=== PATIENT | female | born 1960 | race Two or more races ===

== ENCOUNTER 2020-06-02 06:30 | Outpatient (REF) | payer OTHER, SELFPAY ==
[2020-06-02 07:07] LABS: MANUAL DIFF FLAG NO
[2020-06-02 07:10] LABS: Basophils Percent Auto 0.6 % (0-2); Eosinophils Absolute Auto 0.1 X10*3/uL (0.0-0.4); Eosinophils Percent Auto 1.9 % (0-4); Hematocrit 40.2 % (37-47); Hemoglobin 13.1 g/dl (12.0-16.0); Imm Gran Abs Auto 0.02 X10*3/uL (0.00-0.03); Imm Gran Pct Auto 0.3 % (0.0-0.4); Lymphocytes Absolute Auto 2.4 X10*3/uL (1.2-4.9); Lymphocytes Percent Auto 37.9 % (20-40); Mean Corpuscular HGB Conc 32.6 g/dl (31.0-35.0); Mean Corpuscular Hemoglobin 30.2 pg (27.0-33.0); Mean Corpuscular Volume 92.6 fL (80-98); Mean Platelet Volume 10.7 fL (9.4-12.3); Monocytes Absolute Auto 0.4 X10*3/uL (0.1-1.2); Monocytes Percent Auto 7.1 % (2-11); Neutrophils Absolute Auto 3.2 X10*3/uL (2.0-8.3); Neutrophils Percent Auto 52.2 % (45-73); Platelet Count 335 X10*3/uL (160-400); Red Blood Count 4.34 X10*6/uL (4.20-5.50); Red Cell Distribution Width 12.4 % (11.0-16.0); White Blood Count 6.2 X10*3/uL (4.8-10.8)
[2020-06-02 07:48] LABS: Alanine Aminotransferase 17 U/L (0-31); Albumin Level 4.4 g/dL (3.5-5.0); Alkaline Phosphatase 71 U/L (39-117); Anion Gap 13 (12-20); Aspartate Amino Transferase 18 U/L (5-31); Bilirubin Total 0.8 mg/dL (0.0-1.0); Blood Urea Nitrogen 13 mg/dL (9-16); Calcium 8.9 mg/dL (8.4-10.2); Carbon Dioxide 25 mmol/L (22-29); Chloride 106 mmol/L (96-108); Estimated Glomerular Filt Rate > 60; Glucose Fasting 109 mg/dL (60-99); Potassium 4.6 mmol/l (3.3-5.1); Sodium 139 mmol/L (135-145); Total Protein 7.3 g/dL (6.5-8.0)
[2020-06-02 08:08] LABS: Free T4 (Free Thyroxine) 0.99 ng/dL (0.71-1.85); Thyroid Stimulating Hormone 2.83 uIU/mL (0.32-4.0)
== END 2020-06-02 06:31 | disposition home or self-care (01) ==
LOC: HO.LAB 06:30
PROVIDERS: Visit Provider Internal Medicine
DX: Z00.00 Encounter for general adult medical examination without abnormal findings (principal); Z13.29 Encounter for screening for other suspected endocrine disorder
CPT/HCPCS: 36415; 80053; 84439; 84443; 85025

== ENCOUNTER 2020-06-21 12:52 | Outpatient (REF) | payer OTHER, SELFPAY ==
--- NOTE | ~2020-06-21 | XR_ITS ---
EXAMINATION: XR HIP, LEFT CLINICAL INFORMATION: Left hip pain. COMPARISON: None TECHNIQUE: Two views of the left hip. FINDINGS: Mild joint space narrowing with small marginal osteophytes. No osseous erosion. No fracture or dislocation. Small marginal osteophytes at the symphysis pubis. No abnormal soft tissue calcification. XR/XR hip LT min 2V IMPRESSION: Mild left hip osteoarthritis. Mild degenerative arthritis at the symphysis pubis.
== END 2020-06-21 12:53 | disposition home or self-care (01) ==
LOC: HO.XRAY 12:52
PROVIDERS: PCP Internal Medicine; Visit Provider Internal Medicine
DX: M25.552 Pain in left hip (principal)
CPT/HCPCS: 73502

== ENCOUNTER 2020-08-24 11:42 | Outpatient (REF) | payer OTHER, SELFPAY ==
[2020-08-24 12:45] LABS: COVID-19 Test Negative (Negative)
== END 2020-08-24 11:43 | disposition home or self-care (01) ==
LOC: HO.LAB 11:42
PROVIDERS: Visit Provider Internal Medicine
DX: Z20.822 Contact with and (suspected) exposure to COVID-19 (principal)
CPT/HCPCS: 36415; 87635; C9803; U0003; U0005

== ENCOUNTER 2020-08-30 15:07 | Outpatient (REF) | payer OTHER, SELFPAY ==
[2020-08-30 15:38] LABS: COVID-19 Test Negative (Negative)
== END 2020-08-30 15:08 | disposition home or self-care (01) ==
LOC: HO.EMPCOV 15:07
PROVIDERS: Visit Provider Internal Medicine
DX: Z20.822 Contact with and (suspected) exposure to COVID-19 (principal)
CPT/HCPCS: 36415; 87635; C9803

== ENCOUNTER 2020-10-31 14:06 | Outpatient (REF) | payer OTHER, SELFPAY ==
[2020-10-31 14:30] VITALS: BP 149/78; PULSE 78; RESP 16; TEMP 36.7; O2SAT 98; BMI 28.3
[2020-10-31 14:58] LABS: COVID-19 Test Negative (Negative)
--- NOTE | 2020-10-31 15:00 | ED.MEDCLEAR ---
HPI - Medical Clearance General Chief complaint: Medical Clearance Stated complaint: covid test Time Seen by Provider: 10/31/20 14:47 Related Information Allergies Allergy/AdvReac Type Severity Reaction Status Date / Time ibuprofen [IBUPROFEN] Allergy Unknown HIVES Verified 10/31/20 14:33 [facility]LY [facility] Past Medical History Medical History (Updated 10/31/20 @ 15:01 by Tila Kaba DO) Hypertension Social History Social History Advance Directives: Yes Advance Directives Information Provided: Yes Advance Directives on File: No Physical Exam Vital Signs: Vital Signs: Last Vital Signs Temp 98.0 F 10/31/20 14:30 Pulse 78 10/31/20 14:30 Resp 16 10/31/20 14:30 BP 149/78 H 10/31/20 14:30 Pulse Ox 98 10/31/20 14:30 Body Mass Index 28.3 MDM - Medical Clearance Lab Data Labs: Lab Results 10/31/20 Range/Units 14:36 COVID-19 (DIANA) Negative (Negative) COVID-19 Clin Com See Note Discharge Plan Discharge Clinical Impression: COVID-19 ruled out by laboratory testing Patient Disposition: Home, Self-Care Instructions: COVID-19 (Coronavirus Disease 2019) (ED) Additional Instructions: return to ED for any worsening symptoms or concerns COVID TEST NEGATIVE
== END 2020-10-31 15:06 | disposition home or self-care (01) ==
LOC: HO.LAB 15:05
PROVIDERS: Visit Provider Internal Medicine
DX: Z20.822 Contact with and (suspected) exposure to COVID-19 (principal)
CPT/HCPCS: 36415; 87635; 99282

== ENCOUNTER 2020-11-08 06:50 | Outpatient (REF) | payer OTHER, SELFPAY ==
[2020-11-08 08:12] LABS: COVID-19 Test Negative (Negative)
== END 2020-11-08 06:51 | disposition home or self-care (01) ==
LOC: HO.LAB 06:50
PROVIDERS: Visit Provider Internal Medicine
DX: Z20.822 Contact with and (suspected) exposure to COVID-19 (principal)
CPT/HCPCS: 36415; 87635; C9803

== ENCOUNTER 2021-01-31 11:42 | Outpatient (REF) | payer OTHER, SELFPAY | END 2021-01-31 11:43 | disposition home or self-care (01) | LOC: HO.LAB 11:42 | PROVIDERS: Visit Provider Internal Medicine | DX: Z20.822 Contact with and (suspected) exposure to COVID-19 (principal) | CPT/HCPCS: C9803; U0003; U0005 ==

== ENCOUNTER 2021-02-07 14:33 | Outpatient (REF) | payer OTHER, SELFPAY | END 2021-02-07 14:34 | disposition home or self-care (01) | LOC: HO.LAB 14:33 | PROVIDERS: PCP Internal Medicine; Visit Provider Internal Medicine | DX: Z20.822 Contact with and (suspected) exposure to COVID-19 (principal) | CPT/HCPCS: C9803; U0003; U0005 ==

== ENCOUNTER 2021-02-17 09:06 | Outpatient (REF) | payer OTHER, SELFPAY ==
[2021-02-17 10:39] LABS: COVID-19 Test Negative (Negative)
== END 2021-02-17 09:07 | disposition home or self-care (01) ==
LOC: HO.EMPCOV 09:06
PROVIDERS: Visit Provider Internal Medicine
DX: Z20.822 Contact with and (suspected) exposure to COVID-19 (principal)
CPT/HCPCS: 36415; 87635; C9803

== ENCOUNTER 2021-04-26 | Outpatient (REF) | payer OTHER, SELFPAY | END 2021-04-26 00:01 | disposition home or self-care (01) | LOC: HO.LNP | PROVIDERS: PCP Internal Medicine; Visit Provider Internal Medicine | DX: Z12.4 Encounter for screening for malignant neoplasm of cervix (principal) | CPT/HCPCS: 88142 ==

== ENCOUNTER 2021-04-27 06:52 | Outpatient (REF) | payer OTHER, SELFPAY ==
[2021-04-27 07:06] LABS: MANUAL DIFF FLAG NO
[2021-04-27 07:14] LABS: Basophils Percent Auto 0.5 % (0-2); Eosinophils Absolute Auto 0.1 X10*3/uL (0.0-0.4); Eosinophils Percent Auto 1.6 % (0-4); Hematocrit 40.6 % (37.0-47.0); Hemoglobin 13.2 g/dl (12.0-16.0); Imm Gran Abs Auto 0.01 X10*3/uL (0.00-0.03); Imm Gran Pct Auto 0.2 % (0.0-0.4); Lymphocytes Absolute Auto 2.4 X10*3/uL (1.2-4.9); Lymphocytes Percent Auto 37.9 % (20-40); Mean Corpuscular HGB Conc 32.5 g/dl (31.0-35.0); Mean Corpuscular Hemoglobin 30.3 pg (27.0-33.0); Mean Corpuscular Volume 93.3 fL (80.0-98.0); Mean Platelet Volume 10.4 fL (9.4-12.3); Monocytes Absolute Auto 0.4 X10*3/uL (0.1-1.2); Monocytes Percent Auto 5.8 % (2-11); Neutrophils Absolute Auto 3.4 x10*3/uL (2.0-8.3); Platelet Count 338 X10*3/uL (160-400); Red Blood Count 4.35 X10*6/uL (4.20-5.50); Red Cell Distribution Width 12.7 % (11.0-16.0); White Blood Count 6.2 X10*3/uL (4.8-10.8)
[2021-04-27 07:29] LABS: Alanine Aminotransferase 16 U/L (0-31); Albumin Level 4.3 g/dL (3.5-5.0); Alkaline Phosphatase 72 U/L (39-117); Anion Gap 10 (12-20); Aspartate Amino Transferase 18 U/L (5-31); Bilirubin Total 0.8 mg/dL (0.0-1.0); Blood Urea Nitrogen 10 mg/dL (9-16); Calcium 9.2 mg/dL (8.4-10.2); Carbon Dioxide 26 mmol/L (22-29); Chloride 108 mmol/L (96-108); Estimated Glomerular Filt Rate > 60; Glucose Fasting 100 mg/dL (60-99); Potassium 4.3 mmol/L (3.3-5.1); Sodium 140 mmol/L (135-145); Total Protein 7.2 g/dL (6.5-8.0)
[2021-04-27 07:54] LABS: Thyroid Stimulating Hormone 3.36 uIU/mL (0.32-4.0)
== END 2021-04-27 06:53 | disposition home or self-care (01) ==
LOC: HO.LAB 06:52
PROVIDERS: PCP Internal Medicine; Visit Provider Internal Medicine
DX: Z00.00 Encounter for general adult medical examination without abnormal findings (principal); I10 Essential (primary) hypertension; R53.83 Other fatigue
CPT/HCPCS: 36415; 80053; 84443; 85025

== ENCOUNTER 2021-05-17 11:32 | Outpatient (REF) | payer OTHER, SELFPAY | END 2021-05-17 11:33 | disposition home or self-care (01) | LOC: HO.LAB 11:32 | PROVIDERS: Visit Provider Internal Medicine | DX: Z13.89 Encounter for screening for other disorder (principal) ==

== ENCOUNTER 2021-07-06 08:09 | Outpatient (REF) | payer OTHER, SELFPAY ==
--- NOTE | ~2021-07-06 | MM_ITS ---
EXAMINATION: MM SCREENING DIGITAL BREAST TOMOSYNTHESIS, BILATERAL CLINICAL INFORMATION: Screening. Asymptomatic. The lifetime risk of breast cancer based on the Tyrer-Cuzick Model is 5%. COMPARISON: Mammography: 09/17/2018, 09/14/2017, 04/12/2016 TECHNIQUE: Digital breast tomosynthesis is performed in both the craniocaudal and mediolateral oblique views along with computer-aided detection (CAD). Synthesized 2D images are generated from the tomosynthesis. FINDINGS: The breasts are heterogeneously dense, which may obscure small masses (ACR BI-RADS breast composition Category c). There are no significant masses, abnormal calcifications, or other abnormalities. Diffuse bilateral scattered punctate calcifications are again demonstrated, similar in number and distribution to prior exam. There is no developing density or architectural abnormality. The axilla are unremarkable. Mild bilateral nipple retraction is a chronic finding. MM/MM tomosynthesis screening BI IMPRESSION: No significant changes from prior studies. ASSESSMENT: BI-RADS 2: Benign RECOMMENDATION: Routine annual mammography screening. This patient's information was entered into a reminder system with a target due date for their next mammogram.
== END 2021-07-06 08:10 | disposition home or self-care (01) ==
LOC: HO.MAMMO 08:09
PROVIDERS: PCP Internal Medicine; Visit Provider Internal Medicine
DX: Z12.31 Encounter for screening mammogram for malignant neoplasm of breast (principal)
CPT/HCPCS: 77063; 77067

== ENCOUNTER 2021-07-22 07:58 | Outpatient (REF) | payer OTHER, SELFPAY ==
--- NOTE | ~2021-07-22 | US_ITS ---
EXAMINATION: US RETROPERITONEAL LIMITED (AORTA) CLINICAL INFORMATION: Family history of AAA. COMPARISON: None TECHNIQUE: Valenzuela-scale, color Doppler and spectral Doppler evaluation of the abdominal aorta. FINDINGS: There is scattered atherosclerotic disease without evidence of abdominal aortic aneurysm. The measurements of the aorta in maximum AP and transverse dimensions respectively are as follows: Proximal: 2.1 x 2.5 cm. Mid: 1.7 x 1.6 cm. Distal: 1.5 x 1.3 cm. PSV: 66 cm/s. The measurements of the common iliac arteries in maximum AP and TRV dimensions are as follows: Right Common Iliac Artery: 1.1 x 1.0 cm. Left Common Iliac Artery: 1.1 x 1.1 cm. US/US aorta IMPRESSION: 1. There is scattered atherosclerotic disease without evidence of abdominal aortic aneurysm..
== END 2021-07-22 07:59 | disposition home or self-care (01) ==
LOC: HO.US 07:58
PROVIDERS: PCP Internal Medicine; Visit Provider Internal Medicine
DX: I70.0 Atherosclerosis of aorta (principal); Z82.49 Family history of ischemic heart disease and other diseases of the circulatory system
CPT/HCPCS: 76775

== ENCOUNTER 2021-10-16 07:01 | Emergency (ER) | payer OTHER, SELFPAY ==
--- NOTE | ~2021-10-16 | XR_ITS ---
EXAMINATION: CR RIBS, RIGHT WITH CHEST X-RAY CLINICAL INFORMATION: Right anterior rib pain after fall. Fall on right side. COMPARISON: Chest x-ray dated 05/25/2018. TECHNIQUE: 3 views of the right ribs were obtained. FINDINGS: The cardiomediastinal silhouette is within normal limits in size. Lungs bilaterally are symmetrically expanded and clear. No focal consolidation, effusion or pneumothorax is seen. There is a mild S-shaped thoracolumbar scoliosis. There is a minimally displaced fracture of the lateral right ninth and 10th ribs and the anterior right eighth rib at the costochondral junction. XR/XR ribs RT min 3V w CXR1V IMPRESSION: Minimally displaced fractures of the right eighth, ninth and 10th ribs. No pneumothorax or pleural effusion.
[2021-10-16 07:15] VITALS: BP 172/88; PULSE 80; RESP 16; TEMP 36.1; BMI 29.2
--- NOTE | 2021-10-16 08:19 | ED_ITS ---
HPI - Fall General Chief Complaint: Fall Stated Complaint: Fall/R flank pain Time Seen by Provider: 10/16/21 07:49 Source: patient Mode of arrival: ambulatory History of Present Illness HPI Narrative: 61-year-old female without significant past medical history states that she came home the previous night, had to go to the bathroom really bad rushed into the bathroom tripped and slid falling onto her right chest wall in her bathroom whic h caused her significant pain. She states that on breathing there is increased pain on the right side of her chest but notes that there is no bruising. She has no history of smoking, asthma, COPD. Related Data Previous Rx's Medication Instructions Recorded ketorolac 10 mg tablet 10 mg PO Q6H PRN 5 Days #20 tab 10/16/21 Allergies Allergy/AdvReac Type Severity Reaction Status Date / Time ibuprofen [IBUPROFEN] Allergy Unknown HIVES Verified 10/31/20 14:33 Review of Systems Review of Systems: Pertinent positives and negatives as stated in HPI 10 point review of systems is otherwise negative. PMFSH Past Medical History Source: nursing notes reviewed Medical History Hypertension Social History Social History Patient Tobacco Use Status: Never used Tobacco Use of substances other than those prescribed or required for medical reasons: No Advance Directives: No Advance Directives Information Provided: No Physical Exam Vital Signs: Vital Signs: Last Vital Signs Temp 97.0 F 10/16/21 07:15 Pulse 74 10/16/21 08:23 Resp 16 10/16/21 08:23 BP 177/91 H 10/16/21 08:23 Pulse Ox 99 10/16/21 08:23 BMI result Body Mass Index 29.2 VITAL SIGNS: Reviewed. GENERAL: Well developed, well nourished, in no acute distress. HEAD: Normocephalic/atraumatic EYES: PERRLA, EOMI EARS: Ext canals without abnormality OROPHARYNX: no oral lesions noted, posterior pharynx clear LUNGS: Normal breath sounds. No adventitious sounds or accessory muscle use. SpO2<99>; CHEST WALL: There is reproducible chest wall tenderness at the approximate 8th 9th red without noted deformity or crepitus. CARDIOVASCULAR: Regular rate and rhythm without noted murmurs ABDOMEN: Soft, non-tender, non-distended with bowel sounds. MUSCULOSKELETAL: No tenderness, deformities, or effusions noted on gross inspection. EXTREMITIES: No cyanosis, clubbing or edema. SKIN: Inspection of the skin reveals no rashes NEUROLOGIC: Alert and oriented x 4. Course Course Course Narrative: 61-year-old female with history and clinical presentation most consistent with rib fractures and as there are bilateral breath sounds do not suspect pneumothorax. On review of all investigations patient has ribs 8 through 9 fractures without displacement. She was provided with combination analgesics including Toradol as well as lidocaine patch, is declining admission, she has received incentive spirometry training and is oxygenating well on room air. She has been formed of all results. Discharge Plan Discharge Clinical Impression: Multiple fractures of ribs of right side Patient Disposition: Home, Self-Care Instructions: How to Use an Incentive Spirometer (ED), Rib Fracture (ED) Additional Instructions: 1. Resume all home medications as prescribed. 2. Tylenol 1000 mg, orally, every 6 hours as needed for pain control. Do not exceed 4000 mg within 24 hours. 3. Lidocaine patch, apply to the area of maximal tenderness as directed on the outside packaging. 4. Please continue to use the incentive spirometer while you are awake, 8-10 times, every 4 hours. 5. Please follow-up with your primary care provider in the next 1-2 days for re- evaluation. Return to the ER for worsening symptoms. Prescriptions: New ketorolac 10 mg tablet 10 mg PO Q6H PRN (Reason: pain) 5 Days Qty: 20 0RF Rx Instructions: Patient received Toradol in the emergency room. Referrals: Chris Warner MD [Primary Care Provider] - Stand Alone Forms: Work/School Release
[2021-10-16 08:23] VITALS: BP 177/91; PULSE 74; RESP 16; O2SAT 99
[2021-10-16] MEDS: Acetaminophen 325 MG TABLET 975 MG PO (08:30)
[2021-10-16] MEDS: Lidocaine 4 % Patch ADH..PATCH 1 PATCH TRANSDERMA (08:32)
--- NOTE | 2021-10-16 09:11 | PC.NURSE ---
Pt states that she has a remote history of rash reaction with high dose ibuprofen many years ago. She states that she has however taken ibuprofen and naproxen since then many times with no reaction.
--- NOTE | 2021-10-16 09:14 | PC.NURSE ---
Pt states that she continues to have pain despite previous medications. aware and plans to order additional pain medication.
[2021-10-16] MEDS: Ketorolac Tromethamine 15 MG/ML VIAL IM (10:16)
== END 2021-10-16 10:29 | disposition home or self-care (01) ==
PROVIDERS: Emergency Provider Student in an Organized Health Care Education/Training Program; PCP Internal Medicine
DX: S22.41XA Multiple fractures of ribs, right side, initial encounter for closed fracture (principal); W01.198A Fall on same level from slipping, tripping and stumbling with subsequent striking against other object, initial encounter; Y93.89 Activity, other specified; Y92.002 Bathroom of unspecified non-institutional (private) residence as the place of occurrence of the external cause; Y99.9 Unspecified external cause status
CPT/HCPCS: 71101; 96372; 99284; J1885

== ENCOUNTER 2021-12-22 08:40 | Outpatient (REF) | payer OTHER, SELFPAY ==
--- NOTE | ~2021-12-22 | XR_ITS ---
EXAMINATION: XR RIBS, RIGHT WITH PA CHEST CLINICAL INFORMATION: Nonhealing rib fractures. COMPARISON: Radiographs dated 10/16/2021. TECHNIQUE: 4 views of the right ribs were obtained, together with a PA view of the chest. FINDINGS: Lungs are clear. No consolidation, pneumothorax, or pleural effusion. The cardiomediastinal silhouette and pulmonary vasculature are normal. A mildly displaced fracture seen of the distal right ninth rib, adjacent callus formation. No further fractures are identified. XR/XR ribs RT min 3V w CXR1V IMPRESSION: A mildly displaced fracture is redemonstrated of the distal right ninth rib, with adjacent periosteal callus formation. No further fracture is seen. There is no pleural effusion or pneumothorax.
== END 2021-12-22 08:41 | disposition home or self-care (01) ==
LOC: HO.XRAY 08:40
PROVIDERS: PCP Internal Medicine; Visit Provider Internal Medicine
DX: S22.32XD Fracture of one rib, left side, subsequent encounter for fracture with routine healing (principal)
CPT/HCPCS: 71101

== ENCOUNTER 2022-05-24 13:44 | Outpatient (REF) | payer OTHER, SELFPAY ==
--- NOTE | ~2022-05-24 | XR_ITS ---
EXAMINATION: XR MASTOIDS CLINICAL INFORMATION: Left mastoid pain COMPARISON: None TECHNIQUE: 4 views. FINDINGS: Bilateral mastoid sinuses are well-aerated and clear. No bony abnormality seen. The soft tissues are normal. XR/XR mastoids min 3V IMPRESSION: Unremarkable bilateral mastoid sinus exam.
[2022-05-24 13:57] LABS: MANUAL DIFF FLAG NO
[2022-05-24 14:25] LABS: Basophils Percent Auto 0.5 % (0-2); Eosinophils Absolute Auto 0.1 X10*3/uL (0.0-0.4); Hematocrit 39.4 % (37.0-47.0); Hemoglobin 12.7 g/dl (12.0-16.0); Imm Gran Abs Auto 0.02 X10*3/uL (0.00-0.03); Imm Gran Pct Auto 0.2 % (0.0-0.4); Lymphocytes Absolute Auto 2.8 X10*3/uL (1.2-4.9); Lymphocytes Percent Auto 34.8 % (20-40); Mean Corpuscular HGB Conc 32.2 g/dl (31.0-35.0); Mean Corpuscular Volume 93.1 fL (80.0-98.0); Mean Platelet Volume 10.8 fL (9.4-12.3); Monocytes Absolute Auto 0.5 X10*3/uL (0.1-1.2); Monocytes Percent Auto 6.3 % (2-11); Neutrophils Absolute Auto 4.7 x10*3/uL (2.0-8.3); Neutrophils Percent Auto 57.2 % (45-73); Platelet Count 341 X10*3/uL (160-400); Red Blood Count 4.23 X10*6/uL (4.20-5.50); Red Cell Distribution Width 12.9 % (11.0-16.0); White Blood Count 8.2 X10*3/uL (4.8-10.8)
[2022-05-24 14:55] LABS: C Reactive Protein 0.13 mg/dL (< or = 0.50)
== END 2022-05-24 13:45 | disposition home or self-care (01) ==
LOC: HO.XRAY 13:44
PROVIDERS: PCP Internal Medicine; Visit Provider Internal Medicine
DX: H92.02 Otalgia, left ear (principal); I10 Essential (primary) hypertension
CPT/HCPCS: 36415; 70130; 85025; 86140

== ENCOUNTER 2022-08-14 08:58 | Outpatient (REF) | payer OTHER, SELFPAY ==
--- NOTE | ~2022-08-14 | XR_ITS ---
EXAMINATION: XR RIBS, RIGHT CLINICAL INFORMATION: Right rib pain. COMPARISON: 12/22/2021 TECHNIQUE: PA chest and 3 views of the right ribs. FINDINGS: There is no evidence of acute parenchymal disease, pneumothorax, or pleural effusion. Heart normal size. No evidence of pulmonary edema. There is a nondisplaced fracture anterior aspect of the right 9th rib which is old. No acute displaced right rib fracture is appreciated on provided imaging. XR/XR ribs RT min 3V w CXR1V IMPRESSION: No acute parenchymal disease within the chest. No new displaced right rib fracture. Old right 9th rib fracture.
== END 2022-08-14 08:59 | disposition home or self-care (01) ==
LOC: HO.XRAY 08:58
PROVIDERS: PCP Internal Medicine; Visit Provider Internal Medicine
DX: R07.81 Pleurodynia (principal)
CPT/HCPCS: 71101

== ENCOUNTER 2022-08-16 10:42 | Outpatient (REF) | payer OTHER, SELFPAY ==
[2022-08-16 10:57] LABS: MANUAL DIFF FLAG NO
[2022-08-16 11:33] LABS: Appearance Urine Clear; Color Urine Yellow; Glucose Urine UA Negative (Negative); Leukocyte Esterase Urine Negative (Negative); Nitrite Urine Negative (Negative); Specific Gravity - Urine 1.025 (1.005-1.025); Urine Blood Negative (Negative); Urine Ketones Negative (Negative); Urine Protein Trace mg/dL (Neg-Trace)
[2022-08-16 11:41] LABS: Basophils Percent Auto 0.4 % (0-2); Eosinophils Absolute Auto 0.1 X10*3/uL (0.0-0.4); Eosinophils Percent Auto 1.2 % (0-4); Hematocrit 41.6 % (37.0-47.0); Hemoglobin 13.3 g/dl (12.0-16.0); Imm Gran Abs Auto 0.02 X10*3/uL (0.00-0.03); Imm Gran Pct Auto 0.3 % (0.0-0.4); Lymphocytes Absolute Auto 2.2 X10*3/uL (1.2-4.9); Lymphocytes Percent Auto 30.5 % (20-40); Mean Corpuscular Hemoglobin 29.6 pg (27.0-33.0); Mean Corpuscular Volume 92.7 fL (80.0-98.0); Mean Platelet Volume 10.8 fL (9.4-12.3); Monocytes Absolute Auto 0.4 X10*3/uL (0.1-1.2); Monocytes Percent Auto 5.6 % (2-11); Neutrophils Absolute Auto 4.5 x10*3/uL (2.0-8.3); Platelet Count 349 X10*3/uL (160-400); Red Blood Count 4.49 X10*6/uL (4.20-5.50); Red Cell Distribution Width 13.1 % (11.0-16.0); White Blood Count 7.3 X10*3/uL (4.8-10.8)
[2022-08-16 12:17] LABS: Anion Gap 12 (12-20); Blood Urea Nitrogen 11 mg/dL (9-16); C Reactive Protein 0.15 mg/dL (< or = 0.50); Calcium 9.4 mg/dL (8.4-10.2); Carbon Dioxide 28 mmol/L (22-29); Chloride 108 mmol/L (96-108); Estimated Glomerular Filt Rate > 60; Glucose Random 95 mg/dL (60-115); Potassium 4.5 mmol/L (3.3-5.1); Sodium 143 mmol/L (135-145)
== END 2022-08-16 10:43 | disposition home or self-care (01) ==
LOC: HO.LAB 10:42
PROVIDERS: PCP Internal Medicine; Visit Provider Internal Medicine
DX: R10.9 Unspecified abdominal pain (principal); M54.9 Dorsalgia, unspecified
CPT/HCPCS: 36415; 80048; 81003; 85025; 86140; 87086

== ENCOUNTER 2022-10-28 20:01 | Emergency (ER) | payer OTHER, SELFPAY ==
--- NOTE | ~2022-10-28 | CT_ITS ---
EXAMINATION: CT SOFT TISSUE NECK WITH CONTRAST CLINICAL INFORMATION: Left swollen tonsil, question abscess COMPARISON: None available. TECHNIQUE: Following the intravenous administration of 60 mL of Omnipaque 350 intravenous contrast, helical imaging was performed in the axial plane with generation of coronal and sagittal reformatted images. This CT examination was performed using dose optimization techniques as appropriate, variously including the following: *Automated exposure control *Adjustment of mA and/or kV according to patient size (this includes techniques or standardized protocols for targeted exams where dose is matched to indication/reason for exam; i.e. extremities or head) *Use of iterative reconstruction technique DLP: 379 mGy-cm FINDINGS: There is prominent enhancement of the nasopharyngeal mucosa suggesting pharyngitis. There is asymmetric enlargement and heterogeneity of the left palatine tonsil which has a somewhat striated appearance suspicious for tonsillitis; no discrete abscess is seen. Few mildly prominent upper left cervical lymph nodes are suspected to be reactive. The parapharyngeal fat is preserved. The communications project lead, parotid, and submandibular spaces otherwise appear normal and symmetric bilaterally. The carotid vasculature is patent. The thyroid gland is unremarkable. The lung apices are clear. Visualized portions of the brain parenchyma are unremarkable. The mastoid air cells are well aerated. Partially opacified right sphenoid sinus. The visualized orbits are unremarkable. The mandibular condyles are well-seated in the condylar fossa. There is degenerative change at the atlantodens articulation. There is disc space narrowing at C5-C6 with associated endplate osteophytes. No acute fracture is seen. CT/CT soft tissue neck w IV con IMPRESSION: Asymmetric enlargement and heterogeneity of the left palatine tonsil suspicious for tonsillitis. No discrete abscess identified. Prominent nasopharyngeal mucosa suggesting pharyngitis.
[2022-10-28 20:02] VITALS: BP 159/93; PULSE 99; RESP 18; TEMP 36.8; O2SAT 99; BMI 29.3
--- NOTE | 2022-10-28 20:04 | ED_ITS ---
HPI - General Adult General Chief complaint: Upper Respiratory Symptoms Stated complaint: swollen throat Time Seen by Provider: 10/28/22 21:43 Source: patient Mode of arrival: ambulatory Limitations: no limitations History of Present Illness HPI narrative: 62-year-old female who presents emergency department for evaluation of headache and sore throat. Patient states that over the past 4 days she has developed a migraine headache, she does have a history of migraines. States that the pain is located in the frontal aspect of her head, the pain is a constant, pressure- like sensation which is 6/10 at its worst. She does have photophobia with no other associated symptoms. She states that over the past 2 days she has developed a sore throat left greater than right, she states that it is painful to swallow. She has not had any difficulty swallowing her secretions or difficulty breathing. She her, rhinorrhea, cough, chest pain, shortness of breath, nausea, vomiting, diarrhea, weakness. As noted occasional shaking chills. Related Data Previous Rx's Medication Instructions Recorded ketorolac 10 mg tablet 10 mg PO Q6H PRN pain 5 days #20 10/16/21 tabs metoclopramide HCl 10 mg tablet 10 mg PO Q6H PRN nausea and 10/28/22 (Reglan) vomiting #14 tabs penicillin V potassium 500 mg 500 mg PO QID 10 days #40 tabs 10/28/22 tablet Allergies Allergy/AdvReac Type Severity Reaction Status Date / Time ibuprofen [IBUPROFEN] Allergy Unknown HIVES Verified 10/31/20 14:33 Review of Systems Review of Systems: Yes all other systems are reviewed and are negative [facility] Past Medical History Medical History Hypertension Social History Social History Patient Tobacco Use Status: Never used Tobacco Smoked in Last 30 Days: No Advance Directives: No Advance Directives Information Provided: No Physical Exam ED Vital Signs: Vital Signs - 24 hr 10/28/22 20:02 Temperature 98.3 F Pulse Rate 99 Respiratory Rate 18 Blood Pressure 159/93 H Pulse Oximetry 99 Oxygen Delivery Method Room Air BMI result Body Mass Index 29.3 Const Other: Awake, alert, female patient, pleasant, cooperative, no distress, has no difficulty handling her secretions HENMT Head: Yes normal to inspection, Yes normocephalic and Yes atraumatic Ears: external ears normal General nose exam: Normal external nose present Face and sinus: Yes normal facial exam Mouth: Normal oral and palatal mucosa present, moist mucous membranes, no audible dysphonia, no drooling, no muffled voice, no trismus and other (Left tonsillar exudates with no significant tonsillar swelling) Throat: Yes posterior oropharynx normal Eyes General: appearance normal, both eyes and all related structures Pupils: Equal, round and reactive pupils present Neck Neck: Yes normal visual inspection, Yes no lymphadenopathy, Yes trachea midline and Yes supple Chest Chest palpation & inspection: normal inspection of the chest and normal palpation of entire chest wall Resp Effort & Inspection: normal respiratory effort and able to speak in complete sentences Auscultation: clear to auscultation bilaterally Cardio Rate: regular rate Rhythm: regular rhythm Heart sounds: S1 normal heart sound present, S2 normal heart sound present and no murmurs GI Inspection: Yes normal to inspection Palpation (GI): Soft to palpation, nontender and no guarding Auscultation: normal bowel sounds General: Yes no CVA tenderness Back/Spine/Pelvis Back: no CVA tenderness Skin General skin exam: no rashes or lesions noted Neuro Cranial nerves: Yes CN's II-XII intact bilaterally and Yes Equal, round and reactive pupils present Cognition (Neuro): normal cognition Motor exam (neuro): 5/5 motor strength present throughout Extrem General: Yes normal to inspection Psych Appearance: grossly normal Speech and movement: Normal speech and movement present Affect: normal affect Attitude: cooperative Thought process: Normal thought process present Thought content: Normal thought content present Course Course Course Narrative: This is an RME: Additional HPI, ROS, PE not included below will be deferred to primary provider. 62-year-old female presents with sore throat for the past few days worsening, did reports changes in voice and difficulty swallowing. Reports associated fatigue, malaise. Physical exam with erythematous posterior pharynx, left tonsil appears edematous, question possible small abscess with some exudate. Plan labs, imaging, CT soft tissue neck to rule out peritonsillar abscess. Strep test ordered. Medications Administered Discontinued Medications Generic Name Dose Route Start Last Admin Trade Name Freq PRN Reason Stop Dose Admin Dexamethasone Sodium Phosphate 10 mg 10/28/22 20:04 10/28/22 20:21 Dexamethasone Sod Phosphate 10 Mg/Ml Vial IVPUSH 10/28/22 20:05 10 mg ONCE ONE Administration Diphenhydramine HCl 50 mg 10/28/22 21:56 10/28/22 22:05 Diphenhydramine Hcl 50 Mg/Ml Vial IVPUSH 10/28/22 21:57 50 mg ONCE STA Administration Iohexol 100 ml 10/28/22 20:58 10/28/22 20:58 Iohexol 350 Mg/Ml 100 Ml Infus..Btl IV 10/28/22 20:59 60 ml ONCE ONE Administration Ketorolac Tromethamine 15 mg 10/28/22 21:56 10/28/22 22:09 Ketorolac Tromethamine 15 Mg/Ml Vial IVPUSH 10/28/22 21:57 15 mg ONCE STA Administration Metoclopramide HCl 10 mg 10/28/22 21:56 10/28/22 22:09 Metoclopramide Hcl 10 Mg/2 Ml Vial IVPUSH 10/28/22 21:57 10 mg ONCE STA Administration Penicillin V Potassium 500 mg 10/28/22 21:56 10/28/22 22:04 Penicillin V Potassium 250 Mg Tablet PO 10/28/22 21:57 500 mg ONCE ONE Administration Medical Decision Making Medical Decision Making MDM Narrative: 62-year-old female with history of migraine headaches, hypertension who presents emergency department for evaluation of headache and sore throat. Vital signs revealed an elevated blood pressure 159/93. Patient's mouth exam did reveal asymmetric exudates on the left with no significant tonsillar swelling, patient has no trismus and no difficulty with handling her secretions. Patient's neurologic exam was nonfocal. Patient was seen by provider at triage and following was ordered: CBC, CMP, rapid strep, CT soft tissue neck with IV contrast to rule out abscess. Patient's migraine headache was treated with Toradol 15 mg IV, Reglan 10 mg IV and Benadryl 50 mg IV. Patient was also given penicillin 500 mg orally for possible tonsillitis/strep throat. 2201: My independent interpretation patient's laboratory evaluation as follows: CBC was normal. CMP unremarkable except for elevated glucose 121. Rapid strep was negative. 2255: The patient's migraine headache is resolved with the above treatment CT scan of the neck did not reveal an abscess but is consistent with left sided tonsillitis Patient will be treated with penicillin 500 mg, 1 pill 4 times a day for 10 days. She was advised broken for pain She was given printed and verbal instructions and discharged home Differential Diagnosis Differential diagnosis includes was not limited to strep pharyngitis, tonsillitis, tonsillar abscess, parapharyngeal cellulitis Admission/Observation Consideration of admission/observation: Escalation of care including admissi on/observation considered Lab Data [facility] Lab Attestation statement: I reviewed the patient's lab results. 10/28/22 20:13 10/28/22 20:13 Labs: Lab Results 10/28/22 10/28/22 10/28/22 Range/Units 20:13 20:13 20:25 WBC 9.3 (4.8-10.8) X10*3/uL RBC 4.51 (4.20-5.50) X10*6/uL Hgb 13.4 (12.0-16.0) g/dl Hct 40.4 (37.0-47.0) % MCV 89.6 (80.0-98.0) fL MCH 29.7 (27.0-33.0) pg MCHC 33.2 (31.0-35.0) g/dl RDW 12.9 (11.0-16.0) % Plt Count 326 (160-400) X10*3/uL MPV 10.1 (9.4-12.3) fL Immature Gran % (Auto) 0.3 (0.0-0.4) % Neut % (Auto) 67.9 (45-73) % Lymph % (Auto) 23.7 (20-40) % [place] % (Auto) 7.8 (2-11) % Eos % (Auto) 0.1 (0-4) % Baso % (Auto) 0.2 (0-2) % Lymph # (Auto) 2.2 (1.2-4.9) X10*3/uL [place] # (Auto) 0.7 (0.1-1.2) X10*3/uL Eos # (Auto) 0.0 (0.0-0.4) X10*3/uL Baso # (Auto) 0.0 (0.0-0.2) X10*3/uL Abs Immat Gran (auto) 0.03 (0.00-0.03) X10*3/uL Absolute Neuts (auto) 6.3 (2.0-8.3) x10*3/uL Absolute Nucleated RBC 0.000 (0.0-0.012) X10*3/uL Nucleated RBC % (auto) 0.0 (0.0-0.2) /100WBC Sodium 138 (135-145) mmol/L Potassium 3.8 (3.3-5.1) mmol/L Chloride 104 (96-108) mmol/L Carbon Dioxide 23 (22-29) mmol/L Anion Gap 15 (12-20) BUN 14 (9-16) mg/dL Creatinine 0.81 (0.5-1.4) mg/dL Estim Creat Clear Calc 68.9 Estimated GFR > 60 Random Glucose 121 H (60-115) mg/dL Calcium 9.5 (8.4-10.2) mg/dL Total Bilirubin 0.5 (0.0-1.0) mg/dL AST 27 (5-31) U/L ALT 18 (0-31) U/L Alkaline Phosphatase 81 (39-117) U/L Total Protein 8.3 H (6.5-8.0) g/dL Albumin 4.2 (3.5-5.0) g/dL S. pyogenes GrpA MARICEL Negative (Negative) Radiology Impression Discussion of test interpretation with radiology: I have reviewed the radiologist's reading. Radiologist Impression: CT soft tissue neck w IV con IMPRESSION: Asymmetric enlargement and heterogeneity of the left palatine tonsil suspicious for tonsillitis. No discrete abscess identified. Prominent nasopharyngeal mucosa suggesting pharyngitis. Dictated By:Jb Johnson MD Discharge Plan Discharge Clinical Impression: Headache, migraine Qualifiers: Migraine type: without aura Status migrainosus presence: without status migrainosus Intractability: not intractable Qualified Code(s): G43.009 - Migrain e without aura, not intractable, without status migrainosus Acute tonsillitis Qualifiers: Pharyngitis/tonsillitis etiology: unspecified etiology Qualified Code(s): J03.90 - Acute tonsillitis, unspecified Patient Disposition: Home, Self-Care Instructions: Migraine Headache (ED), Tonsillectomy (DC) Additional Instructions: Your blood work was unremarkable. Your rapid strep test was negative. The CT scan IV contrast revealed left-sided tonsillitis with no abscess/collection of pus which is reassuring. Take penicillin 500 mg pills, 1 pill 4 times a day for 10 days. Finish the entire antibiotic prescription. Your symptoms are consistent with a migraine. I want you to take the following 3 medications together every 6 hours as needed for headache, nausea or vomiting. Reglan (metoclopramide) in 10 mg, 1 pill Benadryl 25 mg, 2 pills Your naproxen After you take these medications, lie down in a dark quiet room and try to fall asleep. These medications will make you sleepy, do not drive or work after taking these medications. Follow-up with your doctor in 2 days. Please return to the emergency department if your symptoms get worse or if you develop any symptoms that are concerning to you. Prescriptions: New penicillin V potassium 500 mg tablet 500 mg PO QID 10 Days Qty: 40 0RF metoclopramide HCl [Reglan] 10 mg tablet 10 mg PO Q6H PRN (Reason: nausea and vomiting) Qty: 14 0RF No Action ketorolac 10 mg tablet 10 mg PO Q6H PRN (Reason: pain) 5 Days Qty: 20 0RF Rx Instructions: Patient received Toradol in the emergency room.
[2022-10-28 20:17] LABS: MANUAL DIFF FLAG NO
[2022-10-28 20:19] LABS: Basophils Percent Auto 0.2 % (0-2); Eosinophils Percent Auto 0.1 % (0-4); Hematocrit 40.4 % (37.0-47.0); Hemoglobin 13.4 g/dl (12.0-16.0); Imm Gran Abs Auto 0.03 X10*3/uL (0.00-0.03); Imm Gran Pct Auto 0.3 % (0.0-0.4); Lymphocytes Absolute Auto 2.2 X10*3/uL (1.2-4.9); Lymphocytes Percent Auto 23.7 % (20-40); Mean Corpuscular HGB Conc 33.2 g/dl (31.0-35.0); Mean Corpuscular Hemoglobin 29.7 pg (27.0-33.0); Mean Corpuscular Volume 89.6 fL (80.0-98.0); Mean Platelet Volume 10.1 fL (9.4-12.3); Monocytes Absolute Auto 0.7 X10*3/uL (0.1-1.2); Monocytes Percent Auto 7.8 % (2-11); Neutrophils Absolute Auto 6.3 x10*3/uL (2.0-8.3); Neutrophils Percent Auto 67.9 % (45-73); Platelet Count 326 X10*3/uL (160-400); Red Blood Count 4.51 X10*6/uL (4.20-5.50); Red Cell Distribution Width 12.9 % (11.0-16.0); White Blood Count 9.3 X10*3/uL (4.8-10.8)
[2022-10-28] MEDS: dexAMETHasone sod phosphate 10 MG/ML VIAL IVPUSH (20:21)
--- NOTE | 2022-10-28 20:30 | PC.NURSE ---
20G IV placed left AC, medicated per MAR, strep swab obtained, pt to CT.
[2022-10-28 20:36] LABS: Alanine Aminotransferase 18 U/L (0-31); Albumin Level 4.2 g/dL (3.5-5.0); Alkaline Phosphatase 81 U/L (39-117); Anion Gap 15 (12-20); Aspartate Amino Transferase 27 U/L (5-31); Bilirubin Total 0.5 mg/dL (0.0-1.0); Blood Urea Nitrogen 14 mg/dL (9-16); Calcium 9.5 mg/dL (8.4-10.2); Carbon Dioxide 23 mmol/L (22-29); Chloride 104 mmol/L (96-108); Creatinine Clr Calc Pharmacy 68.9; Estimated Glomerular Filt Rate > 60; Glucose Random 121 mg/dL (60-115); Potassium 3.8 mmol/L (3.3-5.1); Sodium 138 mmol/L (135-145); Total Protein 8.3 g/dL (6.5-8.0)
[2022-10-28 20:40] LABS: IDNOW Serial# 6674DD1D; Strep A Nucleic Acid Negative (Negative)
[2022-10-28] MEDS: iohexoL 350 MG/ML 100 ML INFUS..BTL IV (20:58)
[2022-10-28] MEDS: Penicillin V Potassium 250 MG TABLET 500 MG PO (22:04)
[2022-10-28] MEDS: diphenhydrAMINE HCL 50 MG/ML VIAL IVPUSH (22:05)
[2022-10-28] MEDS: Metoclopramide HCl 10 MG/2 ML VIAL IVPUSH (22:09)
[2022-10-28] MEDS: Ketorolac Tromethamine 15 MG/ML VIAL IVPUSH (22:09)
[2022-10-28 23:04] VITALS: BP 150/85; PULSE 96; RESP 16; TEMP 37.2; O2SAT 97
== END 2022-10-28 23:10 | disposition home or self-care (01) ==
PROVIDERS: Physician Assistant; Emergency Provider Emergency Medicine Emergency Medical Services; PCP Internal Medicine
DX: G43.009 Migraine without aura, not intractable, without status migrainosus (principal); J03.90 Acute tonsillitis, unspecified
CPT/HCPCS: 36415; 70491; 80053; 85025; 87651; 96374; 96375; 99284; J1100; J1200; J1885; J2765; Q9967

== ENCOUNTER 2023-02-08 08:49 | Emergency (ER) | payer OTHER, SELFPAY ==
--- NOTE | ~2023-02-08 | XR_ITS ---
EXAMINATION: XR CHEST CLINICAL INFORMATION: Chest pain COMPARISON: Chest and RIBS 08/14/2022 TECHNIQUE: Frontal view of the chest was obtained. FINDINGS: No significant abnormality is noted involving the heart, lungs, mediastinum, bony thorax or soft tissues. Again seen is a biconvex thoracolumbar scoliosis. XR/XR chest 1V IMPRESSION: No acute intrathoracic disease.
--- NOTE | 2023-02-08 08:51 | ECG_ITS ---
Test Reason : CHEST PAIN Blood Pressure : / mmHG Vent. Rate : 089 BPM Atrial Rate : 089 BPM P-R Int : 132 ms QRS Dur : 068 ms QT Int : 368 ms P-R-T Axes : 067 009 043 degrees QTc Int : 447 ms Normal sinus rhythm Normal ECG When compared with ECG of 19-APR-2016 15:41, T wave amplitude has decreased in Anterior leads Referred By: Generic ED Physician Electronically Signed By:MARTIN DUBON
[2023-02-08 08:54] VITALS: BP 185/85; PULSE 87; RESP 16; TEMP 36.4; O2SAT 100; BMI 29.5
[2023-02-08 09:49] LABS: MANUAL DIFF FLAG NO
--- NOTE | 2023-02-08 09:50 | ED_ITS ---
HPI - Chest Pain General Chief Complaint: Chest Pain Stated Complaint: chest pain/ HBP Time Seen by Provider: 02/08/23 09:22 Source: patient Mode of arrival: ambulatory Limitations: no limitations History of Present Illness HPI narrative: 63 yo female with PMH of HTN here with c/o chest pressure starting yesterday while sitting at work. She also noted some tingling in R arm. She has no nausea/vomiting or dyspnea. No pain with exertion. NO recent travel or procedures. She notes her BP was very high at home she is supposed to take amlodipine 5mg daily but admits she only took it yesterday and really hasn't taken it in months. She notes her BP was 180s. She has no known CAD. her last aorta US was in 2021 no aneurysm detected. MD complaint: chest pain Onset (ago): day(s) Timing of current episode: constant Prior episodes: No Onset: during rest Pain location: substernal Pain radiation: none Severity: mild Quality: other (pressure) Relieving factors: nothing Exacerbating factors: nothing Context: non compliance with medication Treatment prior to arrival: none Related Data Previous Rx's Medication Instructions Recorded ketorolac 10 mg tablet 10 mg PO Q6H PRN pain 5 days #20 10/16/21 tabs metoclopramide HCl 10 mg tablet 10 mg PO Q6H PRN nausea and 10/28/22 (Reglan) vomiting #14 tabs penicillin V potassium 500 mg 500 mg PO QID 10 days #40 tabs 10/28/22 tablet Allergies Allergy/AdvReac Type Severity Reaction Status Date / Time ibuprofen [IBUPROFEN] Allergy Unknown HIVES Verified 10/31/20 14:33 Review of Systems 2 Review of Systems: Constitutional : No Weight loss, No Fever, No Chills ENT/Mouth : No sore throat, No Rhinorrhea Eyes: No Eye Pain, No Swelling Cardiovascular : pos Chest Pain, no SOB, no Dyspnea on Exertion, No Orthopnea, No Edema, No Palpitations Respiratory : No Cough, No Sputum Gastrointestinal : no Nausea, No Vomiting, No Diarrhea, No abdominal Pain, No Hematochezia, No Melena Genitourinary : No Dysuria, No Urinary Frequency Musculoskeletal : No joint pain, No Myalgias, No Joint Swelling Skin : No Skin Lesions, No rash Neuro : No Weakness, No Numbness, No Dizziness, No Headache Psych : No Anxiety/Panic, No Depression All other systems reviewed and are negative [facility] Past Medical History Attestation statement: The following information was validated with the patient. Medical History Hypertension Social History Social History Alcohol intake: current Alcohol intake frequency: holidays/special occasions only Patient Tobacco Use Status: Never used Tobacco Smoked in Last 30 Days: No Use of substances other than those prescribed or required for medical reasons: No Advance Directives: No Advance Directives Information Provided: No Physical Exam 2 Vital Signs: Vital Signs: Last Vital Signs Temp 98.2 F 02/08/23 10:06 Pulse 79 02/08/23 10:06 Resp 15 02/08/23 10:06 BP 164/83 H 02/08/23 10:06 Pulse Ox 100 02/08/23 10:06 O2 Del Method Room Air 02/08/23 10:06 BMI result Body Mass Index 29.5 Appearance: Alert. Oriented X3. No acute distress. Eyes: Pupils equal, round and reactive to light. ENT: Pharynx normal. Neck: Normal inspection. Neck supple. CVS: Normal heart rate and rhythm. Pulses normal. Respiratory: No respiratory distress. Breath sounds normal. Abdomen: Soft and nontender. Skin: Skin warm and dry. Normal skin color. Normal skin turgor. Extremities: No lower extremity edema. No calf ttp Neuro: Oriented X 3. No motor deficit. No sensory deficit. Medical Decision Making Medical Decision Making [facility] Narrative: 63 yo female with hx of HTN here with c/o chest pressure and elevated BPs at home in setting of noncompliance at this time BP is coming down she has a wells score of 0 for PE doubt VTE, she has atypical pain and nonischemic EKG, she has distal pulses intact doubt dissection and no abdominal pain to suggest aneurysm. At this time EKG, CXR and troponin x 2 ordered. Differential Diagnosis Differential Diagnoses: The differential diagnosis associated with the presentation includes HTN, atypical chest pain Wells score 0 doubt PE no abdominal pain to suggest enlarging aneurysm distal pulses intact doubt dissection Admission/Observation Consideration of admission/observation: Escalation of care including admission/observation considered negative EKG and trop x 2, BP coming down stable for DC Lab Data [facility] Lab Attestation statement: I reviewed the patient's lab results. 02/08/23 09:45 02/08/23 09:45 Labs: Lab Results 02/08/23 02/08/23 Range/Units 09:45 10:53 WBC 9.0 (4.8-10.8) X10*3/uL RBC 4.80 (4.20-5.50) X10*6/uL Hgb 14.3 (12.0-16.0) g/dl Hct 44.3 (37.0-47.0) % MCV 92.3 (80.0-98.0) fL MCH 29.8 (27.0-33.0) pg MCHC 32.3 (31.0-35.0) g/dl RDW 12.8 (11.0-16.0) % Plt Count 416 H D (160-400) X10*3/uL MPV 10.1 (9.4-12.3) fL Immature Gran % (Auto) 0.7 H (0.0-0.4) % Neut % (Auto) 64.6 (45-73) % Lymph % (Auto) 26.9 (20-40) % [place] % (Auto) 5.8 (2-11) % Eos % (Auto) 1.4 (0-4) % Baso % (Auto) 0.6 (0-2) % Lymph # (Auto) 2.4 (1.2-4.9) X10*3/uL [place] # (Auto) 0.5 (0.1-1.2) X10*3/uL Eos # (Auto) 0.1 (0.0-0.4) X10*3/uL Baso # (Auto) 0.1 (0.0-0.2) X10*3/uL Abs Immat Gran (auto) 0.06 H (0.00-0.03) X10*3/uL Absolute Neuts (auto) 5.8 (2.0-8.3) x10*3/uL Absolute Nucleated RBC 0.000 (0.0-0.012) X10*3/uL Nucleated RBC % (auto) 0.0 (0.0-0.2) /100WBC Sodium 139 (135-145) mmol/L Potassium 4.3 (3.3-5.1) mmol/L Chloride 104 (96-108) mmol/L Carbon Dioxide 26 (22-29) mmol/L Anion Gap 13 (12-20) BUN 12 (9-16) mg/dL Creatinine 0.71 (0.5-1.4) mg/dL Estim Creat Clear Calc 68.8 Estimated GFR > 60 Random Glucose 117 H (60-115) mg/dL Calcium 9.7 (8.4-10.2) mg/dL Magnesium 2.2 (1.6-2.6) mg/dL Total Bilirubin 0.7 (0.0-1.0) mg/dL Direct Bilirubin 0.2 (0.0-0.5) mg/dL AST 20 (5-31) U/L ALT 17 (0-31) U/L Alkaline Phosphatase 80 (39-117) U/L Troponin I High Sens < 2.7 < 2.7 (<3.5-17.0) ng/L Total Protein 8.2 H (6.5-8.0) g/dL Albumin 4.5 (3.5-5.0) g/dL COVID-19 (DIANA) Negative (Negative) COVID-19 Clin Com See Note Independent Interpretation I performed an independent interpretation of an: EKG and Plain X-Ray (normal ) Interpretation: Rate: 89 Rhythm: NSR [place]: left Normal P waves. Normal [place]. Normal QRS complex. ST T wave : normal no [place] qTC: normal prior studies: no acute ischemia The study has been interpreted contemporaneously by me. . Radiology Impression Discussion of test interpretation with radiology: I have reviewed the radiologist's reading. External Record Review External record reviewed: Inpatient record Chronic Conditions Patient?s care impacted by: Hypertension Discharge Plan Discharge Clinical Impression: Chest pain Qualifiers: Chest pain type: unspecified Qualified Code(s): R07.9 - Chest pain, unspecified Patient Disposition: Home, Self-Care Instructions: Chest Pain (ED), Chronic Hypertension (ED) Additional Instructions: normal EKG and heart tests x 2, you need to take your medications every day. follow up with cardiology for outpatient stress test. call for appointment return for worsening symptoms, pain nausea, difficulty breathing or any other concerns. call your doctor for appointment in next week Prescriptions: No Action ketorolac 10 mg tablet 10 mg PO Q6H PRN (Reason: pain) 5 Days Qty: 20 0RF Rx Instructions: Patient received Toradol in the emergency room. penicillin V potassium 500 mg tablet 500 mg PO QID 10 Days Qty: 40 0RF metoclopramide HCl [Reglan] 10 mg tablet 10 mg PO Q6H PRN (Reason: nausea and vomiting) Qty: 14 0RF Referrals: Rufino Donnelly MD [Physician] - (call for outpatient stress test) Stand Alone Forms: Work/School Release
[2023-02-08 09:57] LABS: Basophils Absolute Auto 0.1 X10*3/uL (0.0-0.2); Basophils Percent Auto 0.6 % (0-2); Eosinophils Absolute Auto 0.1 X10*3/uL (0.0-0.4); Eosinophils Percent Auto 1.4 % (0-4); Hematocrit 44.3 % (37.0-47.0); Hemoglobin 14.3 g/dl (12.0-16.0); Imm Gran Abs Auto 0.06 X10*3/uL (0.00-0.03); Imm Gran Pct Auto 0.7 % (0.0-0.4); Lymphocytes Absolute Auto 2.4 X10*3/uL (1.2-4.9); Lymphocytes Percent Auto 26.9 % (20-40); Mean Corpuscular HGB Conc 32.3 g/dl (31.0-35.0); Mean Corpuscular Hemoglobin 29.8 pg (27.0-33.0); Mean Corpuscular Volume 92.3 fL (80.0-98.0); Mean Platelet Volume 10.1 fL (9.4-12.3); Monocytes Absolute Auto 0.5 X10*3/uL (0.1-1.2); Monocytes Percent Auto 5.8 % (2-11); Neutrophils Absolute Auto 5.8 x10*3/uL (2.0-8.3); Neutrophils Percent Auto 64.6 % (45-73); Platelet Count 416 X10*3/uL (160-400); Red Cell Distribution Width 12.8 % (11.0-16.0)
[2023-02-08 10:06] VITALS: BP 164/83; PULSE 79; RESP 15; TEMP 36.8; O2SAT 100
[2023-02-08 10:09] LABS: Alanine Aminotransferase 17 U/L (0-31); Albumin Level 4.5 g/dL (3.5-5.0); Alkaline Phosphatase 80 U/L (39-117); Anion Gap 13 (12-20); Aspartate Amino Transferase 20 U/L (5-31); Bilirubin Direct 0.2 mg/dL (0.0-0.5); Bilirubin Total 0.7 mg/dL (0.0-1.0); Blood Urea Nitrogen 12 mg/dL (9-16); Calcium 9.7 mg/dL (8.4-10.2); Carbon Dioxide 26 mmol/L (22-29); Chloride 104 mmol/L (96-108); Creatinine Clr Calc Pharmacy 68.8; Estimated Glomerular Filt Rate > 60; Glucose Random 117 mg/dL (60-115); Magnesium 2.2 mg/dL (1.6-2.6); Potassium 4.3 mmol/L (3.3-5.1); Sodium 139 mmol/L (135-145); Total Protein 8.2 g/dL (6.5-8.0)
[2023-02-08 10:10] LABS: COVID-19 Test Negative (Negative); IDNOW Serial# 9DB6401D
[2023-02-08 10:20] LABS: Troponin-I High Sensitivity < 2.7 ng/L (<3.5-17.0)
[2023-02-08 11:30] LABS: Troponin-I High Sensitivity < 2.7 ng/L (<3.5-17.0)
== END 2023-02-08 12:08 | disposition home or self-care (01) ==
PROVIDERS: Emergency Provider Emergency Medicine; PCP Internal Medicine
DX: R07.9 Chest pain, unspecified (principal); Z20.822 Contact with and (suspected) exposure to COVID-19; I10 Essential (primary) hypertension; Z79.899 Other long term (current) drug therapy
CPT/HCPCS: 36415; 71045; 80048; 80076; 83735; 84484; 85025; 87635; 93005; 99283; 99285

== ENCOUNTER 2023-02-13 11:56 | Outpatient (REF) | payer OTHER, SELFPAY ==
[2023-02-15 16:58] LABS: TS Negative Control Passed; TS Panel A 0; TS Panel B 0; TS Positive Control Passed; TSpotTB Negative (Negative)
== END 2023-02-13 11:57 | disposition home or self-care (01) ==
LOC: HO.10HDL 11:56
PROVIDERS: Visit Provider Internal Medicine
DX: Z02.1 Encounter for pre-employment examination (principal)
CPT/HCPCS: 36415; 86481

== ENCOUNTER 2023-02-21 13:51 | Outpatient (AMB) | payer OTHER, SELFPAY ==
[2023-02-21 14:05] VITALS: BP 134/84; PULSE 66; BMI 29.4
--- NOTE | 2023-02-21 14:05 | A.OFFVIS_ITS ---
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 She reports it started when she was at work sitting and started with tingling in her right arm and moved to the chest. No nausea, vomiting, or SOB. Associated symptoms of blurry vision and dizziness. She was not taking her medication for her HTN prior to this and was noted to be hypertensive in the ED. She has since restarted her medications and had no reocurring chest pain. Blood pressure today is just above goal. [facility] Medical History (Updated 02/21/23 @ 14:25 by Meredith Pleitez NP) Hypertension Surgical History History of bilateral fallopian tube excision Family History Father Diabetes Mother HTN (hypertension) Social History Alcohol intake: current Alcohol intake frequency: holidays/special occasions only Patient Tobacco Use Status: Never used Tobacco Review of Systems Const Denies chills, Denies fatigue, Denies fever(s), Denies frequent falls, Denies weakness, Denies weight gain and Denies weight loss ENT Denies dizziness Card Denies chest pain, Denies leg edema, Denies lightheadedness, Denies palpitations, Denies dyspnea, Denies dyspnea on exertion, Denies orthopnea and Denies other (loss of consciousness) Resp Denies cough, Denies dyspnea and Denies dyspnea on exertion GI Denies hematochezia and Denies change in stool character Musc Denies abnormal gait, Denies muscle weakness, Denies numbness, Denies radiating pain into limb and Denies tingling Neuro Denies abnormal gait, Denies dizziness, Denies frequent falls, Denies numbness, Denies tingling and Denies weakness Endo Denies fatigue and Denies palpitations Physical Exam Vital Signs: Last Vital Signs Pulse 66 02/21/23 14:05 BP 134/84 02/21/23 14:05 BMI result Body Mass Index 29.4 Const General: healthy appearing and no acute distress Orientation/consciousness: patient oriented x3 HEENT Head: Yes normal to inspection Eyes General: appearance normal, both eyes and all related structures Neck Neck: Yes normal visual inspection Chest Chest palpation & inspection: normal inspection of the chest Resp Effort & Inspection: normal respiratory effort Auscultation: clear to auscultation bilaterally Cardio Jugular venous distension: no JVD Palpation: normal PMI Rate: regular rate Rhythm: regular rhythm Heart sounds: S1 normal heart sound present, S2 normal heart sound present, no click, no gallops, no murmurs and no rubs GI Inspection: Yes normal to inspection Palpation (GI): Soft to palpation Skin General skin exam: no rashes or lesions noted Neuro General: patient oriented x3 Extrem General: Yes normal to inspection Psych Appearance: grossly normal Assessment & Plan Assessment & Plan (1) Chest pain: Code(s): R07.9 - Chest pain, unspecified (2) Hypertension: Code(s): I10 - Essential (primary) hypertension Plan Blood pressure almost in goal today. Goal of 130 mmHg or less. Avoid salt and encourage heart healthy diet. Exercise stress test to see if chest pain is reproducible. Continue blood pressure monitoring at home and amlodipine 5mg QD. Importance of compliance discussed. Will have her see the doctor in 6 months or sooner if needed. Orders: Orders CA stress test 02/21/23 I10 - Essential (primary) hypertension, R07.9 - Chest pain, unspecified Coding Level of Care Code Est Pt Level 3 (61548) Diagnoses Chest pain R07.9 Hypertension I10
== END 2023-02-21 14:31 | disposition home or self-care (01) ==
PROVIDERS: PCP Internal Medicine; Visit Provider Nurse Practitioner
DX: R07.9 Chest pain, unspecified (principal); I10 Essential (primary) hypertension
CPT/HCPCS: 99213

== ENCOUNTER → 2023-02-21 13:51 | Outpatient (BNVA) | payer OTHER, SELFPAY | PROVIDERS: PCP Internal Medicine; Visit Provider Nurse Practitioner ==

== ENCOUNTER → 2023-03-05 08:26 | Outpatient (REF) | payer OTHER, SELFPAY ==
--- NOTE | 2023-03-05 08:28 | CA_ITS ---
Acquisition Time: 2023-03-05 08:34:29 Total Exercise Time: 00:04:14 Test Indications: CP Medications: AMLODIPINE FAMOTIDINE Protocol: CINDY Max HR: 130 BPM 81% of Pred: 159 BPM Max BP: 150/066 mmHG Max Work Load: 6.0 METS Exercise stress test exercise 4 min 14 sec of Cindy protocol achieving 81% MPHR, with mild SOB, 3/10 left chest prtessure, with normotensive response to exercise, without EKG chnages. Chest poressure improved quickly with rest. Test reviewed with Dr. Donnelly. Referred By: Meredith Pleitez Overread By: Meredith Pleitez
== END ==
LOC: HO.CARD 08:26
PROVIDERS: PCP Internal Medicine; Visit Provider Nurse Practitioner
DX: R07.9 Chest pain, unspecified (principal); I10 Essential (primary) hypertension
CPT/HCPCS: 93017

== ENCOUNTER → 2023-03-05 08:28 | Outpatient (BNV) | payer OTHER, SELFPAY | PROVIDERS: PCP Internal Medicine; Visit Provider Nurse Practitioner | DX: R07.9 Chest pain, unspecified (principal); R06.02 Shortness of breath | CPT/HCPCS: 93016; 93018 ==

== ENCOUNTER → 2023-03-26 07:57 | Outpatient (REF) | payer OTHER, SELFPAY ==
--- NOTE | ~2023-03-26 | NM_ITS ---
Exercise Myocardial perfusion study Indication: Chest tightness with risk factors to evaluate for myocardial ischemia Technique: The patient was brought in for an exercise perfusion study on 03/26/2023. Patient performed exercise as per Reinaldo protocol and was injected 25 mCi of sestamibi was given intravenously one target HR was achieved. Images were obtained using the SPECT gamma camera interlaced with the gating device. Images were obtained in supine position. Resting perfusion study was performed on 03/27/2023. Patient was administered 25 mCi of sestamibi intravenously at rest. Images were then obtained in supine position. Images obtained with and without CT attenuation. Total DLP 98 mGy-cm. Images were processed with the software and compared side to side in short axis, horizontal long axis and vertical long axis views. Findings: The stress perfusion study showed non attenuated images show minimal thinning in the distal lateral wall of the LV myocardium otherwise normal uptake in all segments. Attenuated corrected images show mildly reduced uptake in the apex of the LV myocardium.. The gated study shows normal LV systolic function with calculated LVEF of 70%. LV cavity is normal in size. The gated study shows normal systolic wall thickening and contraction of all segments. There is no transient ischemic dilation. Resting study shows no change in perfusion compared to stress perfusion study. Gating at rest reveals normal systolic wall motion with ejection fraction at 63%. The findings are consistent with normal myocardial perfusion. NM/NM cardiolite stress test Impression: 1. Normal myocardial perfusion 2. Gated LVEF is 70% 3. Transient ischemic dilatation not present Stress EKG is negative for ischemia
--- NOTE | 2023-03-26 07:59 | CA_ITS ---
Acquisition Time: 2023-03-26 08:08:07 Total Exercise Time: 00:08:26 Test Indications: CP, HTN Medications: SEE H Protocol: CINDY Max HR: 144 BPM 90% of Pred: 159 BPM Max BP: 178/068 mmHG Max Work Load: 10.1 METS Exercise stress test exercise 8 min 26 sec of Cindy protocol achieving 88% MPHR, with mild SOB, no chest discomfort, isolated PVC, wuth normotensive response to exercise, without EKG changes. Nuclear images pending. Test reviewed with Dr. Rodriguez. Referred By: Meredith Pleitez Overread By: Meredith Pleitez
== END ==
LOC: HO.CARD 07:57
PROVIDERS: PCP Internal Medicine; Visit Provider Nurse Practitioner
DX: R07.9 Chest pain, unspecified (principal); I10 Essential (primary) hypertension; R94.39 Abnormal result of other cardiovascular function study
CPT/HCPCS: 78452; 93017; A9500

== ENCOUNTER → 2023-03-26 07:59 | Outpatient (BNV) | payer OTHER, SELFPAY | PROVIDERS: PCP Internal Medicine; Visit Provider Nurse Practitioner | DX: R06.02 Shortness of breath (principal); R07.9 Chest pain, unspecified | CPT/HCPCS: 78452; 93016; 93018 ==

== ENCOUNTER 2023-08-30 14:04 | Outpatient (AMB) | payer OTHER, SELFPAY ==
--- NOTE | 2023-08-30 14:14 | A.OFFVIS_ITS ---
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 She underwent a stress test in March for chest pain syndrome which was negative for myocardial ischemia at high workload. Since then she has been doing well with no recurrent chest pain syndrome. Blood pressure remains controlled as less than 130 on current medications. She underwent abdominal ultrasound last year due to family history of abdominal aortic aneurysm in a brother which showed no aneurysm but showed atherosclerotic changes. Last LDL was 124 mg/dL. [facility] Medical History Hypertension Surgical History History of bilateral fallopian tube excision Family History Father Diabetes Mother HTN (hypertension) Social History Alcohol intake: current Alcohol intake frequency: holidays/special occasions only Patient Tobacco Use Status: Never used Tobacco Review of Systems ENT Reports dizziness Card Denies chest pain, Denies chest pain at rest, Denies chest pain with activity, Denies rapid heart rate, Denies pedal edema, Denies edema, Denies leg edema, Denies lightheadedness, Denies palpitations, Denies dyspnea, Denies dyspnea on exertion and Denies orthopnea Resp Denies cough, Denies dyspnea and Denies dyspnea on exertion GI Denies hematochezia and Denies change in stool character Musc Denies abnormal gait, Reports limited range of motion, Reports muscle cramps, Denies muscle weakness, Denies numbness, Denies radiating pain into limb, Denies stiffness and Denies tingling Neuro Denies abnormal gait, Reports dizziness, Denies numbness and Denies tingling Endo Denies palpitations Physical Exam Vital Signs: Last Vital Signs Pulse 72 08/30/23 14:15 BP 124/80 08/30/23 14:15 BMI result Body Mass Index 29.6 Const General: healthy appearing and no acute distress Orientation/consciousness: patient oriented x3 HEENT Head: Yes normal to inspection Eyes General: appearance normal, both eyes and all related structures Neck Neck: Yes normal visual inspection Chest Chest palpation & inspection: normal inspection of the chest Resp Effort & Inspection: normal respiratory effort Auscultation: clear to auscultation bilaterally Cardio Jugular venous distension: no JVD Palpation: normal PMI Rate: regular rate Rhythm: regular rhythm Heart sounds: S1 normal heart sound present, S2 normal heart sound present, no click, no gallops, no murmurs and no rubs GI Inspection: Yes normal to inspection Palpation (GI): Soft to palpation Skin General skin exam: no rashes or lesions noted Neuro General: patient oriented x3 Extrem General: Yes normal to inspection Psych Appearance: grossly normal Assessment & Plan Assessment & Plan (1) Hypertension: Code(s): I10 - Essential (primary) hypertension Category: Medical Plan: Hypertension which is currently well controlled. Continue current amlodipine therapy. She intermittently monitor blood pressure at her work place and has remained stable. Advise low-salt diet. Advised stress mitigation strategies. Continued aggressive blood pressure control was discussed. Will obtain echocardiogram to assess LVH as well as LV systolic and diastolic function. (2) Abdominal aortic atherosclerosis: Code(s): I70.0 - Atherosclerosis of aorta Category: Medical Plan: Abdominal aortic atherosclerosis suggestive of underlying atherosclerotic disease. There is no evidence of aneurysm. However this needs to be treated. LDL is not optimized. Would suggest atorvastatin 20 mg daily with follow-up lipid panel in 3 months time to target goal LDL less than 70 mg/dL. Importance of this was discussed with her. She showed understanding is agreeable to pursue the same. Will follow up in the clinic if need be. Thank you for allowing me to partake in the care Orders: Orders CA echo transthoracic complete Today I10 - Essential (primary) hypertension Lipid Panel 3 Months I70.0 - Atherosclerosis of aorta Medications: New atorvastatin (Lipitor) 20 mg PO DAILY 30 tabs 5RF I70.0 - Atherosclerosis of aorta
[2023-08-30 14:15] VITALS: BP 124/80; PULSE 72; BMI 29.6
== END 2023-08-30 14:31 | disposition home or self-care (01) ==
PROVIDERS: PCP Internal Medicine; Visit Provider Internal Medicine Cardiovascular Disease
DX: I10 Essential (primary) hypertension (principal); I70.0 Atherosclerosis of aorta
CPT/HCPCS: 99214

== ENCOUNTER → 2023-08-30 14:04 | Outpatient (BNVA) | payer OTHER, SELFPAY | PROVIDERS: PCP Internal Medicine; Visit Provider Internal Medicine Cardiovascular Disease ==

== ENCOUNTER 2023-09-04 06:49 | Emergency (ER) | payer OTHER, SELFPAY ==
[2023-09-04 06:55] VITALS: BP 147/87; PULSE 93; RESP 18; TEMP 36.4; O2SAT 100; BMI 29.5
--- NOTE | 2023-09-04 07:11 | ECG_ITS ---
Test Reason : jaw pain / hx of cp Blood Pressure : / mmHG Vent. Rate : 081 BPM Atrial Rate : 081 BPM P-R Int : 130 ms QRS Dur : 064 ms QT Int : 386 ms P-R-T Axes : 073 015 029 degrees QTc Int : 448 ms Normal sinus rhythm Normal ECG When compared with ECG of 08-FEB-2023 08:52, No significant change was found Referred By: Briana Heller Electronically Signed By:RAMSEY BENJAMIN MD
--- NOTE | 2023-09-04 07:22 | ED_ITS ---
HPI - General Adult General Chief complaint: Dental/Oral Stated complaint: jaw pain, went to dentist - not dental related? Time Seen by Provider: 09/04/23 07:22 Source: patient Mode of arrival: ambulatory Limitations: no limitations History of Present Illness HPI narrative: Patient is a 63 year old assigned female at with a history of HTN presenting to the emergency department today with right sided jaw pain. Patient states that over the last 2 days she has had right sided jaw pain. Patient states that she saw her dentist and they stated there was nothing in her mouth causing problems and prescribed her Azithromycin. Patient denies any dizziness, lightheadedness, abdominal pain, nausea, vomiting, fever, chills, blurry vision, double vision, loss of vision, chest pain, difficulty breathing, shortness of breath, back pain, night sweats, pain with urination, increased urinary frequency, increased urinary urgency, blood in her urine or stool, syncope or a near syncopal episode, recent trauma or falls, bowel incontinence, bladder incontinence, bowel retention, bladder retention, or any other complaints at this time. Onset (ago): day(s) (2) Location: face, mouth and right Radiation: non-radiation Severity: mild Severity scale (1-10): 3 Quality: aching and dull Pain Consistency: constant Relieving factors: none Exacerbating factors: none Associated symptoms: denies other symptoms Treatments prior to arrival: other (Azithromycin) Related Data Home Medications ?Medication ?Instructions ?Recorded ?Confirmed amlodipine 5 mg tablet 5 mg PO DAILY 02/21/23 08/30/23 famotidine 20 mg tablet (Pepcid) 20 mg PO BEDTIME 02/21/23 08/30/23 Previous Rx's ?Medication ?Instructions ?Recorded atorvastatin 20 mg tablet (Lipitor) 20 mg PO DAILY #30 tabs 08/30/23 oxycodone 5 mg tablet 5 mg PO Q6H PRN pain #3 tabs 09/04/23 Allergies Allergy/AdvReac Type Severity Reaction Status Date / Time No Known Allergies Allergy Verified 09/04/23 06:57 Review of Systems 2 Constitutional: Constitutional: Reports no additional constitutional complaints, Denies chills, Denies fever(s) and Denies night sweats Eyes: Eyes: Reports no additional eye complaints, Denies blurry vision, Denies change in vision, Denies diplopia, Denies eye discharge, Denies loss of vision and Denies eye pain ENT: Denies dizziness Comments: right sided mouth pain Cardiovascular: Cardiovascular: Reports no additional cardiovascular complaints, Denies chest pain, Denies lightheadedness, Denies Loss of Consciousness and Denies dyspnea Respiratory: Respiratory: Reports no additional respiratory complaints and Denies dyspnea Gastrointestinal: Gastrointestinal: Reports no additional gastrointestinal complaints, Denies abdominal pain, Denies melena, Denies hematochezia, Denies change in bowel habits and Denies change in stool character Genitourinary: Genitourinary: Denies hematuria, Denies urinary frequency, Denies dysuria, Denies urinary incontinence, Denies urinary hesitancy and Denies urinary urgency Musculoskeletal: Musculoskeletal: Reports no additional musculoskeletal complaints, Denies numbness and Denies tingling Neurologic: Denies dizziness, Denies loss of vision, Denies numbness and Denies tingling Psychiatric: Psychiatric: Reports no additional psychiatric complaints Endocrine: Endocrine: Reports no additional endocrine complaints Hematologic/Lymphatic: Hematologic/Lymphatic: Reports no additional hematologic/lymphatic complaints Allergic/Immunologic: Allergic/Immunologic: Reports no additional allergic/immunologic complaints [facility] Past Medical History Attestation statement: The following information was validated with the patient. Source: old records reviewed and nursing notes reviewed Medical History Hypertension Surgical History History of bilateral fallopian tube excision Family History Family History Father Diabetes Mother HTN (hypertension) Social History Social History Alcohol intake: current Alcohol intake frequency: holidays/special occasions only Patient Tobacco Use Status: Never used Tobacco Advance Directives: No Advance Directives Information Provided: Yes Do you have a plan to hurt others: No Plan Physical Exam ED Vital Signs: Vital Signs - 24 hr 09/04/23 06:55 09/04/23 09:15 09/04/23 10:12 Temperature 97.6 F 98.2 F 98.2 F Pulse Rate 93 67 67 Respiratory Rate 18 18 18 Blood Pressure 147/87 H 145/75 H 145/75 H Pulse Oximetry 100 97 97 Oxygen Delivery Method Room Air Room Air Room Air BMI result Body Mass Index 29.5 Const General: cooperative, no acute distress, alert and awake Nutritional Appearance: well nourished Orientation/consciousness: patient oriented x3 Limitations: no limitations HENMT Head: Yes normal to inspection and Yes atraumatic Ears: hearing grossly normal bilaterally and external ears normal General nose exam: Normal external nose present, no nasal discharge noted and no epistaxis Face and sinus: Yes normal facial exam, No abrasion and No laceration Mouth: Normal oral and palatal mucosa present, no drooling and no muffled voice Eyes General: appearance normal, both eyes and all related structures Periorbital: periorbital findings normal Eyelids: Yes eyelids normal Conjunctivae: conjunctivae normal Pupils: Equal, round and reactive pupils present EOM: EOMs intact bilaterally Neck Neck: Yes normal visual inspection, Yes full ROM and Yes no lymphadenopathy Chest Chest palpation & inspection: normal inspection of the chest Resp Effort & Inspection: normal respiratory effort and able to speak in complete sentences GI Inspection: Yes normal to inspection Neuro General: patient oriented x3 and moves all extremities Cranial nerves: Yes Equal, round and reactive pupils present Cognition (Neuro): normal cognition Motor exam (neuro): 5/5 motor strength present throughout Sensory Exam: Normal double simultaneous stimulation for sensation Coordination: [id number] test normal Extrem General: Yes normal to inspection, Yes full ROM and Yes capillary refill normal Psych Appearance: grossly normal Mental Status: mental status grossly normal Affect: normal affect Attitude: cooperative Thought process: Normal thought process present Thought content: Normal thought content present Insight: Good insight present (Psych) Medications Administered Discontinued Medications Generic Name Dose Route Start Last Admin Trade Name Annmarie PRN Reason Stop Dose Admin Ketorolac Tromethamine 15 mg 09/04/23 07:28 09/04/23 07:53 Ketorolac Tromethamine 15 Mg/Ml Vial IM 09/04/23 07:29 15 mg ONCE ONE Administration Medical Decision Making Medical Decision Making [facility] Narrative: Patient is a 63 year old assigned female at with a history of HTN presenting to the emergency department today with right sided jaw pain. Patient's physical exam was unremarkable. Patient's blood work was unremarkable. Patient's EKG was unremarkable. Patient's clinical presentation is most consistent with right TMJ pain / instablility. I explained my physical exam findings as well as all test results to the patient. I answered all questions asked by the patient. I stressed the importance of the patient taking her medication as prescribed. I stressed the importance of the patient following up with her primary care provider. I stressed the importance of the patient returning to the emergency department immediately if her symptoms were to worsen or if she were to develop any dizziness, shortness of breath, difficulty breathing, chest pain, blurry vision, loss of vision, nausea, vomiting, abdominal pain, fever, chills, back pain, or any other complaints. Patient verbalized agreement and understanding with this treatment plan and discharge. Differential Diagnosis Differential Diagnoses: The differential diagnosis associated with the presentation includes TMJ instability TMJ pain Right jaw pain STEMI NSTEMI Admission/Observation Consideration of admission/observation: Escalation of care including admission/observation considered Patient would have been admitted to the hospital had her work up had any findings where hospital admission was appropriate and her clinical presentation warranted hospital admission. Lab Data [facility] Lab Attestation statement: I reviewed the patient's lab results. My interpretation of these results are in the [facility] Rationale portion of this note. 09/04/23 07:24 09/04/23 07:24 Labs: Lab Results 09/04/23 09/04/23 Range/Units 07:24 07:36 WBC 7.3 (4.8-10.8) X10*3/uL RBC 4.79 (4.20-5.50) X10*6/uL Hgb 14.2 (12.0-16.0) g/dl Hct 43.0 (37.0-47.0) % MCV 89.8 (80.0-98.0) fL MCH 29.6 (27.0-33.0) pg MCHC 33.0 (31.0-35.0) g/dl RDW 13.2 (11.0-16.0) % Plt Count 358 (160-400) X10*3/uL MPV 10.2 (9.4-12.3) fL Immature Gran % (Auto) 0.3 (0.0-0.4) % Neut % (Auto) 61.3 (45-73) % Lymph % (Auto) 31.7 (20-40) % Piatt % (Auto) 6.0 (2-11) % Eos % (Auto) 0.4 (0-4) % Baso % (Auto) 0.3 (0-2) % Lymph # (Auto) 2.3 (1.2-4.9) X10*3/uL Piatt # (Auto) 0.4 (0.1-1.2) X10*3/uL Eos # (Auto) 0.0 (0.0-0.4) X10*3/uL Baso # (Auto) 0.0 (0.0-0.2) X10*3/uL Abs Immat Gran (auto) 0.02 (0.00-0.03) X10*3/uL Absolute Neuts (auto) 4.5 (2.0-8.3) x10*3/uL Absolute Nucleated RBC 0.000 (0.0-0.012) X10*3/uL Nucleated RBC % (auto) 0.0 (0.0-0.2) /100WBC Sodium 138 (135-145) mmol/L Potassium 4.1 (3.3-5.1) mmol/L Chloride 108 (96-108) mmol/L Carbon Dioxide 21 L (22-29) mmol/L Anion Gap 13 (12-20) BUN 11 (9-16) mg/dL Creatinine 0.68 (0.5-1.4) mg/dL Estim Creat Clear Calc 71.8 Estimated GFR > 60 Random Glucose 117 H (60-115) mg/dL Calcium 9.6 (8.4-10.2) mg/dL Total Bilirubin 0.9 (0.0-1.0) mg/dL AST 23 (5-31) U/L ALT 19 (0-31) U/L Alkaline Phosphatase 81 (39-117) U/L Troponin I High Sens < 2.7 (<3.5-17.0) ng/L Total Protein 8.1 H (6.5-8.0) g/dL Albumin 4.4 (3.5-5.0) g/dL Influenza Type A (PCR) NEGATIVE (Negative) Influenza Type B (PCR) NEGATIVE (Negative) RSV RNA Qual (PCR) NEGATIVE (Negative) SARS-CoV-2 RNA (RT-PCR) NEGATIVE (Negative) Independent Interpretation I performed an independent interpretation of an: EKG Interpretation: Vent. Rate: 081 BPM Atrial Rate: 081 BPM P-R Int: 130 ms QRS Dur: 064 ms QT Int: 386 ms P-R-T Axes: 073 015 029 degrees QTc Int: 448 ms Normal sinus rhythm Normal ECG When compared with ECG of 08-FEB-2023 08:52, No significant change was found Electronically Signed By:RUFINO DONNELLY MD Dictated By: Rufino Donnelly MD Signed By: Electronically signed by Rufino Donnelly MD 09/04/23 1015 Prescription Management I considered prescription management with: Pain Medication (patient prescribed pain medication for right jaw pain) Chronic Conditions Patient?s care impacted by: Hypertension Discharge Plan Discharge Clinical Impression: Jaw pain Patient Disposition: Home, Self-Care Instructions: Atypical Facial Pain (ED) Additional Instructions: Follow up with your primary care provider. Return to the emergency department immediately if your symptoms worsen or if you develop any dizziness, shortness of breath, difficulty breathing, chest pain, blurry vision, loss of vision, nausea, vomiting, abdominal pain, fever, chills, back pain, or any other complaints. Prescriptions: New oxycodone 5 mg tablet 5 mg PO Q6H PRN (Reason: pain) Qty: 3 0RF Rx Instructions: Partial Fill upon patient request. No Action amlodipine 5 mg tablet 5 mg PO DAILY famotidine [Pepcid] 20 mg tablet 20 mg PO BEDTIME atorvastatin [Lipitor] 20 mg tablet 20 mg PO DAILY Qty: 30 5RF Referrals: Po,Jose De Jesus Croft MD [Primary Care Provider] - Stand Alone Forms: Work/School Release Interventions: ED Discharge Assessment Last Done: 09/04/23 10:12 Discharge Date/Time: 09/04/23 10:14 Print Language: [place]
[2023-09-04 07:28] LABS: MANUAL DIFF FLAG NO
[2023-09-04 07:37] LABS: Basophils Percent Auto 0.3 % (0-2); Eosinophils Percent Auto 0.4 % (0-4); Hemoglobin 14.2 g/dl (12.0-16.0); Imm Gran Abs Auto 0.02 X10*3/uL (0.00-0.03); Imm Gran Pct Auto 0.3 % (0.0-0.4); Lymphocytes Absolute Auto 2.3 X10*3/uL (1.2-4.9); Lymphocytes Percent Auto 31.7 % (20-40); Mean Corpuscular Hemoglobin 29.6 pg (27.0-33.0); Mean Corpuscular Volume 89.8 fL (80.0-98.0); Mean Platelet Volume 10.2 fL (9.4-12.3); Monocytes Absolute Auto 0.4 X10*3/uL (0.1-1.2); Neutrophils Absolute Auto 4.5 x10*3/uL (2.0-8.3); Neutrophils Percent Auto 61.3 % (45-73); Platelet Count 358 X10*3/uL (160-400); Red Blood Count 4.79 X10*6/uL (4.20-5.50); Red Cell Distribution Width 13.2 % (11.0-16.0); White Blood Count 7.3 X10*3/uL (4.8-10.8)
[2023-09-04 07:52] LABS: Alanine Aminotransferase 19 U/L (0-31); Albumin Level 4.4 g/dL (3.5-5.0); Alkaline Phosphatase 81 U/L (39-117); Anion Gap 13 (12-20); Aspartate Amino Transferase 23 U/L (5-31); Bilirubin Total 0.9 mg/dL (0.0-1.0); Blood Urea Nitrogen 11 mg/dL (9-16); Calcium 9.6 mg/dL (8.4-10.2); Carbon Dioxide 21 mmol/L (22-29); Chloride 108 mmol/L (96-108); Creatinine Clr Calc Pharmacy 71.8; Estimated Glomerular Filt Rate > 60; Glucose Random 117 mg/dL (60-115); Potassium 4.1 mmol/L (3.3-5.1); Sodium 138 mmol/L (135-145); Total Protein 8.1 g/dL (6.5-8.0)
[2023-09-04] MEDS: Ketorolac Tromethamine 15 MG/ML VIAL IM (07:53)
[2023-09-04 08:25] LABS: Influenza A PCR NEGATIVE (Negative); Influenza B PCR NEGATIVE (Negative); Resp Syncy Virus RNA Qual PCR NEGATIVE (Negative); SARS COV2 PCR INHOUSE NEGATIVE (Negative)
[2023-09-04 09:15] VITALS: BP 145/75; PULSE 67; RESP 18; TEMP 36.8; O2SAT 97
[2023-09-04 09:34] LABS: Troponin-I High Sensitivity < 2.7 ng/L (<3.5-17.0)
[2023-09-04 10:12] VITALS: BP 145/75; PULSE 67; RESP 18; TEMP 36.8; O2SAT 97
== END 2023-09-04 10:14 | disposition home or self-care (01) ==
PROVIDERS: Physician Assistant Medical; Emergency Provider Emergency Medicine; PCP Internal Medicine
DX: R68.84 Jaw pain (principal); I10 Essential (primary) hypertension; Z03.818 Encounter for observation for suspected exposure to other biological agents ruled out
CPT/HCPCS: 0241U; 36415; 80053; 84484; 85025; 93005; 96372; 99284; J1885

== ENCOUNTER → 2023-09-04 07:11 | Outpatient (BNV) | payer OTHER, SELFPAY | PROVIDERS: Emergency Provider Emergency Medicine; PCP Internal Medicine; Visit Provider Internal Medicine Cardiovascular Disease | DX: R68.84 Jaw pain (principal); I10 Essential (primary) hypertension | CPT/HCPCS: 93010 ==

== ENCOUNTER 2023-09-13 08:06 | Outpatient (REF) | payer OTHER, SELFPAY ==
--- NOTE | ~2023-09-13 | MR_ITS ---
EXAMINATION: MR BRAIN WITHOUT AND WITH CONTRAST CLINICAL INFORMATION: Trigeminal neuralgia COMPARISON: MRI brain on 04/19/2015 TECHNIQUE: Multiplanar, multisequence MRI of the brain was obtained before and after the intravenous administration of 6.5 mL Gadavist. FINDINGS: Ventricles, sulci and cisterns are normal 4 patient's age. Cervical T2 hyperintense nonenhancing focal lesions are seen in bilateral frontal subcortical and deep white matters. No focal brainstem or cerebellar lesions with abnormal signal can be seen. Diffusion weighted images show no abnormal regional decrease in diffusion. Post contrast images show no enhancing cerebral, brainstem or cerebellar lesions. No abnormal meningeal enhancement is seen. High-resolution images show normal symmetrical bilateral trigeminal nerves passing from the baldomero to the Meckel's cave, showing normal signal. No focal trigeminal nerve lesion with abnormal signal or enhancement or extrinsic compression could be seen. The pituitary gland is atrophic. Optic chiasm is not displaced. Cerebellar tonsils position is normal. Bilateral ethmoid sinuses show mild mucosal thickening. MR/MR head/brain wo/w con IMPRESSION: 1. Bilateral frontal white matter lesions are seen, most commonly represent ischemic lesions due to microangiopathy. 2. No acute cerebral infarction is seen. 3. No evidence of space occupying mass lesion could be found. 4. No evidence of intracranial hemorrhage. 5. No evidence of trigeminal neuritis, enhancing tumor or extrinsic compression.
[2023-09-13] MEDS: gadobutroL 7.5 ML VIAL IVPUSH (09:18)
== END 2023-09-13 08:07 | disposition home or self-care (01) ==
LOC: HO.MRI 08:06
PROVIDERS: PCP Internal Medicine; Visit Provider Registered Nurse
DX: G50.0 Trigeminal neuralgia (principal)
CPT/HCPCS: 70553; A9585

== ENCOUNTER → 2023-09-19 08:57 | Outpatient (REF) | payer OTHER, SELFPAY ==
--- NOTE | 2023-09-19 09:02 | CA_ITS ---
Transthoracic Echocardiogram Patient (Last, First, Middle): Carolyn Zepeda M Gender: Female Date of : 1960 Age: 63 Procedure Date: 09/19/2023 Procedure Type: Transthoracic Echocardiogram Location: OP Height: 149.86 cm Weight: 66.23 kg BSA: 1.61 m2 Heart Rate: bpm BP: 122 / 70 mmHg Burlap Spreader: VANITA Referring MD: Rufino Donnelly MD Burlap Worker: Rufino Donnelly MD Symptoms: I10 - Essential (primary) hypertension Study Quality: Adequate ECG Rhythm: Sinus Conclusions: - Normal study Findings Left Ventricle Normal left ventricular size, thickness, and systolic function. The visually estimated ejection fraction is between 65-70%. Diastolic function is normal for age. Peak GLS is -20.1%, within normal limits. Right Ventricle Normal right ventricular cavity size and systolic function. Atria Both atria are normal in size. There is lipomatous hypertrophy of the interatrial septum. There is no evidence of interatrial shunt. Aortic Valve Normal aortic valve structure and function. There is no aortic valve stenosis. There is no aortic valve regurgitation. Mitral Valve Normal mitral valve structure and function. There is trace mitral valve regurgitation. There is no mitral valve stenosis. Pulmonic Valve The pulmonic valve is likely normal. Tricuspid Valve Normal tricuspid valve structure. There is trace tricuspid valve regurgitation. The right ventricular systolic pressure is normal. The right ventricular systolic pressure is 29 mmHg. Normal right atrial pressure. There is no evidence of pulmonary hypertension. Great Vessels All visible segments of the aorta are normal in size. The pulmonary artery was not well visualized. Venous The inferior vena cava is normal in size and collapses greater than 50% with inspiration. Pericardium/Pleural There is no evidence of pericardial effusion. Prior Study Comparison No prior study available for comparison. Measurements 2D Linear Measurements IVSd: 0.99 0.6-0.9/0.6-1.0 cm LVIDd: 4.10 3.9-5.3/4.2-5.9 cm LVIDd Index: 2.55 2.4-3.2/2.2-3.1 cm/m2 LVIDs: 2.34 2.0-3.6 cm LVPWd: 0.85 0.7-1.1 cm LA Diam: 3.20 2.7-3.8/3.0-4.0 cm LAIDs Index: 1.99 1.5-2.3 cm/m2 LV Mass: 145.41 67-162/88-224 g LV Mass Index: 90.32 43-95/49-115 g/m2 LVOT Diam: 1.70 3.0+(-)1.3 cm 2D Systolic Function EF 4C: 65.30 >55% EF 2C: 69.90 >55% EF BiP: 67.20 >55% Mitral Valve MV Pk E: 1.03 MV PK A: 0.79 MV Decel Time: 197.00 E/A: 1.30 E'Lateral: 10.60 E'Medial: 8.59 E/E' Med: 12.00 E/E' Lat: 9.70 PHT: 58.00 MVA PHT: 3.79 Decel Hodgeman: 5.25 Aortic Valve AoV Pk Mike: 1.65 AoV Mn Mike: 1.04 AoV VTI: 0.31 AoV Pk Grad: 11.00 Aov Mn Grad: 5.00 JULIEN Cont.VTI: 1.91 LVOT LVOT Pk Mike: 1.27 LVOT Mn Mike: 0.81 LVOT VTI: 0.26 LVOT Pk Grad: 6.00 LVOT Mn Grad: 3.00 LVOT Diam: 1.70 LVOT Area: 2.27 Diastolic Function MV Pk E: 1.03 MV Pk A: 0.79 E/A: 1.30 E'Medial: 8.59 E/E' Med: 12.00 E' Laterial: 10.60 E/E' Lat: 9.70 Right Ventricle TAPSE (mm): 20.00 TVS' Mike: 16.90 Tricuspid Valve TR Pk Mike: 2.57 TR Pk Grad: 26.00 RA Press: 3.00 RVSP: 29.00 Great Vessels Aorta Sinus of Valsalva: 2.54 2.0-3.[address] Ridge: 2.14 1.7-3.4 cm Ao Asc: 3.00 2.1-3.4 cm Ao Arch: 2.60 Updated in Other Vendor System with Status of Final Rufino Donnelly MD electronically signed on 09/19/2023 3:37:47 PM with status of Final
== END ==
LOC: HO.CARD 08:57
PROVIDERS: PCP Internal Medicine; Visit Provider Internal Medicine Cardiovascular Disease
DX: I10 Essential (primary) hypertension (principal)
CPT/HCPCS: 93306; 93356

== ENCOUNTER → 2023-09-19 09:02 | Outpatient (BNV) | payer OTHER, SELFPAY | PROVIDERS: PCP Internal Medicine; Visit Provider Internal Medicine Cardiovascular Disease | DX: I10 Essential (primary) hypertension (principal) | CPT/HCPCS: 93306; 93356 ==

== ENCOUNTER 2024-02-04 07:03 | Outpatient (REF) | payer OTHER, SELFPAY ==
[2024-02-04 07:22] LABS: MANUAL DIFF FLAG NO
[2024-02-04 07:48] LABS: Basophils Percent Auto 0.3 % (0-2); Eosinophils Absolute Auto 0.1 X10*3/uL (0.0-0.4); Eosinophils Percent Auto 0.8 % (0-4); Hematocrit 42.5 % (37.0-47.0); Hemoglobin 13.8 g/dl (12.0-16.0); Imm Gran Abs Auto 0.02 X10*3/uL (0.00-0.03); Imm Gran Pct Auto 0.3 % (0.0-0.4); Lymphocytes Absolute Auto 2.5 X10*3/uL (1.2-4.9); Lymphocytes Percent Auto 35.1 % (20-40); Mean Corpuscular HGB Conc 32.5 g/dl (31.0-35.0); Mean Corpuscular Hemoglobin 30.2 pg (27.0-33.0); Mean Platelet Volume 10.4 fL (9.4-12.3); Monocytes Absolute Auto 0.4 X10*3/uL (0.1-1.2); Monocytes Percent Auto 6.1 % (2-11); Neutrophils Absolute Auto 4.1 x10*3/uL (2.0-8.3); Neutrophils Percent Auto 57.4 % (45-73); Platelet Count 338 X10*3/uL (160-400); Red Blood Count 4.57 X10*6/uL (4.20-5.50); Red Cell Distribution Width 12.6 % (11.0-16.0); White Blood Count 7.1 X10*3/uL (4.8-10.8)
[2024-02-04 08:15] LABS: Alanine Aminotransferase 15 U/L (0-31); Albumin Level 4.3 g/dL (3.5-5.0); Alkaline Phosphatase 79 U/L (39-117); Anion Gap 12 (12-20); Aspartate Amino Transferase 14 U/L (5-31); Bilirubin Total 0.7 mg/dL (0.0-1.0); Blood Urea Nitrogen 17 mg/dL (9-16); Calcium 9.4 mg/dL (8.4-10.2); Carbon Dioxide 27 mmol/L (22-29); Chloride 107 mmol/L (96-108); Cholesterol 209 mg/dL (<200); Estimated Glomerular Filt Rate > 60; Glucose Fasting 110 mg/dL (60-99); HDL Cholesterol 44 mg/dL (>40); LDL Cholesterol Calculated 133 mg/dL (<100); Potassium 4.6 mmol/L (3.3-5.1); Sodium 141 mmol/L (135-145); Total Protein 7.5 g/dL (6.5-8.0); Triglycerides 161 mg/dL (<150)
[2024-02-04 08:39] LABS: Thyroid Stimulating Hormone 4.25 uIU/mL (0.32-4.0); Vitamin D 25-OH Total 24.2 ng/mL (>30)
== END 2024-02-04 07:04 | disposition home or self-care (01) ==
LOC: HO.LAB 07:03
PROVIDERS: PCP Internal Medicine; Visit Provider Internal Medicine
DX: I10 Essential (primary) hypertension (principal); R00.2 Palpitations
CPT/HCPCS: 36415; 80053; 80061; 82306; 84443; 85025

== ENCOUNTER 2024-05-29 08:37 | Outpatient (AMB) | payer MEDICAID, SELFPAY ==
--- NOTE | 2024-05-29 08:41 | A.OFFVIS_ITS ---
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 She is doing well with no digital product manager concerns. Currently not sexually active. Denies any vaginal dryness or irritation. STI testing offered; she declined. Attempting to eat a healthy diet with calcium and vitamin D and stays active with exercise. Last pap smear; 2018. Last mammogram; 2021. Colonoscopy is UTD. Denies any family history of breast or ovarian. FH colon cancer. [facility] Medical History Hypertension Surgical History History of bilateral fallopian tube excision Family History (Updated 05/29/24 @ 08:46 by SONJA Cabral) Father Diabetes Prostate cancer Mother HTN (hypertension) Maternal Uncle Colon cancer Social History (Updated 05/29/24 @ 08:47 by SONJA Cabral) Alcohol intake: current Alcohol intake frequency: holidays/special occasions only Patient Tobacco Use Status: Never used Tobacco Sexually active: No Female Reproductive History Menstrual control method: permanent sterilization Permanent Sterilization: BTL Menopause type: natural Total pregnancies: 3 Full term: 2 Number of Living Children: 2 Ab spontaneous: 1 Date of last pap smear: 04/26/21 (neg) Date of Mammogram: 07/06/21 (Birad 2) Review of Systems Const All systems reviewed & are unremarkable except as noted in HPI and below Reports as per HPI Eyes Reports no additional complaints ENT Reports no additional complaints Card Reports no additional complaints Resp Reports no additional complaints GI Reports as per HPI and Reports no additional complaints Reports as per HPI Musc Reports no additional complaints Skin/Breast Reports as per HPI Neuro Reports no additional complaints Psych Reports no additional complaints Endo Reports no additional complaints Lucio/Lymph Reports no additional complaints Aller/Immun Reports no additional complaints Physical Exam Vital Signs: Last Vital Signs BP 124/80 05/29/24 08:44 BMI result Body Mass Index 29.1 Const General: cooperative, healthy appearing, no acute distress, well developed and alert Orientation/consciousness: patient oriented x3 HEENT Head: Yes normal to inspection Eyes General: appearance normal, both eyes and all related structures Neck Neck: Yes normal visual inspection Thyroid: Thyroid normal Chest Chest palpation & inspection: normal inspection of the chest and other (no puckering, dimpling, peau de orange, retraction, discharge, masses) Breast/axilla inspection: normal inspection of the breasts Breast/axilla palpation: normal palpation of the breasts Resp Effort & Inspection: normal respiratory effort GI Inspection: Yes normal to inspection Palpation (GI): Soft to palpation Rectal Exam - Female: deferred General: Yes bladder normal to palpation External Female Exam: normal external appearance and normal appearance of the urethra Speculum Exam - Vagina: normal appearance of the vagina, normal palpation, normal vaginal discharge and vagina atrophic Speculum Exam - Cervix: normal appearance of the cervix, normal palpation and Other cervical findings present (Atrophic changes bled with Pap) Bimanual exam- vagina & uterus: normal bimanual exam, normal palpation, uterine size normal, bladder normal to palpation, normal palpation and non-tender Bimanual Exam- Adnexa, other: no masses Skin General skin exam: no rashes or lesions noted Rashes: no rashes Neuro General: patient oriented x3 Cognition (Neuro): normal cognition Extrem General: Yes normal to inspection Psych Attitude: cooperative Thought process: Normal thought process present Assessment & Plan Assessment & Plan (1) Encounter for well woman exam with routine gynecological exam: Code(s): Z01.419 - Encounter for gynecological examination (general) (routine) without abnormal findings Category: Medical Plan Discussed: Current recommendations for pap smears per ASCCP guidelines. Pap smear obtained. Breast awareness, periodic self breast exams and yearly mammogram. Mammogram ordered. Maintain a healthy lifestyle, well balanced diet including Calcium 1,200 mg and Vitamin D 600 IU daily, and routine exercise. Contact the office with any postmenopausal bleeding. Patient verbalizes understanding and agrees to the plan of care. She was given opportunity to ask questions and all questions were answered to the best of my ability. RTO in 1 year for annual digital product manager exam. This note is constructed using voice recognition software. While every effort has been made to ensure accuracy, ultrasound manager errors may have been included. Orders: Orders MM tomosynthesis screening BI Today Z12.31 - Encounter for screening mammogram for malignant neoplasm of breast HPV High risk Today Z01.419 - Encounter for gynecological examination (general) (routine) without abnormal findings Pap Smear Today Z01.419 - Encounter for gynecological examination (general) (routine) without abnormal findings Coding Level of Care Code New Pt Prev Care 40-64y(88040) Diagnoses Encounter for well woman exam with routine gynecological exam Z01.419
[2024-05-29 08:44] VITALS: BP 124/80; BMI 29.1
== END 2024-05-29 09:11 | disposition home or self-care (01) ==
PROVIDERS: PCP Internal Medicine; Visit Provider Advanced Practice Midwife
DX: Z01.419 Encounter for gynecological examination (general) (routine) without abnormal findings (principal)
CPT/HCPCS: 99386

== ENCOUNTER 2024-05-29 08:37 | Outpatient (REF) | payer MEDICAID, SELFPAY ==
[2024-05-30 09:44] LABS: HPV 16,18/45 See PAP report
== END 2024-05-29 08:38 | disposition home or self-care (01) ==
LOC: HO.LNP 08:37
PROVIDERS: PCP Internal Medicine; Visit Provider Advanced Practice Midwife
DX: Z01.419 Encounter for gynecological examination (general) (routine) without abnormal findings (principal)
CPT/HCPCS: 87626; 88175; 99386; 99459

== ENCOUNTER 2024-06-02 15:25 | Emergency (ER) | payer MEDICAID, SELFPAY ==
--- NOTE | ~2024-06-02 | XR_ITS ---
EXAMINATION: XR CHEST CLINICAL INFORMATION: congestion cough for 10 days COMPARISON: None available. TECHNIQUE: 2 views of the chest were obtained. FINDINGS: The lungs are well-expanded and clear acute process. The heart size and pulmonary vascularity is normal. Mild dextroscoliosis of dorsal spine. No aggressive lytic or sclerotic process seen. XR/XR chest 2V IMPRESSION: Unremarkable chest examination. Electronically signed by: Waldemar Rodríguez MD 06/02/2024 04:25 PM EST
[2024-06-02 15:52] VITALS: BP 187/76; PULSE 78; RESP 18; TEMP 36.8; O2SAT 98; BMI 29.6
[2024-06-02 17:03] LABS: Influenza A PCR NEGATIVE (Negative); Influenza B PCR NEGATIVE (Negative); Resp Syncy Virus RNA Qual PCR POSITIVE (Negative); SARS COV2 PCR INHOUSE NEGATIVE (Negative)
--- NOTE | 2024-06-02 18:42 | ED.GENADULT ---
HPI - General Adult General Chief complaint: Upper Respiratory Symptoms Stated complaint: Cough Time Seen by Provider: 06/02/24 18:53 Source: patient and RN notes reviewed Mode of arrival: ambulatory Limitations: no limitations History of Present Illness ED Provider: Susie Fontanez PA-C HPI narrative: This is a 64-year-old female, with a history of hypertension, who presents emergency department with complaints of cough, productive with yellow sputum, and congestion for the last 10 days. She denies any fevers, chills, chest pain, shortness of breath, abdominal pain, nausea, vomiting or diarrhea. Denies any sick contacts. She has been taking Robitussin DM which has provided her with minimal relief. She has been compliant with her blood pressure medication. No other complaints or concerns at this time. MD complaint: Cough, congestion Onset (ago): day(s) Radiation: non-radiation Quality: aching Pain Consistency: constant Relieving factors: none Exacerbating factors: none Associated symptoms: cough Treatments prior to arrival: none Related Data Home Medications ?Medication ?Instructions ?Recorded ?Confirmed amlodipine 5 mg tablet 5 mg PO DAILY 02/21/23 08/30/23 famotidine 20 mg tablet (Pepcid) 20 mg PO BEDTIME 02/21/23 08/30/23 Previous Rx's ?Medication ?Instructions ?Recorded atorvastatin 20 mg tablet (Lipitor) 20 mg PO DAILY #30 tabs 08/30/23 oxycodone 5 mg tablet 5 mg PO Q6H PRN pain #3 tabs 09/04/23 azithromycin 250 mg tablet See Rx Instructions PO .COMPLEX #6 06/02/24 tabs benzonatate 100 mg capsule 100 mg PO TID #12 caps 06/02/24 Allergies Allergy/AdvReac Type Severity Reaction Status Date / Time environmental allergies Allergy Unknown Unknown Verified 06/02/24 15:55 Review of Systems Review of Systems: Yes all other systems are reviewed and are negative Constitutional: Constitutional: Reports as per [facility] Past Medical History Medical History Hypertension Surgical History History of bilateral fallopian tube excision Family History Family History (Updated 05/29/24 @ 08:46 by Niesha M Mendrala, RMA) Father Diabetes Prostate cancer Mother HTN (hypertension) Maternal Uncle Colon cancer Social History Social History (Updated 05/29/24 @ 08:47 by SONJA Cabral) Alcohol intake: current Alcohol intake frequency: holidays/special occasions only Patient Tobacco Use Status: Never used Tobacco Advance Directives: No Advance Directives Information Provided: No Do you have a plan to hurt others: No Plan Physical Exam ED Vital Signs: Vital Signs - 24 hr 06/02/24 15:52 06/02/24 18:44 06/02/24 18:58 Temperature 98.2 F 97.3 F Pulse Rate 78 81 81 Respiratory Rate 18 18 18 Blood Pressure 187/76 H 166/86 H 166/86 H Pulse Oximetry 98 95 95 Oxygen Delivery Method Room Air Room Air Room Air BMI result Body Mass Index 29.6 Const General: cooperative, comfortable and no acute distress Orientation/consciousness: patient oriented x3 Limitations: no limitations HENMT Head: Yes normal to inspection, Yes normocephalic and Yes atraumatic Ears: hearing grossly normal bilaterally General nose exam: Normal external nose present Face and sinus: Yes normal facial exam Mouth: Normal oral and palatal mucosa present, oropharynx normal and moist mucous membranes Throat: Yes posterior oropharynx normal Eyes General: appearance normal, both eyes and all related structures Eyelids: Yes eyelids normal Conjunctivae: conjunctivae normal Sclerae: sclerae normal Pupils: Equal, round and reactive pupils present EOM: EOMs intact bilaterally Neck Neck: Yes normal visual inspection, Yes full ROM and Yes no lymphadenopathy Lymphatic: no lymphadenopathy noted Chest Chest palpation & inspection: normal inspection of the chest Resp Effort & Inspection: normal respiratory effort and able to speak in complete sentences Auscultation: clear to auscultation bilaterally, no crackles, no rales, no rhonchi and no wheezes Cardio Rate: regular rate Rhythm: regular rhythm Heart sounds: S1 normal heart sound present and S2 normal heart sound present GI Inspection: Yes normal to inspection Skin General skin exam: no rashes or lesions noted Trauma: no lacerations or abrasions Wounds: no wounds Neuro General: patient oriented x3 and moves all extremities Cranial nerves: Yes Equal, round and reactive pupils present Extrem General: Yes normal to inspection Right upper extremity: normal to inspection Left upper extremity: normal to inspection Right lower extremity: normal to inspection Left lower extremity: normal to inspection Medical Decision Making Medical Decision Making MDM Narrative: This is a 64-year-old female who presents emergency department with complaints of coughing congestion. On arrival, blood pressure mildly elevated at 187/76. She has no dizziness, headaches, blurred vision, chest pain, shortness of breath. She has been sick for the last 10 days. She has been taking drot-xwr-[id number] Robitussin without any relief. No fevers. Lungs are clear to auscultation bilaterally. Normal exam. She tested positive for RSV. Advised patient to discontinue using [id number]-[id number] cold and flu medication as this is likely increasing her blood pressure. Patient discharged on azithromycin as she has been sick for nearly 2 weeks. Chest x-ray performed which revealed no pneumonia. Patient discharged with strict return precautions. Patient stable for discharge Differential Diagnosis Differential Diagnoses: The differential diagnosis associated with the presentation includes RSV, URI, pneumonia, bronchitis Lab Data [facility] Lab Attestation statement: I reviewed the patient's lab results. Positive RSV Labs: Lab Results 06/02/24 Range/Units 16:05 Influenza Type A (PCR) NEGATIVE (Negative) Influenza Type B (PCR) NEGATIVE (Negative) RSV RNA Qual (PCR) POSITIVE A (Negative) SARS-CoV-2 RNA (RT-PCR) NEGATIVE (Negative) Radiology Impression Discussion of test interpretation with radiology: I have reviewed the radiologist's reading. Radiologist Impression: [place] [id number] XRay Report Signed Patient: Carolyn Zepeda MR#: [id number] : 1960 Acct:[id number] Age/Sex: 64 / F ADM Date: 06/02/24 Loc: .ED Attending Dr: Ordering Physician: Generic ED Physician Date of Service: 06/02/24 Procedure(s): XR chest 2V Accession Number(s): [id number] cc: Chris Warner MD; Generic ED Physician~ EXAMINATION: XR CHEST CLINICAL INFORMATION: congestion cough for 10 days COMPARISON: None available. TECHNIQUE: 2 views of the chest were obtained. FINDINGS: The lungs are well-expanded and clear acute process. The heart size and pulmonary vascularity is normal. Mild dextroscoliosis of dorsal spine. No aggressive lytic or sclerotic process seen. XR/XR chest 2V IMPRESSION: Unremarkable chest examination. Electronically signed by: Waldemar Rodríguez MD 06/02/2024 04:25 PM [facility] [place] Dictated By: Waldemar Rodríguez MD Discharge Plan Discharge Clinical Impression: Respiratory syncytial virus (RSV) Patient Disposition: Home, Self-Care Instructions: Respiratory Syncytial Virus (ED) Additional Instructions: You were seen in the emergency department due to cough and congestion. Given you have been sick for longer than 10 days, we are starting you on antibiotics. Please take full course even if you are feeling better. Drink plenty of fluids and get plenty of rest. If any new or worsening symptoms occur including but not limited to chest pain or shortness of breath, please seek emergent care. Your blood pressure was elevated, please follow-up with your primary care physician. Prescriptions: New azithromycin 250 mg tablet See Rx Instructions .ROUTE .COMPLEX Qty: 6 0RF Rx Instructions: For 250 mg dose pack: take 500 mg today (day 1), then 250 mg for 4 days (days 2-5) benzonatate 100 mg capsule 100 mg PO TID Qty: 12 0RF No Action oxycodone 5 mg tablet 5 mg PO Q6H PRN (Reason: pain) Qty: 3 0RF Rx Instructions: Partial Fill upon patient request. amlodipine 5 mg tablet 5 mg PO DAILY famotidine [Pepcid] 20 mg tablet 20 mg PO BEDTIME atorvastatin [Lipitor] 20 mg tablet 20 mg PO DAILY Qty: 30 5RF Interventions: ED Discharge Assessment Last Done: 06/02/24 18:58 Discharge Date/Time: 06/02/24 18:58 Print Language: [place]an
[2024-06-02 18:44] VITALS: BP 166/86; PULSE 81; RESP 18; O2SAT 95
[2024-06-02 18:58] VITALS: BP 166/86; PULSE 81; RESP 18; TEMP 36.3; O2SAT 95
== END 2024-06-02 18:58 | disposition home or self-care (01) ==
PROVIDERS: Emergency Provider Emergency Medicine Emergency Medical Services; PCP Internal Medicine
DX: R05.9 Cough, unspecified (principal); B97.4 Respiratory syncytial virus as the cause of diseases classified elsewhere; R09.89 Other specified symptoms and signs involving the circulatory and respiratory systems; I10 Essential (primary) hypertension; Z03.818 Encounter for observation for suspected exposure to other biological agents ruled out
CPT/HCPCS: 0241U; 71046; 99282; 99283

== ENCOUNTER → 2024-06-02 15:56 | Outpatient (BNV) | payer MEDICAID, SELFPAY | PROVIDERS: PCP Internal Medicine; Visit Provider Radiology Diagnostic Radiology | DX: R05.9 Cough, unspecified (principal) | CPT/HCPCS: 71046 ==

== ENCOUNTER 2024-07-16 07:21 | Outpatient (REF) | payer MEDICAID, SELFPAY ==
--- NOTE | ~2024-07-16 | MM_ITS ---
EXAMINATION: MM SCREENING DIGITAL BREAST TOMOSYNTHESIS, BILATERAL CLINICAL INFORMATION: Screening. Asymptomatic. COMPARISON: Mammography: Comparison is made with available priors TECHNIQUE: Digital breast mammography with tomosynthesis is performed in both the craniocaudal and mediolateral oblique views along with computer-aided detection (CAD). FINDINGS: There are scattered areas of fibroglandular density (ACR BI-RADS breast composition Category b). Left: Asymmetry superior breast middle depth on MLO view. No suspicious calcifications or other abnormal findings. Right: There are no significant masses, abnormal calcifications, or other abnormalities. MM/MM tomosynthesis screening BI IMPRESSION: Additional imaging is recommended ASSESSMENT: BI-RADS BI-RADS 0 - Incomplete: Needs additional Imaging. RECOMMENDATION: 1. Additional views of the left breast. 2. Targeted ultrasound if warranted after review of the additional views. 3. Radiology department staff will contact the patient for additional imaging. Additional Imaging required This examination should not preclude the clinical evaluation of a suspicious palpable abnormality. This patient's information was entered into a reminder system with a target due date for their next mammogram. Electronically signed by: Octavia Barber DO 07/17/2024 11:40 AM PABLO
== END 2024-07-16 07:22 | disposition home or self-care (01) ==
LOC: HO.MAMMO 07:21
PROVIDERS: PCP Internal Medicine; Visit Provider Advanced Practice Midwife
DX: Z12.31 Encounter for screening mammogram for malignant neoplasm of breast (principal)
CPT/HCPCS: 77063; 77067

== ENCOUNTER → 2024-07-16 07:30 | Outpatient (BNV) | payer MEDICAID, SELFPAY | PROVIDERS: PCP Internal Medicine; Visit Provider Internal Medicine | DX: Z12.31 Encounter for screening mammogram for malignant neoplasm of breast (principal) | CPT/HCPCS: 77063; 77067 ==

== ENCOUNTER 2024-08-11 | Outpatient (REF) | payer OTHER, SELFPAY ==
--- NOTE | ~2024-08-11 | US_ITS ---
EXAMINATION: MM DIAGNOSTIC DIGITAL BREAST TOMOSYNTHESIS, LEFT Limited left breast ultrasound. CLINICAL INFORMATION: Clinical screening for asymmetry in the left breast on MLO view. COMPARISON: Mammography: Priors on PACS. TECHNIQUE: Digital breast tomosynthesis is performed in both the craniocaudal and mediolateral oblique views along with computer-aided detection (CAD). Synthesized 2D images are generated from the tomosynthesis. FINDINGS: The breasts are heterogeneously dense, which may obscure small masses (ACR BI-RADS breast composition Category c). Asymmetry superior left breast middle depth on MLO view persists on additional imaging projections. No suspicious calcifications or other abnormal findings. Targeted color Doppler ultrasound scanning from 10-1 o'clock demonstrates an incidental hypoechoic oval circumscribed solid mass at 1:00 3 cm from nipple measuring 16 x 12 x 17 mm. There is internal vascular flow. Otherwise scanning from 10-1 o'clock demonstrates normal fibronodular breast tissue. US/US breast LT limited mamm only IMPRESSION: 1. Hypoechoic solid mass at 1:00 recent meters from the nipple on ultrasound. Recommend ultrasound-guided core needle biopsy at this time. The findings and recommendations were discussed with the patient the procedure will be scheduled. 2. Asymmetry superior left breast middle depth on MLO view without sonographic correlate. Recommend 6 month follow-up mammogram for further evaluation of stability. ASSESSMENT: BI-RADS BI-RADS 4 - Suspicious finding RECOMMENDATION: Biopsy recommended Results were provided to the patient at time of visit by the technologist. This patient's information was entered into a reminder system with a target due date for their next mammogram. Electronically signed by: Octavia Barber DO 08/11/2024 10:15 AM EDT
== END 2024-08-11 00:01 | disposition home or self-care (01) ==
LOC: HO.MAMMO
PROVIDERS: Absent Provider Advanced Practice Midwife; PCP Internal Medicine; Visit Provider Internal Medicine
DX: N64.89 Other specified disorders of breast (principal)
CPT/HCPCS: 76642; 77061; 77065

== ENCOUNTER → 2024-08-11 09:00 | Outpatient (BNV) | payer OTHER, SELFPAY | PROVIDERS: Absent Provider Advanced Practice Midwife; PCP Internal Medicine; Visit Provider Internal Medicine | DX: N63.21 Unspecified lump in the left breast, upper outer quadrant (principal) | CPT/HCPCS: 76642; 77061; 77065 ==

== ENCOUNTER 2024-08-13 07:44 | Outpatient (AMB) | payer OTHER, SELFPAY ==
--- NOTE | 2024-08-13 07:52 | MHC.OFFVIS ---
Intake Visit Reasons: US biopsy left breast 1 o'clock mass Intake Note: Patient referred for US bx lt br 1o'clock mass. Patient c/o: no concerns. Denies pain, nipple discharge. Sister recently diagnosed with breast CA. Undergoing chemo. BX scheduled 08-14-24 @ 10am Academic Affairs Assistant Required: No Accompanied by: Self / Same As Patient Allergies environmental allergies Allergy (Unknown, Verified 08/13/24 07:52) Unknown HPI Comments Details: Patient presents here status post screening mammography were suspicious left breast lesion was demonstrated. This was confirmed sonographically. She is tentatively scheduled for ultrasound-guided biopsy tomorrow. Patient was self has no breast issues or complaints. She does occasional breast exams. This was picked up on mammographic studies. She denies any breast pain, skin changes, or masses. Family history younger sister with a recently diagnosed breast cancer. Menstrual history noncontributory Chart was reviewed and patient evaluated [facility] Medical History Hypertension Surgical History History of bilateral fallopian tube excision Family History (Updated 05/29/24 @ 08:46 by SONJA Cabral) Father Diabetes Prostate cancer Mother HTN (hypertension) Maternal Uncle Colon cancer Social History (Updated 05/29/24 @ 08:47 by SONJA Cabral) Alcohol intake: current Alcohol intake frequency: holidays/special occasions only Patient Tobacco Use Status: Never used Tobacco Physical Exam Chest Other: Chest breath sounds bilaterally. Bilateral breast exam demonstrates no obvious mass, skin changes, discharge from nipple, or any periclavicular or axillary adenopathy. GI Other: Abdomen moderately corpulent, soft, benign Assessment & Plan Assessment & Plan (1) Left breast mass: Code(s): N63.20 - Unspecified lump in the left breast, unspecified quadrant Category: Surgical Plan As noted above, patient was scheduled for ultrasound-guided biopsy left breast lesion tomorrow. She will see me in few days later to review of the pathology results. All questions answered. Coding Level of Care Code New Pt Level 4 (17286) Diagnoses Left breast mass N63.20
== END 2024-08-13 08:12 | disposition home or self-care (01) ==
LOC: HO.HGS 07:45
PROVIDERS: PCP Internal Medicine; Visit Provider Surgery
DX: N63.20 Unspecified lump in the left breast, unspecified quadrant (principal)
CPT/HCPCS: 99204

== ENCOUNTER → 2024-08-13 07:44 | Outpatient (BNVA) | payer OTHER, SELFPAY | PROVIDERS: PCP Internal Medicine; Visit Provider Surgery | DX: N63.21 Unspecified lump in the left breast, upper outer quadrant (principal) | CPT/HCPCS: 99202 ==

== ENCOUNTER 2024-08-14 09:40 | Outpatient (REF) | payer OTHER, SELFPAY ==
--- NOTE | ~2024-08-14 | MM_ITS ---
PROCEDURE: ULTRASOUND-GUIDED LEFT BREAST BIOPSY CLINICAL INFORMATION: Solid mass at 1:00. COMPARISON: Priors on PACS. TECHNIQUE: The details of the procedure, as well as the risks, benefits, and alternatives to the procedure were explained to the patient in detail and all of her questions were answered, after which, written informed consent was obtained. PROCEDURE: Prior to the procedure, sonography revealed solid mass at 1:00 2 cm from the nipple. A time-out was performed, the lesion intended for biopsy was targeted and the skin of the left breast was then prepped and draped in the usual sterile fashion. Using sonographic guidance, sterile technique, and 1% lidocaine without epinephrine for local anesthesia, a total of 4 cores were obtained through the targeted area with a 14-gauge biopsy device. At the completion of tissue sampling, a single coil metallic clip was deposited at the biopsy site. An appropriate sample was obtained. The postprocedure 2-view direct digital mammogram reveals satisfactory positioning of the biopsy clip. The patient tolerated the procedure well and, after assuring adequate hemostasis, was discharged in good condition after reviewing postbiopsy breast care instructions. Final pathology results are pending. MM/MM tomosynthesis diagnostic LT IMPRESSION: 1. Uncomplicated sonographically-guided core biopsy of the left breast. The 2-view direct digital postprocedure mammogram reveals satisfactory positioning of the biopsy clip. 2. Final pathology results are pending. A separate report with final recommendations will be issued once these results are made available. Electronically signed by: Octavia Barber DO 08/14/2024 11:07 AM EDT
[2024-08-14] MEDS: Lidocaine HCl 1 % 20 ML VIAL 9 ML SUBCUT (10:56)
[2024-08-14] MEDS: Sodium Bicarbonate 8.4% 50 MEQ/50 ML VIAL SUBCUT (10:56)
== END 2024-08-14 09:41 | disposition home or self-care (01) ==
LOC: HO.MAMMO 09:40
PROVIDERS: PCP Internal Medicine; Referring Provider Advanced Practice Midwife; Visit Provider Surgery
DX: N63.21 Unspecified lump in the left breast, upper outer quadrant (principal); D24.2 Benign neoplasm of left breast
CPT/HCPCS: 19083; 77061; 77065; 88305; A4648; C1894; J2003

== ENCOUNTER → 2024-08-14 10:00 | Outpatient (BNV) | payer OTHER, SELFPAY | PROVIDERS: PCP Internal Medicine; Referring Provider Advanced Practice Midwife; Visit Provider Internal Medicine | DX: N63.21 Unspecified lump in the left breast, upper outer quadrant (principal) | CPT/HCPCS: 19083; 77065 ==

== ENCOUNTER 2024-08-25 10:45 | Outpatient (AMB) | payer OTHER, SELFPAY ==
--- NOTE | 2024-08-25 10:47 | A.OFFVIS_ITS ---
Vital Signs 08/25/24 10:52 Height 4 ft 11 in Weight 147 lb BMI 29.7 BP 147/78 H Blood Pressure Location Rt brachial Position Sitting Pulse 80 Intake Visit Reasons: 1wk lt ux bx Intake Note: Patient here for 1wk follow up Lt br ndl core bx on 08-14-2024. Reports bx site healing well. Patient c/o: no concerns. Spa Assistant Manager Required: No Accompanied by: Self / Same As Patient Allergies environmental allergies Allergy (Unknown, Verified 08/25/24 10:51) Unknown Medication List - Last Reconciled 08/25/24 by Kenneth Pratt MD amlodipine 5 mg PO DAILY atorvastatin (Lipitor) 20 mg PO DAILY benzonatate 100 mg PO TID famotidine (Pepcid) 20 mg PO BEDTIME HPI Comments Details: Patient was for follow-up status post left breast mass biopsy. Pathology demonstrates fibroadenoma. Patient has no post biopsy issues or complaints. REPLACED BY [facility] Medical History Hypertension Surgical History History of bilateral fallopian tube excision Family History (Updated 05/29/24 @ 08:46 by SONJA Cabral) Father Diabetes Prostate cancer Mother HTN (hypertension) Maternal Uncle Colon cancer Social History (Updated 05/29/24 @ 08:47 by SONJA Cabral) Alcohol intake: current Alcohol intake frequency: holidays/special occasions only Patient Tobacco Use Status: Never used Tobacco Physical Exam Vital Signs: Last Vital Signs Pulse 80 08/25/24 10:52 BP 147/78 H 08/25/24 10:52 BMI result Body Mass Index 29.7 Chest Other: Biopsy site mild ecchymosis but otherwise healing well. Assessment & Plan Assessment & Plan (1) Fibroadenoma of left breast: Code(s): D24.2 - Benign neoplasm of left breast Category: Surgical Plan: Current plan is to arrange for bilateral six-month mammogram and if all goes well convert the patient to annual mammography. She is encouraged to do self- exams in the meantime. She will see me in 6 months time status post mammograms or p.r.n.. All questions answered. Orders: Orders MM diagnostic mammo BI 6 Months D24.2 - Benign neoplasm of left breast Coding Level of Care Code Est Pt Level 4 (57222) Diagnoses Fibroadenoma of left breast D24.2
[2024-08-25 10:52] VITALS: BP 147/78; PULSE 80; BMI 29.7
== END 2024-08-25 10:59 | disposition home or self-care (01) ==
LOC: HO.HGS 10:45
PROVIDERS: PCP Internal Medicine; Visit Provider Surgery
DX: D24.2 Benign neoplasm of left breast (principal)
CPT/HCPCS: 99214

== ENCOUNTER → 2024-08-25 10:45 | Outpatient (BNVA) | payer OTHER, SELFPAY | PROVIDERS: PCP Internal Medicine; Visit Provider Surgery | DX: D24.2 Benign neoplasm of left breast (principal) | CPT/HCPCS: 99212 ==

== ENCOUNTER 2024-09-13 09:02 | Outpatient (REF) | payer OTHER, SELFPAY ==
[2024-09-13 13:11] LABS: Influenza A PCR NEGATIVE (Negative); Influenza B PCR NEGATIVE (Negative); Resp Syncy Virus RNA Qual PCR NEGATIVE (Negative); SARS COV2 PCR INHOUSE NEGATIVE (Negative)
== END 2024-09-13 09:03 | disposition home or self-care (01) ==
LOC: HO.LNP 09:02
PROVIDERS: PCP Internal Medicine; Visit Provider Physician Assistant Medical
DX: J06.9 Acute upper respiratory infection, unspecified (principal)
CPT/HCPCS: 0241U

== ENCOUNTER 2024-09-13 09:02 | Outpatient (AMB) | payer OTHER, SELFPAY ==
[2024-09-13 09:11] VITALS: BP 142/82; PULSE 82; TEMP 37.3; O2SAT 97; BMI 29.7
--- NOTE | 2024-09-13 09:11 | MHC.OFFWIV ---
Intake Vital Signs 09/13/24 09:11 Height 4 ft 11 in Weight 147 lb BMI 29.7 BP 142/82 H Blood Pressure Location Rt brachial Position Sitting Pulse 82 Pulse Source Pulse Oximeter Temp 99.1 F Temp Source Oral Pulse Oximetry (%) 97 Oxygen Delivery Method Room Air Intake Visit Reasons: EP Cough, runny nose Patient Tobacco Use Status: Never used Tobacco Allergies peanut oil Allergy (Severe, Verified 10/27/24 09:09) Angioedema ibuprofen Allergy (Mild, Verified 10/27/24 08:46) Hives environmental allergies Allergy (Unknown, Verified 10/27/24 08:46) Unknown Do you need a note to return to daycare/school/sports/work: No HPI EP Cough, runny nose HPI Details Patient is a 64-year-old female with hypertension, who comes to the walk-in clinic complaining of runny nose and cough, that started 6 days ago. She reports that she is going on vacation in a week, and is nervous about this worsening. She had a case of RSV last year that she reports she was written antibiotics for, and was hoping that another course of antibiotics would help her now. She denies shortness of breath chest pain, fever or chills, weakness or dizziness, myalgias or malaise, nausea vomiting or diarrhea, fast heart rate or palpitations, sore throat, ear pain, discharge from the ears, trouble swallowing or eating, loss of sense of taste or smell, or other significant associated symptoms. [facility] Medical History (Updated 10/27/24 @ 09:11 by MIRELA Salinas) HLD (hyperlipidemia) Hypertension Surgical History (Updated 10/24/24 @ 11:37 by Kaye Muñoz) History of colonoscopy (~09/08/15) History of bilateral fallopian tube excision Family History Father Diabetes Prostate cancer Mother HTN (hypertension) Maternal Uncle Colon cancer Social History Alcohol intake: current Alcohol intake frequency: holidays/special occasions only Patient Tobacco Use Status: Never used Tobacco Review of Systems Const All systems reviewed & are unremarkable except as noted in HPI and below Physical Exam Vital Signs: Last Vital Signs Temp 99.1 F 09/13/24 09:11 Pulse 82 09/13/24 09:11 BP 142/82 H 09/13/24 09:11 Pulse Ox 97 09/13/24 09:11 Oxygen Delivery Method Room Air 09/13/24 09:11 BMI result Body Mass Index 29.7 Const General: cooperative, healthy appearing, comfortable, no acute distress, alert, awake, Physically active and well groomed; No anxious, diaphoretic, ill appearing, intoxicated appearing, poor hygiene or tired appearing Nutritional Appearance: average body habitus Orientation/consciousness: oriented to person Limitations: no limitations HEENT Head: Yes normal to inspection, Yes normocephalic and Yes atraumatic Ears: hearing grossly normal bilaterally, external ears normal, TM's normal bilaterally and EAC's normal General nose exam: Normal external nose present, Normal nares present, No nasal polyps present, Normal nasal mucous membranes and turbinates present, Normal septum present and No nasal discharge present Face and sinus: Yes normal facial exam, Yes sinuses nontender and Yes face symmetric Mouth: Normal oral and palatal mucosa present, lip normal and tongue normal Throat: Yes posterior oropharynx normal, Yes abnormal tonsil (mildly erythematous bilaterally), No peritonsillar mass, No postnasal drainage, No uvular edema and No cobblestoning Eyes General: appearance normal, both eyes and all related structures Neck Neck: Yes normal visual inspection, Yes full ROM, Yes no lymphadenopathy, Yes trachea midline, Yes supple and No anterior neck swelling Chest Chest palpation & inspection: normal palpation of entire chest wall Resp Effort & Inspection: normal respiratory effort, able to speak in complete sentences, no audible wheezes, Actively coughing (Occasional cough), no grunting, not labored, no nasal flaring, no retractions and symmetric chest movement Auscultation: clear to auscultation bilaterally, no crackles, no rales, no rhonchi, no wheezes, lung sounds not diminished and No rub present Cardio Palpation: normal PMI Rate: regular rate Rhythm: regular rhythm Heart sounds: S1 normal heart sound present and S2 normal heart sound present Skin Other: Good color, warm and dry Neuro General: oriented to person Psych Appearance: grossly normal Mental Status: mental status grossly normal Speech and movement: Normal speech and movement present Affect: normal affect Attitude: cooperative Thought process: Normal thought process present Insight: Good insight present (Psych) Judgement: Good judgement present (Psych) Assessment & Plan Assessment & Plan (1) Upper respiratory infection: Code(s): J06.9 - Acute upper respiratory infection, unspecified Qualifiers: URI type: unspecified viral URI Qualified Code(s): J06.9 - Acute upper respiratory infection, unspecified Plan: Patient is a 64-year-old female with hypertension comes to the walk-in clinic with almost a week of upper respiratory infection symptoms. She reports dry cough, postnasal drip, and rhinitis. Her grandson was sick and they had contact us prior to symptoms starting. No report of cause of grandchild symptoms. Patient had RSV last year and is worried that this is the cause again. She does not report having checked for COVID or flu yet. As her symptoms do seem viral, I tested her for flu COVID and RSV and results are pending. I think she would benefit from benzonatate capsules which I wrote for her today, and patient still requests an antibiotic as she is leaving for vacation next week. I did write her 1, in case her symptoms are worsening while she is away and she can not seek medical attention. However I told her that I do not think they would help her symptoms at this point, and explained to her how antibiotics do not resolve the common cold. However, if it turns out that she has influenza, I could write her for Tamiflu. She understood this, and was in agreement with following up if symptoms persist or worsen while on vacation. She is a former employee of [employer] and knows to go to the emergency department with worrisome symptoms. Orders: Orders SARS-CoV2/FLU/RSV 09/13/24 J06.9 - Acute upper respiratory infection, unspecified Medications: New benzonatate 200 mg PO BID-TID PRN 20 caps 0RF cough azithromycin take 500 mg today (day 1), then 250 mg for 4 days (days 2-5) PO 6 tabs 0RF Coding Level of Care Code Est Pt Level 4 (76227) Diagnoses Viral upper respiratory tract infection J06.9 URI type: unspecified viral URI
== END 2024-09-13 09:51 | disposition home or self-care (01) ==
LOC: HO.HMCWIC 09:02
PROVIDERS: PCP Internal Medicine
DX: J06.9 Acute upper respiratory infection, unspecified (principal)

== ENCOUNTER 2024-10-27 08:34 | Outpatient (AMB) | payer OTHER, SELFPAY ==
--- NOTE | 2024-10-27 08:43 | A.OFFPC_ITS ---
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 Accompanied by: Self / Same As Patient Allergies peanut oil Allergy (Severe, Verified 10/27/24 09:09) Angioedema ibuprofen Allergy (Mild, Verified 10/27/24 08:46) Hives environmental allergies Allergy (Unknown, Verified 10/27/24 08:46) Unknown Medication List - Last Reconciled 10/27/24 by MIRELA Salinas epinephrine (EpiPen 2-Lucas) 0.3 mg (0.3 mL) IM Q10M PRN HPI HPI Comments History of Present Illness Details 64-year-old female with history of hyper tension, hyperlipidemia, and atherosclerosis of the aorta presents to the office today for management of chronic conditions and to establish care. Hypertension-has been taking amlodipine 5 mg daily but stopped this medication as she felt like it was causing her /GI side effects Hyperlipidemia/aortic atherosclerosis-previously following with Dr. Donnelly in Cardiology. No evidence of aortic aneurysm but recommending optimization of ldL. She had been taking atorvastatin 20 mg daily which she discontinued on her own. Goal for LDL less than 70. Last LDL was 33. Concerns: None Health maintenance: Last mammogram [id number] follow-up advised for left breast given history of solid mass with biopsy showing fibroadenoma without any atypia or malignancy. Following with General surgery Last Pap smear 05/30 Last colonoscopy 08/2015 with 10 year follow-up advised. Dr. Perales ROS: General: No fevers, malaise, unintentional weight loss HEENT: No blurred vision, diplopia. No sore throat, nasal congestion, rhinorrhea, sinus pain, ear pain Cardiovascular: No chest pain, palpitations, or leg edema Respiratory: No shortness of breath, wheezing, cough MSK: No myalgia, back pain Neuro: No headaches, weakness, paresthesias Skin: No rashes or lesions EXAM: Constitutional - Awake and Alert, No apparent distress Eyes - PERRL Cardiovascular - S1S2, RRR, No edema Respiratory - Normal lung expansion, Normal respiratory effort, No respiratory distress, CTA bilaterally Extremities - no calf tenderness bilaterally, no swelling Skin - Warm/Dry Neurological - Alert & oriented x3 Psychological - Appropriate affect PFSH Medical History (Updated 10/27/24 @ 09:11 by MIRELA Salinas) HLD (hyperlipidemia) Hypertension Surgical History (Updated 10/24/24 @ 11:37 by Kaye Muñoz) History of colonoscopy (~09/08/15) History of bilateral fallopian tube excision Family History Father Diabetes Prostate cancer Mother HTN (hypertension) Maternal Uncle Colon cancer Social History Alcohol intake: current Alcohol intake frequency: holidays/special occasions only Patient Tobacco Use Status: Never used Tobacco Questionnaire PHQ-9 Over the last 2 weeks, how often have you been bothered by any of the following problems? 1. Little interest or pleasure in doing things: not at all 2. Feeling down, depressed, or hopeless: not at all 3. Trouble falling or staying asleep, or sleeping too much: not at all 4. Feeling tired or having little energy: not at all 5. Poor appetite or overeating: not at all 6. Feeling bad about yourself - or that you are a failure or have let yourself or your family down: not at all 7. Trouble concentrating on things, such as reading the newspaper or watching television: not at all 8. Moving or speaking so slowly that other people could have noticed. Or the opposite - being so fidgety or restless that you have been moving around a lot more than usual: not at all 9. Thoughts that you would be better off or of hurting yourself in some way: not at all Total score: 0 Source: Developed by Drs. Wisam Ledezma, Shayy Walden, Eddie Dasilva and colleagues, with an educational franklyn from [employer]. Thrive Questionnaire Date Thrive assessed: 10/27/24 I am a: Patient What is your living situation today?: I have a steady place to live Within the past 12 months, did the food you bought not last and you didn't have the money to get more?: Never true Within the past 12 months, did you worry whether your food would run out before you got money to buy more?: Never true Do you have trouble paying for medicines?: No Do you have trouble getting transportation to medical appointments?: No Do you have trouble paying your heating and electricity bill?: No Do you have trouble taking care of your child, family member or friend?: No Do you have trouble with day-to-day activities such as bathing, preparing meals, shopping, managing finances, etc.?: No Are you currently unemployed and looking for a job?: No Are you interested in more education?: No Please select the resources that you would like help with: None THRIVE Score: 0 MATILDE-7 AMB Questionnaire MATILDE-7 Date MATILDE - 7 assessed: 10/27/24 Feeling nervous, anxious, or on edge: 0 = Not at all Not being able to stop or control worryin = Not at all Worrying too much about different things: 0 = Not at all Trouble relaxin = Not at all Being so restless that it is hard to sit still: 0 = Not at all Becoming easily annoyed or irritable: 0 = Not at all Feeling afraid as if something awful might happen: 0 = Not at all Total MATILDE-7 score (0-4 normal; 5-9 mild; 10-14 moderate; 15-21 severe): 0 Source: Developed by Drs. Wisam Ledezma, Shayy Walden, Eddie Dasilva and colleagues, with an educational franklyn from [employer]. Physical exam (Primary Care) Vital Signs: Last Vital Signs Temp 97.9 F 10/27/24 08:47 Pulse 74 10/27/24 08:47 Resp 16 10/27/24 08:47 BP 134/82 10/27/24 09:13 Pulse Ox 99 10/27/24 08:47 Oxygen Delivery Method Room Air 10/27/24 08:47 BMI result Body Mass Index 29.5 Tobacco/Smoking Status: Tobacco use Status Patient Tobacco Use Status Never used Tobacco 10/27/24 08:50 Coding Level of Care Code Est Pt Level 4 (39192) Complex EM visit Add On G2211 Diagnoses Hypertension I10 HLD (hyperlipidemia) E78.5 Fibroadenoma of left breast D24.2 Abdominal aortic atherosclerosis I70.0 Assessment & Plan Assessment & Plan (1) Hypertension: Code(s): I10 - Essential (primary) hypertension Category: Medical Plan: Controlled at this time with blood pressure 134/82 on recheck. We will continue monitoring for now. She can continue off of the amlodipine for now. Low-sodium diet (2) HLD (hyperlipidemia): Code(s): E78.5 - Hyperlipidemia, unspecified Category: Medical Plan: Uncontrolled with last LDL 133 with goal less than 70 given history of atherosclerosis of the aorta. Last cardiology note reviewed. Will recheck lipid profile today and calculate ASCVD risk score. Recommend diet low in saturated fat and highly processed foods. (3) Fibroadenoma of left breast: Code(s): D24.2 - Benign neoplasm of left breast Category: Surgical Plan: Reviewed last mammogram recommending 6 month follow-up of the left breast given fibroadenoma. Continue following with General surgery (4) Abdominal aortic atherosclerosis: Code(s): I70.0 - Atherosclerosis of aorta Category: Medical Plan: Reviewed last note from Cardiology. Lipid panel ordered. Goal for LDL less than 70. We will calculate ASCVD risk score as above Plan Follow-up in 6 months. Labs to be completed following visit today. Forms to be completed following T spot completion EpiPen prescribed given history of angioedema with peanut oil exposure Orders: Orders Basic Metabolic Panel Today E78.5 - Hyperlipidemia, unspecified, I10 - Essential (primary) hypertension, Z13.1 - Encounter for screening for diabetes mellitus, Z78.0 - Asymptomatic menopausal state T Spot TB Today E78.5 - Hyperlipidemia, unspecified, I10 - Essential (primary) hypertension, Z13.1 - Encounter for screening for diabetes mellitus, Z78.0 - Asymptomatic menopausal state Lipid Panel Today E78.5 - Hyperlipidemia, unspecified, I10 - Essential (primary) hypertension, Z13.1 - Encounter for screening for diabetes mellitus, Z78.0 - Asymptomatic menopausal state Vitamin D 25-OH Total Today E78.5 - Hyperlipidemia, unspecified, I10 - Essential (primary) hypertension, Z13.1 - Encounter for screening for diabetes mellitus, Z78.0 - Asymptomatic menopausal state Hemoglobin A1c Today E78.5 - Hyperlipidemia, unspecified, I10 - Essential (primary) hypertension, Z13.1 - Encounter for screening for diabetes mellitus, Z78.0 - Asymptomatic menopausal state Complete Blood Count Auto Diff Today E78.5 - Hyperlipidemia, unspecified, I10 - Essential (primary) hypertension, Z13.1 - Encounter for screening for diabetes mellitus, Z78.0 - Asymptomatic menopausal state TSH reflex Free T4 Today R79.89 - Other specified abnormal findings of blood chemistry Medications: New epinephrine (EpiPen 2-Lucas) for 2 doses 0.3 mg (0.3 mL) IM Q10M PRN 2 ea 0RF anaphylaxis
[2024-10-27 08:47] VITALS: BP 152/90; PULSE 74; RESP 16; TEMP 36.6; O2SAT 99; BMI 29.5
[2024-10-27 09:13] VITALS: BP 134/82
== END 2024-10-27 09:19 | disposition home or self-care (01) ==
LOC: HO.HMCHD 08:34
PROVIDERS: PCP Internal Medicine; Visit Provider Physician Assistant
DX: I10 Essential (primary) hypertension (principal); E78.5 Hyperlipidemia, unspecified; D24.2 Benign neoplasm of left breast; I70.0 Atherosclerosis of aorta

== ENCOUNTER → 2024-10-27 08:34 | Outpatient (BNVA) | payer OTHER, SELFPAY | PROVIDERS: PCP Internal Medicine; Visit Provider Physician Assistant | DX: Z76.89 Persons encountering health services in other specified circumstances (principal); I10 Essential (primary) hypertension; E78.5 Hyperlipidemia, unspecified; D24.2 Benign neoplasm of left breast; I70.0 Atherosclerosis of aorta; Z13.31 Encounter for screening for depression; Z13.30 Encounter for screening examination for mental health and behavioral disorders, unspecified | CPT/HCPCS: 99212 ==

== ENCOUNTER 2024-10-27 09:24 | Outpatient (REF) | payer OTHER, SELFPAY ==
[2024-10-27 10:01] LABS: MANUAL DIFF FLAG NO
[2024-10-27 10:03] LABS: Basophils Percent Auto 0.3 % (0-2); Eosinophils Absolute Auto 0.1 X10*3/uL (0.0-0.4); Eosinophils Percent Auto 0.6 % (0-4); Hematocrit 42.5 % (37.0-47.0); Hemoglobin 13.8 g/dl (12.0-16.0); Imm Gran Abs Auto 0.04 X10*3/uL (0.00-0.03); Imm Gran Pct Auto 0.5 % (0.0-0.4); Lymphocytes Absolute Auto 2.7 X10*3/uL (1.2-4.9); Lymphocytes Percent Auto 34.1 % (20-40); Mean Corpuscular HGB Conc 32.5 g/dl (31.0-35.0); Mean Corpuscular Hemoglobin 30.5 pg (27.0-33.0); Mean Platelet Volume 10.3 fL (9.4-12.3); Monocytes Absolute Auto 0.5 X10*3/uL (0.1-1.2); Monocytes Percent Auto 6.4 % (2-11); Neutrophils Absolute Auto 4.6 x10*3/uL (2.0-8.3); Neutrophils Percent Auto 58.1 % (45-73); Platelet Count 358 X10*3/uL (160-400); Red Blood Count 4.52 X10*6/uL (4.20-5.50); White Blood Count 7.9 X10*3/uL (4.8-10.8)
[2024-10-27 10:10] LABS: Estimated Average Glucose 117 mg/dL; Hemoglobin A1C 141.4851 umol/L; Hemoglobin A1c % 5.7 % (<6.0); Total Hemoglobin (HGBA1C) 3606.8634 umol/L
[2024-10-27 10:23] LABS: Anion Gap 10 (12-20); Blood Urea Nitrogen 16 mg/dL (9-16); Calcium 9.4 mg/dL (8.4-10.2); Carbon Dioxide 28 mmol/L (22-29); Chloride 107 mmol/L (96-108); Cholesterol 194 mg/dL (<200); Estimated Glomerular Filt Rate > 60; Glucose Random 121 mg/dL (60-115); HDL Cholesterol 43 mg/dL (>40); LDL Cholesterol Calculated 128 mg/dL (<100); Potassium 4.4 mmol/L (3.3-5.1); Sodium 141 mmol/L (135-145); Triglycerides 118 mg/dL (<150)
[2024-10-27 10:43] LABS: TSH reflex Free T4 2.15 uIU/mL (0.32-4.0); Vitamin D 25-OH Total 31.4 ng/mL (>30)
[2024-10-30 01:54] LABS: TS Negative Control Passed; TS Panel A 0; TS Panel B 0; TS Positive Control Passed; TSpotTB Negative (Negative)
== END 2024-10-27 09:25 | disposition home or self-care (01) ==
LOC: HO.10HDL 09:24
PROVIDERS: Visit Provider Physician Assistant
DX: E78.5 Hyperlipidemia, unspecified (principal); Z78.0 Asymptomatic menopausal state; Z13.1 Encounter for screening for diabetes mellitus; R79.89 Other specified abnormal findings of blood chemistry; I10 Essential (primary) hypertension
CPT/HCPCS: 36415; 80048; 80061; 82306; 83036; 84443; 85025; 86481

== ENCOUNTER 2025-01-19 09:25 | Outpatient (AMB) | payer OTHER, SELFPAY ==
[2025-01-19 09:26] VITALS: BP 122/58; PULSE 76; TEMP 36.9; O2SAT 99; BMI 29.5
--- NOTE | 2025-01-19 09:26 | AM.OFFWIN_ITS ---
Intake Vital Signs 3 01/19/25 09:26 Height 4 ft 11 in Weight 146 lb BMI 29.5 BP 122/58 L Blood Pressure Location Rt brachial Position Sitting Pulse 76 Pulse Source Pulse Oximeter Temp 98.5 F Temp Source Oral Pulse Oximetry (%) 99 Oxygen Delivery Method Room Air Intake Visit Reasons: ep remove stitches Intake Note: pt presents with need for SR to left eyebrow Patient Tobacco Use Status: Never used Tobacco Allergies peanut Allergy (Intermediate, Verified 01/19/25 09:29) hives and edema ibuprofen Allergy (Mild, Verified 01/19/25 09:29) Hives environmental allergies Allergy (Unknown, Verified 01/19/25 09:29) Unknown Do you need a note to return to daycare/school/sports/work: No HPI HPI Comments 2 History of Present Illness0 Details 64 y/o Female patient who presents to [facility] walk in clinic for suture removal. Pt fell down and Hit her Face on concrete floor when she was on vacation [place] of [place] for family re-union. Pt was evaluated at a local hospital and hard 3 stitches placed on her left upper eyebrow on 01/08/25. [facility] Medical History (Updated 01/19/25 @ 09:52 by Simin Gong NP) Visit for suture removal HLD (hyperlipidemia) Hypertension Surgical History (Updated 10/24/24 @ 11:37 by Kaye Muñoz) History of colonoscopy (~09/08/15) History of bilateral fallopian tube excision Family History Father Diabetes Prostate cancer Mother HTN (hypertension) Maternal Uncle Colon cancer Social History Alcohol intake: current Alcohol intake frequency: holidays/special occasions only Patient Tobacco Use Status: Never used Tobacco Review of Systems Const All systems reviewed & are unremarkable except as noted in HPI and below Physical Exam Vital Signs: Last Vital Signs Temp 98.5 F 01/19/25 09:26 Pulse 76 01/19/25 09:26 BP 122/58 L 01/19/25 09:26 Pulse Ox 99 01/19/25 09:26 Oxygen Delivery Method Room Air 01/19/25 09:26 BMI result Body Mass Index 29.5 Const General: no acute distress Orientation/consciousness: patient oriented x3 HEENT Head: Yes normocephalic Eyes Eyes/upper lids images: 2 1. Removed 3 stitches, skin dry and non TTP. Wound healed and well approximated. Neuro General: patient oriented x3 Psych Speech and movement: Normal speech and movement present Assessment & Plan Assessment & Plan (1) Visit for suture removal: Code(s): Z48.02 - Encounter for removal of sutures Plan: Removed 3 stitches, skin dry and non TTP. Wound healed and well approximated. Patient tolerated Procedure well. Coding Level of Care Code Est Pt Level 4 (32852) Diagnoses Visit for suture removal Z48.02 Time Spent (min) 20
--- OUTSIDE RECORDS SUMMARY | 2025-01-19 10:37 | XMS_ITS | Patient Health Record ---
Author Organization [facility] Address [address] [place] [address] Care Team Providers Care Speaking Unit Assembler Name Role Phone Radha LEE, Hali Primary Care Provider Damon Givens Jr Unavailable [phone] Allergies Allergen (clinical drug ingredient) Drug/Non Drug Allergy documented on EMR Reaction Allergy Type Onset Date Status ibuprofen Ibuprofen Unknown Drug Allergy Active Reason For Referral No Information Medications Medication SIG (Take, Route, Fr equency, Duration) Notes Start Date End Date Status Omeprazole 20 MG 1 capsule Orally Onc e a day/prn Active OsmoPrep 1.102-0.398 GM 32 tablets Orall y over two days as directed for 2 day(s) 05/26/2015 Active LORazepam 0.5mg Acti ve Problems Problem Type SNOMED Code ICD Code Onset Dates Problem Status W/U Status Risk Notes Problem Screening for colon cancer (162074974) Screening for colon cancer (V76.51) Active confirmed Problem 854732304 Colon cancer screening (Z12.11) Active confirmed Problem [id number] Gastro-esophagea l reflux disease without esophagitis (K21.9) Active confirmed Plan Of Treatment Future Test Test Name Order Date COLONOSCOPY 01/16/2013 COLONOSCOPY 05/26/2015 Insurance Providers Payer Name Payer Address Payer Phone Subscriber Number Group Number Insured Name Patient Relationship to Insured Coverage Start Date Coverage End Date [facility] [address] [facility] [place] [phone] [id number] TROY CEDEÑO Self - patient is the insured Medical (General) History Medical History History ICD Code anxiety sensory neuropathy migraine headaches Surgical History Surgery Date(Month/Year) tubal ligation
== END 2025-01-19 09:52 | disposition home or self-care (01) ==
PROVIDERS: PCP Internal Medicine; Visit Provider Nurse Practitioner Family
DX: Z48.02 Encounter for removal of sutures (principal)

== ENCOUNTER → 2025-01-19 09:25 | Outpatient (BNVA) | payer OTHER, SELFPAY | PROVIDERS: PCP Internal Medicine; Visit Provider Physician Assistant Medical | DX: Z48.02 Encounter for removal of sutures (principal); Z87.2 Personal history of diseases of the skin and subcutaneous tissue | CPT/HCPCS: 99212 ==

== ENCOUNTER 2025-01-23 08:17 | Outpatient (REF) | payer OTHER, SELFPAY ==
--- NOTE | ~2025-01-23 | XR_ITS ---
EXAMINATION: XR ELBOW, LEFT CLINICAL INFORMATION: M25.521 - Pain in left elbow COMPARISON: None available. TECHNIQUE: AP, lateral, and oblique views of the left elbow. FINDINGS: Elbow fat pads are not displaced. On the AP view, there is lucency through the lateral aspect of the radial head concerning for fracture. No other abnormalities are seen. XR/XR elbow LT min 3V IMPRESSION: Age-indeterminate radial head fracture. There is no associated joint effusion raising question of a subacute or chronic etiology, though an acute fracture is possible. Electronically signed by: Ernesto Sandhu MD 01/23/2025 10:35 AM EDT
--- NOTE | ~2025-01-23 | XR_ITS ---
EXAMINATION: XR WRIST NAVICULAR LEFT HISTORY: M25.532 - Pain in left wrist COMPARISON: There are no prior studies available for comparison. FINDINGS: Four views of the left wrist, including a scaphoid view are submitted. Osseous mineralization is normal. There is no fracture or dislocation. There is mild widening of the scapholunate space which may indicate ligamentous injury. The joint spaces are otherwise preserved. The soft tissues are unremarkable. XR/XR wrist LT w scaphoid IMPRESSION: Mild widening of the scapholunate space, suggestive of ligamentous injury. Electronically signed by: Wisam Carver MD 01/23/2025 10:02 AM EDT
--- OUTSIDE RECORDS SUMMARY | 2025-01-23 08:35 | XMS_ITS | Patient Health Record ---
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 Name Role Phone Radha LEE, Hali Primary Care Provider Damon Givens Jr Unavailable [phone] Allergies Allergen (clinical drug ingredient) Drug/Non Drug [...] Risk Notes Problem Screening for colon cancer (330303004) Screening for colon cancer (V76.51) Active confirmed Problem 968301247 Colon cancer screening (Z12.11) Active confirmed Problem 692419100 Gastro-esophagea l reflux disease without esophagitis (K21.9) Active confirmed Plan Of Treatment Future Test Test Name Order Date COLONOSCOPY 01/16/2013 COLONOSCOPY 05/26/2015 Insurance Providers Payer Name Payer Address Payer Phone Subscriber Number Group Number Insured Name Patient Relationship to Insured Coverage Start Date Coverage End Date [facility] [address] [facility] [place] [phone] [id number] TROY CEDEÑO Self - patient is the insured Medical (General) History Medical History History ICD Code anxiety sensory neuropathy migraine headaches Surgical History Surgery Date(Month/Year) tubal ligation
== END 2025-01-23 08:18 | disposition home or self-care (01) ==
LOC: HO.HOSX 08:17
DX: S52.122A Displaced fracture of head of left radius, initial encounter for closed fracture (principal); X58.XXXA Exposure to other specified factors, initial encounter
CPT/HCPCS: 29085; 73080; 73110; 99202

== ENCOUNTER 2025-01-23 09:32 | Outpatient (AMB) | payer OTHER, SELFPAY ==
--- NOTE | 2025-01-23 10:03 | MHC.OFFVIS ---
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 She was evaluated at [facility] on 01/08/25 in [place]. Patient complains of pain on the dorsal aspect of the wrist as well at posterior aspect of the left elbow. She is taking [place] for pain with some relief. She finds the pain worsens when she brings her arm back, straightens it, or when she extends it out. Denies numbness or tingling. She has been wearing a brace and a sling she was given at the ED. She reports previous injury to the left wrist, non-surgical. 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 She was evaluated at [facility] on 01/08/25 in [place]. Patient complains of pain on the radial aspect of the wrist, particularly at the base of the thumb as well at posterior and lateral aspect of the left elbow. She is taking [place] for pain with some relief. She finds the pain worsens when she brings her arm back, straightens it, or when she extends it out. Denies numbness or tingling. She has been wearing a brace and a sling she was given at the ED. She reports previous injury to the left wrist, non-surgical. [facility] Medical History (Updated 01/23/25 @ 10:50 by MIRELA Mccullough) Visit for suture removal HLD (hyperlipidemia) Hypertension Surgical History History of colonoscopy (~09/08/15) History of bilateral fallopian tube excision Family History Father Diabetes Prostate cancer Mother HTN (hypertension) Maternal Uncle Colon cancer Social History (Updated 01/23/25 @ 10:07 by SONJA Wilkins) Alcohol intake: current Alcohol intake frequency: holidays/special occasions only Patient Tobacco Use Status: Never used Tobacco Current occupational status: retired 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 Neuro: Normal sensation of the tips of all digits of the left hand at this time Vascular: Cap refill brisk Pain: Some tenderness to palpation noted of the anatomical snuffbox of the left wrist Tenderness to palpation of the left radial head Discomfort in the base of the left thumb with range of motion Discomfort in the left elbow, primarily in the lateral aspect, with range of motion ROM: Patient is able to make a closed fist Patient is able to extend the left elbow to approximately 20 degrees and can flex to approximately 100 degrees Pronation full and intact Patient is able to supinate to approximately 60 degrees past neutral Skin: No lacerations or abrasions. General: Noted edema noted over the anatomical snuffbox of the left wrist No ecchymosis, erythema, or evidence of infection. Psych: Appears grossly normal Affect normal Attitude cooperative Office Procedures AMB Fracture Care Details: Left radial head fracture Fracture Billing Code: Fracture Billing Code Casting/Splints 47161-Myyf/Wrist Cast Application Procedure code (CPT) selection complete Results Reviewed Results Reviewed: X-rays obtained in the office today and independently reviewed by me, Calvin Richards PA-C, demonstrate minimally displaced fracture of the left radial head, as well as area of lucency in the left scaphoid concerning for potential nondisplaced scaphoid waist fracture. Assessment & Plan Assessment & Plan (1) Left radial head fracture: Code(s): S52.122A - Displaced fracture of head of left radius, initial encounter for closed fracture Category: Medical (2) Tenderness of anatomical snuffbox: Code(s): M79.643 - Pain in unspecified hand Category: Medical Plan 1. Left radial head fracture Date of injury 01/08/2025 Patient is educated about this condition Patient is educated about the typical treatment course At this time, patient is advised that she can wear the sling for comfort, however she should be removing this to work on gentle range of motion of the left elbow OT referral also placed for gentle range of motion of the left elbow Nonweightbearing in left upper extremity Follow-up in 2-3 weeks with repeat x-rays for reassessment, sooner with any acute concerns 2. Left anatomical snuffbox tenderness With questionable area of lucency on x-ray At this time, patient is placed into a thumb spica cast out of a caution for potential occult scaphoid fracture Patient is also referred for MRI of the left wrist to assess the scaphoid and determine if there is indeed a fracture there Once again, nonweightbearing in left upper extremity Patient is educated on proper cast care and precautions Patient understands this is amenable to this plan Follow-up after MRI Orders: Orders OT Evaluation and Treatment Today S52.122A - Displaced fracture of head of left radius, initial encounter for closed fracture MR wrist LT wo con Today M79.643 - Pain in unspecified hand XR wrist LT w scaphoid Today M25.532 - Pain in left wrist Coding Level of Care Code New Pt Level 4 (92583) Diagnoses Left radial head fracture S52.122A Tenderness of anatomical snuffbox M79.643 CPT Codes Fracture Care - Fracture Billing Code: Fracture Billing Code ([id number]) Casting - CPT: 17770-Fbox/Wrist Cast Application ([id number])
[2025-01-23 10:05] VITALS: BMI 29.5
== END 2025-01-23 11:34 | disposition home or self-care (01) ==
LOC: HO.HOS 09:32
PROVIDERS: PCP Internal Medicine
DX: S52.122A Displaced fracture of head of left radius, initial encounter for closed fracture (principal); M79.642 Pain in left hand
CPT/HCPCS: 29085; 99204

== ENCOUNTER → 2025-01-23 09:46 | Outpatient (BNV) | payer OTHER, SELFPAY | PROVIDERS: Visit Provider Radiology Diagnostic Radiology | DX: M25.522 Pain in left elbow (principal) | CPT/HCPCS: 73080 ==

== ENCOUNTER 2025-02-03 19:37 | Outpatient (REF) | payer OTHER, SELFPAY ==
--- NOTE | ~2025-02-03 | MR_ITS ---
CLINICAL HISTORY: M79.643 - Pain in unspecified hand --- Additional Notes or Special Instructions: ? scaphoid fracture MR left wrist without gadolinium Comparison: DX/SR - XR WRIST NAVICULAR LEFT - 01/23/25 09:46 EDT Findings: Localized bone marrow edema of the distal radial epiphysis and metaphysis. Bone marrow edema of the triquetrum, coronal image number 13 of 22. Bone marrow edema localized to the medial aspect of the hamate, coronal image number 13 of 22. No joint effusion. Scapholunate, and lunotriquetral ligaments are intact. Flexor and extensor tendons are intact. Also 3rd compartment demonstrates fluid surrounding the extensor pollicis longus and 2nd compartment extensor carpi radialis longus and extensor carpi radialis brevis, axial image number 6 of 24 series 4. Intact triangular fibrocartilage complex. There is no thickening or bowing of the flexor retinaculum. Unremarkable median and ulnar nerves. Widening of the scapholunate intercarpal space, coronal image number 12 of 22 series 8. IMPRESSION: 1. Localized bone marrow edema of the distal radial epiphysis and metaphysis, triquetrum and medial aspect of the hamate; bone contusions/micro fractures from impaction. 2. Widening of the scapholunate intercarpal space with intact ligament; ligament laxity versus loss of volume of the distal radial epiphysis from impaction. 3. Localized Tenosynovitis of the 2nd and 3rd compartments tendons. This document has been electronically signed by: Lj Flor MD on 02/03/2025 21:02:37
--- OUTSIDE RECORDS SUMMARY | 2025-02-03 19:41 | XMS_ITS | Patient Health Record ---
Author Organization [facility] Address [address] [place] [address] Care Team Providers Care Hot [place]ound [place] Production Supervisor Name Role Phone Radha LEE, Hali Primary Care Provider Damon Givens Jr Unavailable [phone] Allergies Allergen (clinical drug ingredient) Drug/Non Drug [...] Risk Notes Problem Screening for colon cancer (633451356) Screening for colon cancer (V76.51) Active confirmed Problem [id number] Colon cancer screening (Z12.11) Active confirmed Problem [id number] Gastro-esophagea l reflux disease without esophagitis (K21.9) Active confirmed Plan Of Treatment Future Test Test Name Order Date COLONOSCOPY 01/16/2013 COLONOSCOPY 05/26/2015 Insurance Providers Payer Name Payer Address Payer Phone Subscriber Number Group Number Insured Name Patient Relationship to Insured Coverage Start Date Coverage End Date [facility] [address] [facility] [place] [phone] [id number] TROY CEDEÑO Self - patient is the insured Medical (General) History Medical History History ICD Code anxiety sensory neuropathy migraine headaches Surgical History Surgery Date(Month/Year) tubal ligation
== END 2025-02-03 19:38 | disposition home or self-care (01) ==
LOC: HO.MRI 19:37
PROVIDERS: PCP Internal Medicine
DX: M79.642 Pain in left hand (principal)
CPT/HCPCS: 73221

== ENCOUNTER → 2025-02-03 19:52 | Outpatient (BNV) | payer OTHER, SELFPAY | PROVIDERS: PCP Internal Medicine; Visit Provider Radiology Diagnostic Radiology | DX: S60.812A Abrasion of left wrist, initial encounter (principal); M65.842 Other synovitis and tenosynovitis, left hand | CPT/HCPCS: 73221 ==

== ENCOUNTER 2025-02-04 09:29 | Outpatient (AMB) | payer OTHER, SELFPAY ==
--- NOTE | 2025-02-04 09:55 | MHC.OFFVIS ---
Intake Visit Reasons: Cast Change-Left radial head fracture Intake Note: Carolyn is a 64 year old righthand dominant woman who presents today for a cast change of her thumb spica cast. She reports the cast has loosened and it also was dirty. Allergies peanut Allergy (Intermediate, Verified 02/04/25 10:07) hives and edema ibuprofen Allergy (Mild, Verified 02/04/25 10:07) Hives environmental allergies Allergy (Unknown, Verified 02/04/25 10:07) Unknown HPI HPI Cast Change-Left radial head fracture: Details: Carolyn is a 64 year old righthand dominant woman who presents today for a cast change of her thumb spica cast. She reports the cast has loosened and it also was dirty. [facility] Medical History Visit for suture removal HLD (hyperlipidemia) Hypertension Surgical History History of colonoscopy (~09/08/15) History of bilateral fallopian tube excision Family History Father Diabetes Prostate cancer Mother HTN (hypertension) Maternal Uncle Colon cancer Social History Alcohol intake: current Alcohol intake frequency: holidays/special occasions only Patient Tobacco Use Status: Never used Tobacco Current occupational status: retired Current occupation: rt handed Review of Systems Const All systems reviewed & are unremarkable except as noted in HPI and below Physical Exam Extrem Other: Patient is alert, oriented, and in no acute distress. Neuro: Normal sensation of the tips of all digits of the left hand at this time Vascular: Cap refill brisk Skin: No lacerations or abrasions. General: Improved edema noted over the anatomical snuffbox of the left wrist No ecchymosis, erythema, or evidence of infection. Psych: Appears grossly normal Affect normal Attitude cooperative Office Procedures Casting/Splints 40513-Gzav/Wrist Cast Application Procedure code (CPT) selection complete Assessment & Plan Assessment & Plan (1) Left radial head fracture: Code(s): S52.122A - Displaced fracture of head of left radius, initial encounter for closed fracture Category: Medical (2) Tenderness of anatomical snuffbox: Code(s): M79.643 - Pain in unspecified hand Category: Medical Plan 2. Left anatomical snuffbox tenderness With questionable area of lucency on x-ray At this time, patient is placed into a thumb spica cast out of a caution for potential occult scaphoid fracture Once again, nonweightbearing in left upper extremity Patient is educated on proper cast care and precautions Patient understands this is amenable to this plan Follow-up after MRI for results review with Dr. Howe, sooner with any acute concerns Coding Level of Care Code Est Pt Level 3 (43508) Diagnoses Left radial head fracture S52.122A Tenderness of anatomical snuffbox M79.643 CPT Codes Casting - CPT: 40842-Eojr/Wrist Cast Application ([id number])
--- OUTSIDE RECORDS SUMMARY | 2025-02-04 11:20 | XMS_ITS | Patient Health Record ---
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 Name Role Phone Radha LEE, Hali Primary Care Provider Damon Givens Jr Unavailable Allergies Allergen (clinical drug ingredient) Drug/Non Drug [...] Risk Notes Problem Screening for colon cancer (136253672) Screening for colon cancer (V76.51) Active confirmed Problem 786193335 Colon cancer screening (Z12.11) Active confirmed Problem 605764767 Gastro-esophagea l reflux disease without esophagitis (K21.9) Active confirmed Plan Of Treatment Future Test Test Name Order Date COLONOSCOPY 01/16/2013 COLONOSCOPY 05/26/2015 Insurance Providers Payer Name Payer Address Payer Phone Subscriber Number Group Number Insured Name Patient Relationship to Insured Coverage Start Date Coverage End Date [facility] [address] [facility] [place] [phone] [id number] TROY CEDEÑO Self - patient is the insured Medical (General) History Medical History History ICD Code anxiety sensory neuropathy migraine headaches Surgical History Surgery Date(Month/Year) tubal ligation
== END 2025-02-04 10:45 | disposition home or self-care (01) ==
LOC: HO.HOS 09:30
PROVIDERS: PCP Internal Medicine
DX: S52.122A Displaced fracture of head of left radius, initial encounter for closed fracture (principal); M79.642 Pain in left hand
CPT/HCPCS: 29085; 99213

== ENCOUNTER → 2025-02-04 09:29 | Outpatient (BNVA) | payer OTHER, SELFPAY | PROVIDERS: PCP Internal Medicine | DX: S52.122A Displaced fracture of head of left radius, initial encounter for closed fracture (principal); X58.XXXA Exposure to other specified factors, initial encounter; Y93.9 Activity, unspecified; Y92.9 Unspecified place or not applicable; Y99.9 Unspecified external cause status; M79.642 Pain in left hand | CPT/HCPCS: 29085; 99212 ==

== ENCOUNTER 2025-02-10 08:32 | Outpatient (AMB) | payer OTHER, SELFPAY ==
--- NOTE | 2025-02-10 08:50 | MHC.OFFVIS ---
Vital Signs 02/10/25 08:51 Height 4 ft 11 in Weight 146 lb BMI 29.5 Intake Visit Reasons: OV-Left Wrist MRI Review Intake Note: Carolyn is a 65 year old right hand dominant female who presents today for an MRI review of her Left wrist. She is s/p Left Radial Head fracture from 01/08/25 . States has discontinued her sling at this time. Currently she remains in the Thumb spica cast and MRI was ordered due to concerns of snuffbox tenderness. She was instructed to remain non weight bearing with her LUE. Allergies peanut Allergy (Intermediate, Verified 02/10/25 08:53) hives and edema ibuprofen Allergy (Mild, Verified 02/10/25 08:53) Hives environmental allergies Allergy (Unknown, Verified 02/10/25 08:53) Unknown HPI HPI OV-Left Wrist MRI Review: Details: Carolyn is a 65 year old right hand dominant woman who presents for an MRI review of her left wrist. She has been seen by Calvin for pain in her left wrist and for a left radial head fracture with snuffbox tenderness, DOI: 01/08/25, after a fall down some stairs. She says her wrist is feeling better since she was placed in a cast, though she continues to have some pain. She is following with MIRELA Simpson tomorrow for her radial head fracture. She is retired but worked at [employer] for any years [employer] Medical History Visit for suture removal HLD (hyperlipidemia) Hypertension Surgical History History of colonoscopy (~09/08/15) History of bilateral fallopian tube excision Family History Father Diabetes Prostate cancer Mother HTN (hypertension) Maternal Uncle Colon cancer Social History Alcohol intake: current Alcohol intake frequency: holidays/special occasions only Patient Tobacco Use Status: Never used Tobacco Current occupational status: retired Current occupation: rt handed Review of Systems Const All systems reviewed & are unremarkable except as noted in HPI and below Physical Exam Vital Signs: BMI result Body Mass Index 29.5 Const General: cooperative, healthy appearing and no acute distress Orientation/consciousness: patient oriented x3 HEENT Head: Yes normocephalic and Yes atraumatic Eyes EOM: EOMs intact bilaterally Resp Effort & Inspection: normal respiratory effort and able to speak in complete sentences Cardio Jugular venous distension: no JVD Skin General skin exam: turgor normal Rashes: no rashes Neuro General: patient oriented x3 Extrem Other: Evaluation of Left Upper Extremity: The patient is alert, oriented, and in no acute distress She is seen in a thumb spica cast today Neuro: Median, Ulnar, Radial nerves motor and sensory intact and sensation is normal to the tips of all digits Vascular: Cap refill brisk General: No Ecchymosis. No Erythema or evidence of infection. Left Wrist MRI: Findings: Localized bone marrow edema of the distal radial epiphysis and metaphysis. Bone marrow edema of the triquetrum, coronal image number 13 of 22. Bone marrow edema localized to the medial aspect of the hamate, coronal image number 13 of 22. No joint effusion. Scapholunate, and lunotriquetral ligaments are intact. Flexor and extensor tendons are intact. Also 3rd compartment demonstrates fluid surrounding the extensor pollicis longus and 2nd compartment extensor carpi radialis longus and extensor carpi radialis brevis, axial image number 6 of 24 series 4. Intact triangular fibrocartilage complex. There is no thickening or bowing of the flexor retinaculum. Unremarkable median and ulnar nerves. Widening of the scapholunate intercarpal space, coronal image number 12 of 22 series 8. IMPRESSION: 1. Localized bone marrow edema of the distal radial epiphysis and metaphysis, triquetrum and medial aspect of the hamate; bone contusions/micro fractures from impaction. 2. Widening of the scapholunate intercarpal space with intact ligament; ligament laxity versus loss of volume of the distal radial epiphysis from impaction. 3. Localized Tenosynovitis of the 2nd and 3rd compartments tendons. This document has been electronically signed by: Lj Flor MD on 02/03/2025 21:02:37 Psych Appearance: grossly normal Affect: normal affect Attitude: cooperative Assessment & Plan Assessment & Plan (1) Contusion of left wrist: Code(s): S60.212A - Contusion of left wrist, initial encounter Category: Medical (2) Left radial head fracture: Code(s): S52.122A - Displaced fracture of head of left radius, initial encounter for closed fracture Category: Medical (3) Scapholunate ligament injury with no instability: Comment: L Code(s): S69.90XA - Unspecified injury of unspecified wrist, hand and finger(s), initial encounter Category: Medical Plan Assessment & Plan: 1. Left distal radius contusion Also of the Triquetrum & Pisiform After a fall, DOI: 01/08/25 Seen on T2 images in the MRI. No clear fracture 2. Left scapholunate ligament widening After a fall, DOI: 01/08/25 I educated her about these conditions I discussed operative and non-operative treatment options No operative treatment indicated at this time She will remain in her thumb spica cast for the next 2 weeks I recommend activity modification & bracing, and she is in agreement I discussed activity modification, she is to lift nothing heavier than a cellphone for the next 2 weeks. They should also avoid any heavy impact activities, falls, or sports activities for the next 4 weeks She will work on finger ROM exercises in her cast She will follow up in 2 weeks, no X-rays. Consider OT referral at next appointment, and continue activity modifications with no heavy lifting 3. Left radial head fracture After a fall, DOI: 01/08/25 She is following with MIRELA Simpson for this. Scribed for Christel Howe MD by Pool Ro, medical lab scientist, on 02/10/25 at 9:50 AM, EST. Coding Level of Care Code Est Pt Level 4 (33232) Diagnoses Contusion of left wrist S60.212A Left radial head fracture S52.122A Scapholunate ligament injury with no instability S69.90XA
[2025-02-10 08:51] VITALS: BMI 29.5
--- OUTSIDE RECORDS SUMMARY | 2025-02-10 08:52 | XMS_ITS | Patient Health Record ---
Author Organization [facility] Address [address] [place] [address] Care Team Providers Care Manager Proposal Name Role Phone Radha LEE, Hali Primary Care Provider Damon Givens Jr Unavailable [phone] Allergies Allergen (clinical drug ingredient) Drug/Non Drug [...] Risk Notes Problem Screening for colon cancer (824795220) Screening for colon cancer (V76.51) Active confirmed Problem 824551375 Colon cancer screening (Z12.11) Active confirmed Problem 965114032 Gastro-esophagea l reflux disease without esophagitis (K21.9) Active confirmed Plan Of Treatment Future Test Test Name Order Date COLONOSCOPY 01/16/2013 COLONOSCOPY 05/26/2015 Insurance Providers Payer Name Payer Address Payer Phone Subscriber Number Group Number Insured Name Patient Relationship to Insured Coverage Start Date Coverage End Date [facility] [address] [facility] [place] [phone] [id number] TROY CEDEÑO Self - patient is the insured Medical (General) History Medical History History ICD Code anxiety sensory neuropathy migraine headaches Surgical History Surgery Date(Month/Year) tubal ligation
== END 2025-02-10 10:31 | disposition home or self-care (01) ==
LOC: HO.HOS 08:33
PROVIDERS: Visit Provider Orthopaedic Surgery
DX: S60.212A Contusion of left wrist, initial encounter (principal); S52.122A Displaced fracture of head of left radius, initial encounter for closed fracture; S69.90XA Unspecified injury of unspecified wrist, hand and finger(s), initial encounter
CPT/HCPCS: 99214

== ENCOUNTER → 2025-02-10 08:32 | Outpatient (BNVA) | payer OTHER, SELFPAY | PROVIDERS: Visit Provider Orthopaedic Surgery | DX: Z71.2 Person consulting for explanation of examination or test findings (principal); S60.212D Contusion of left wrist, subsequent encounter; S52.122D Displaced fracture of head of left radius, subsequent encounter for closed fracture with routine healing; S69.90XD Unspecified injury of unspecified wrist, hand and finger(s), subsequent encounter | CPT/HCPCS: 99212 ==

== ENCOUNTER 2025-02-11 10:32 | Outpatient (REF) | payer OTHER, SELFPAY ==
--- NOTE | ~2025-02-11 | XR_ITS ---
EXAMINATION: XR ELBOW, LEFT CLINICAL INFORMATION: M25.522 - Pain in left elbow COMPARISON: January 23, 2025. TECHNIQUE: AP, lateral, and oblique views of the left elbow. FINDINGS: There is no periosteal bone reaction or callus formation at the radial head fracture. Possible small joint effusion. No gross malalignment. XR/XR elbow LT min 3V IMPRESSION: No healing radial head fracture. Electronically signed by: Solitario Veronica MD 02/11/2025 11:46 AM EDT
== END 2025-02-11 10:33 | disposition home or self-care (01) ==
LOC: HO.HOSX 10:32
DX: S52.122D Displaced fracture of head of left radius, subsequent encounter for closed fracture with routine healing (principal); W19.XXXD Unspecified fall, subsequent encounter
CPT/HCPCS: 73080; 99212

== ENCOUNTER 2025-02-11 10:32 | Outpatient (AMB) | payer OTHER, SELFPAY ==
--- NOTE | 2025-02-11 10:43 | MHC.OFFVIS ---
Vital Signs 02/11/25 10:49 Height 4 ft 11 in Weight 146 lb BMI 29.5 Handedness Right Intake Visit Reasons: New Prob-Left elbow Pain Intake Note: Carolyn is a 65 year old right hand dominant female who presents today for a New Problem Visit for evaluation of Left Elbow Pain, DOI: 01/08/25 s/p fall. Patient reports her pain has mildly improved since her fall. She expresses certain movements of the left arm cause her stabbing pain in the left elbow. She does not take any pain medications for this, says she just re-adjust her arm to relieve her discomfort. Patient has a history of Left Radial Head Fracture, DOI: 01/08/25. Allergies peanut Allergy (Intermediate, Verified 02/11/25 10:49) hives and edema ibuprofen Allergy (Mild, Verified 02/11/25 10:49) Hives environmental allergies Allergy (Unknown, Verified 02/11/25 10:49) Unknown HPI HPI New Prob-Left elbow Pain: Details: Carolyn is a 65 year old right hand dominant female who presents today for follow-up for left radial head fracture, date of injury 01/08/2025. s/p fall. Patient reports her pain has mildly improved since her fall. She expresses certain movements of the left arm cause her stabbing pain in the left elbow. She does not take any pain medications for this, says she just re-adjust her arm to relieve her discomfort. Patient has a history of Left Radial Head Fracture, DOI: 01/08/25. 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 Neuro: Normal sensation of the tips of all digits of the left hand at this time Vascular: Cap refill brisk Pain: Tenderness to palpation of the left radial head Discomfort in the left elbow, primarily in the lateral aspect, with range of motion ROM: Patient is able to make a closed fist Patient is able to extend the left elbow to approximately 20 degrees and can flex to approximately 100 degrees Pronation full and intact Patient is able to supinate to approximately 60 degrees past neutral Skin: No lacerations or abrasions. General: No ecchymosis, erythema, or evidence of infection. Psych: Appears grossly normal Affect normal Attitude cooperative Results Reviewed Results Reviewed: X-rays obtained in the office today and independently reviewed by me, Calvin Richards PA-C, demonstrate minimally displaced fracture of the left radial head in similar clinical alignment to previous evaluation with evidence of some early interval bony healing. Assessment & Plan Assessment & Plan (1) Left radial head fracture: Code(s): S52.122A - Displaced fracture of head of left radius, initial encounter for closed fracture Category: Medical Plan 1. Left radial head fracture Date of injury 01/08/2025 Patient appears to be recovering well from her injury Patient is educated about the typical recovery course 2 lb weight limit reinforced in the left upper extremity Patient should continue with occupational therapy for range of motion of the left elbow Patient should only be in sling when in a crowded or high-risk environment, otherwise should be out of work on range of motion of the elbow, wrist, hand, and shoulder Follow-up in 1 month with repeat x-rays for reassessment, sooner with any acute concerns Orders: Orders XR elbow LT min 3V 02/11/25 M25.522 - Pain in left elbow Coding Level of Care Code Global (90945) Diagnoses Left radial head fracture S52.122A
[2025-02-11 10:49] VITALS: BMI 29.5
--- OUTSIDE RECORDS SUMMARY | 2025-02-11 12:08 | XMS_ITS | Patient Health Record ---
Author Organization [facility] Address [address] [place] [address] Care Team Providers Care Ton Container Filler Name Role Phone Radha LEE, Hali Primary Care Provider Damon Givens Jr Unavailable [phone] Allergies Allergen (clinical drug ingredient) Drug/Non [...] Risk Notes Problem Screening for colon cancer (920979000) Screening for colon cancer (V76.51) Active confirmed Problem [id number] Colon cancer screening (Z12.11) Active confirmed Problem 980782276 Gastro-esophagea l reflux disease without esophagitis (K21.9) Active confirmed Plan Of Treatment Future Test Test Name Order Date COLONOSCOPY 01/16/2013 COLONOSCOPY 05/26/2015 Insurance Providers Payer Name Payer Address Payer Phone Subscriber Number Group Number Insured Name Patient Relationship to Insured Coverage Start Date Coverage End Date [facility] [address] [facility] [place] [phone] [id number] TROY CEDEÑO Self - patient is the insured Medical (General) History Medical History History ICD Code anxiety sensory neuropathy migraine headaches Surgical History Surgery Date(Month/Year) tubal ligation
== END 2025-02-11 11:34 | disposition home or self-care (01) ==
LOC: HO.HOS 10:33
DX: S52.122A Displaced fracture of head of left radius, initial encounter for closed fracture (principal)
CPT/HCPCS: 99213

== ENCOUNTER → 2025-02-11 11:02 | Outpatient (BNV) | payer OTHER, SELFPAY | PROVIDERS: Visit Provider Radiology Diagnostic Radiology | DX: S52.122D Displaced fracture of head of left radius, subsequent encounter for closed fracture with routine healing (principal) | CPT/HCPCS: 73080 ==

== ENCOUNTER 2025-02-17 08:28 | Outpatient (REF) | payer OTHER, SELFPAY ==
--- NOTE | ~2025-02-17 | MM_ITS ---
EXAMINATION: MM DIAGNOSTIC DIGITAL BREAST TOMOSYNTHESIS, LEFT CLINICAL INFORMATION: Recent left breast biopsy fibroadenoma. 6 month follow-up for asymmetry in the superior left breast on MLO view without prior sonographic correlate. COMPARISON: Mammography: Priors on PACS. TECHNIQUE: Digital breast tomosynthesis is performed in both the craniocaudal and mediolateral oblique views along with computer-aided detection (CAD). Synthesized 2D images are generated from the tomosynthesis. FINDINGS: The breasts are heterogeneously dense, which may obscure small masses. Asymmetry superior left breast middle depth on MLO view is not significantly changed from prior. No prior sonographic correlate was seen. Marker clip. No suspicious calcifications or other abnormal findings. MM/MM tomosynthesis diagnostic LT IMPRESSION: Asymmetry superior left breast middle depth on MLO view without prior sonographic correlate which is not significantly changed from prior. Recommend six-month follow-up to demonstrate 1 year stability. ASSESSMENT: BI-RADS Category 3: Probably benign RECOMMENDATION: 6 Month F/U Results were provided to the patient at time of visit by the technologist. This patient's information was entered into a reminder system with a target due date for their next mammogram. Electronically signed by: Octavia Barber DO 02/17/2025 12:21 PM EDT
--- OUTSIDE RECORDS SUMMARY | 2025-02-17 09:01 | XMS_ITS | Patient Health Record ---
Author Organization [facility] Address [address] [place] [address] Care Team Providers Care Urology Teacher Name Role Phone Radha LEE, Hali Primary [...] Risk Notes Problem Screening for colon cancer (257996061) Screening for colon cancer (V76.51) Active confirmed Problem 116011043 Colon cancer screening (Z12.11) Active confirmed Problem 850575233 Gastro-esophagea l reflux disease without esophagitis (K21.9) Active confirmed Plan Of Treatment Future Test Test Name Order Date COLONOSCOPY 01/16/2013 COLONOSCOPY 05/26/2015 Insurance Providers Payer Name Payer Address Payer Phone Subscriber Number Group Number Insured Name Patient Relationship to Insured Coverage Start Date Coverage End Date [facility] [address] [facility] [place] [phone] [id number] TROY CEDEÑO Self - patient is the insured Medical (General) History Medical History History ICD Code anxiety sensory neuropathy migraine headaches Surgical History Surgery Date(Month/Year) tubal ligation
== END 2025-02-17 08:29 | disposition home or self-care (01) ==
LOC: HO.MAMMO 08:28
PROVIDERS: Absent Provider Surgery; PCP Internal Medicine; Visit Provider Internal Medicine
DX: D24.2 Benign neoplasm of left breast (principal)
CPT/HCPCS: 77061; 77065

== ENCOUNTER → 2025-02-17 08:30 | Outpatient (BNV) | payer OTHER, SELFPAY | PROVIDERS: Absent Provider Surgery; PCP Internal Medicine; Visit Provider Internal Medicine | DX: R92.8 Other abnormal and inconclusive findings on diagnostic imaging of breast (principal) | CPT/HCPCS: 77061; 77065 ==

== ENCOUNTER 2025-02-25 09:54 | Outpatient (AMB) | payer OTHER, SELFPAY ==
[2025-02-25 10:16] VITALS: BMI 29.5
--- NOTE | 2025-02-25 10:16 | MHC.OFFVIS ---
Vital Signs 02/25/25 10:16 Height 4 ft 11 in Weight 146 lb BMI 29.5 Intake Visit Reasons: OV Left Wrist pain Intake Note: Carolyn 65 yr old right hand dominant female presents today for her follow up visit for her left distal radius contusion s/p a fall, DOI: 01/08/25. At her last visit with Dr. Howe, patient was placed in a thumb spica cast for the next 2 weeks, she is to lift nothing heavier than a cellphone for the next 2 weeks. She is aware she should also avoid any heavy impact activities, falls, or sports activities for the next 4 weeks. She will work on finger ROM exercises in her cast, follow up in 2 weeks and may consider OT referral at next appointment. Today states she has no pain, just a little sorness. Cast removed in office. Allergies peanut Allergy (Intermediate, Verified 02/25/25 10:24) hives and edema ibuprofen Allergy (Mild, Verified 02/25/25 10:24) Hives environmental allergies Allergy (Unknown, Verified 02/25/25 10:24) Unknown HPI HPI OV Left Wrist pain: Details: Carolyn is a 65 year old right hand dominant woman who returns for her left wrist sprain and partial scapholunate ligament injury. She also has a left radial head fracture, S/P fall, DOI: 01/08/25, which she is seeing MIRELA Simpson for. She says she is doing well and only has some mild soreness after her cast was removed. She is happy with the improvement of her wrist pain. She continues to follow with MIRELA Simpson for her radial head fracture. 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 occupation: rt handed Physical Exam Vital Signs: BMI result Body Mass Index 29.5 Extrem Other: Evaluation of Left Upper Extremity: The patient is alert, oriented, and in no acute distress Neuro: Median, Ulnar, Radial nerves motor and sensory intact and sensation is normal to the tips of all digits Vascular: Cap refill brisk ROM: She can make a fist and extend all her digits General: No tenderness over the distal radius, DRUJ, or distal ulna No snuffbox or scaphoid tubercle tenderness, no tenderness over the dorsal aspect of the wrist No tenderness about the thumb Left Wrist MRI: Findings: Localized bone marrow edema of the distal radial epiphysis and metaphysis. Bone marrow edema of the triquetrum, coronal image number 13 of 22. Bone marrow edema localized to the medial aspect of the hamate, coronal image number 13 of 22. No joint effusion. Scapholunate, and lunotriquetral ligaments are intact. Flexor and extensor tendons are intact. Also 3rd compartment demonstrates fluid surrounding the extensor pollicis longus and 2nd compartment extensor carpi radialis longus and extensor carpi radialis brevis, axial image number 6 of 24 series 4. Intact triangular fibrocartilage complex. There is no thickening or bowing of the flexor retinaculum. Unremarkable median and ulnar nerves. Widening of the scapholunate intercarpal space, coronal image number 12 of 22 series 8. IMPRESSION: 1. Localized bone marrow edema of the distal radial epiphysis and metaphysis, triquetrum and medial aspect of the hamate; bone contusions/micro fractures from impaction. 2. Widening of the scapholunate intercarpal space with intact ligament; ligament laxity versus loss of volume of the distal radial epiphysis from impaction. 3. Localized Tenosynovitis of the 2nd and 3rd compartments tendons. This document has been electronically signed by: Lj Flor MD on 02/03/2025 21:02:37 Assessment & Plan Assessment & Plan (1) Contusion of left wrist: Code(s): S60.212A - Contusion of left wrist, initial encounter Category: Medical (2) Left radial head fracture: Code(s): S52.122A - Displaced fracture of head of left radius, initial encounter for closed fracture Category: Medical (3) Scapholunate ligament injury with no instability: Comment: L Code(s): S69.90XA - Unspecified injury of unspecified wrist, hand and finger(s), initial encounter Category: Medical Plan Assessment & Plan: 1. Left distal radius contusion Also of the Triquetrum & Pisiform After a fall, DOI: 01/08/25 Seen on T2 images in the MRI. No clear fracture 2. Left scapholunate ligament mild widening Ligament intact on MRI After a fall, DOI: 01/08/25 I educated her about these conditions No operative treatment indicated at this time I recommend activity modification & bracing, and she is in agreement She was fitted for a velcro wrist splint, to be worn with daily activities for the next 4 weeks. She can remove this at rest & to work on ROM exercises I discussed activity modification, she is to use her hand for lightweight activities and slowly increase her activity level over the next few weeks. She should any falls or impact activities for the next 4 weeks. She is currently attending OT for her elbow. I ordered an additional course of OT hand therapy to work on stretching, gentle strengthening, and normalizing function She will follow up in 5-6 weeks with MIRELA Simpson for a ROM check. 3. Left radial head fracture After a fall, DOI: 01/08/25 She is following with MIRELA Simpson for this. Scribed for Christel Howe MD by Pool Ro, certified court/medical interpreter, on 02/25/25 at 10:40 AM, EST. Orders: Orders OT Evaluation and Treatment Today S52.122A - Displaced fracture of head of left radius, initial encounter for closed fracture, S60.212A - Contusion of left wrist, initial encounter, S69.90XA - Unspecified injury of unspecified wrist, hand and finger(s), initial encounter Coding Level of Care Code Est Pt Level 3 (70368) Diagnoses Contusion of left wrist S60.212A Left radial head fracture S52.122A Scapholunate ligament injury with no instability S69.90XA
--- OUTSIDE RECORDS SUMMARY | 2025-02-25 11:30 | XMS_ITS | Patient Health Record ---
Author Organization [facility] Address [address] [place] [address] Care Team Providers Care Climate Change Analyst Name Role Phone Radha LEE, Hali Primary [...] tablets Orall y over two days as directed; Duration: 2 day(s) 05/26/2015 Active LORazepam 0.5mg Acti ve Problems Problem Type SNOMED Code ICD Code Onset Dates Problem Status W/U Status Risk Notes Problem Screening for colon cancer (087661172) Screening for colon cancer (V76.51) Active confirmed Problem Colon cancer screening (212486185) Colon cancer screening (Z12.11) Active confirmed Problem Gastro-esophagea l reflux disease without esophagitis (640244178) Gastro-esophage al reflux disease without esophagitis (K21.9) Active confirmed Plan Of Treatment Future Test Test Name Order Date COLONOSCOPY 01/16/2013 COLONOSCOPY 05/26/2015 Insurance Providers Payer Name Payer Address Payer Phone Subscriber Number Group Number Insured Name Patient Relationship to Insured Coverage Start Date Coverage End Date [facility] [address] [facility] [phone] [id number] TROY CEDEÑO Self - patient is the insured Medical (General) History Medical History History ICD Code anxiety sensory neuropathy migraine headaches Surgical History Surgery Date(Month/Year) tubal ligation
== END 2025-02-25 10:55 | disposition home or self-care (01) ==
LOC: HO.HOS 09:55
PROVIDERS: PCP Internal Medicine; Visit Provider Orthopaedic Surgery
DX: S60.212A Contusion of left wrist, initial encounter (principal); S52.122A Displaced fracture of head of left radius, initial encounter for closed fracture; S69.90XA Unspecified injury of unspecified wrist, hand and finger(s), initial encounter
CPT/HCPCS: 99213

== ENCOUNTER → 2025-02-25 09:54 | Outpatient (BNVA) | payer OTHER, SELFPAY | PROVIDERS: PCP Internal Medicine; Visit Provider Orthopaedic Surgery | DX: S60.212D Contusion of left wrist, subsequent encounter (principal); S52.122D Displaced fracture of head of left radius, subsequent encounter for closed fracture with routine healing | CPT/HCPCS: 99212 ==

== ENCOUNTER 2025-03-11 08:50 | Outpatient (REF) | payer OTHER, SELFPAY ==
--- NOTE | ~2025-03-11 | XR_ITS ---
EXAMINATION: XR ELBOW, LEFT CLINICAL INFORMATION: M25.522 - Pain in left elbow , follow-up radial head fracture COMPARISON: February 11 and January 23, 2025 TECHNIQUE: AP, lateral, and oblique views of the left elbow. FINDINGS: Again seen is an intra-articular fracture involving the lateral portion of the radial head with slight distal tilt of the lateral margin. Fat pads are not longer visible. There is mild degenerative change with small marginal osteophytes involving the medial aspect of the coronoid. No other abnormalities are evident XR/XR elbow LT min 3V IMPRESSION: Radial head fracture remains faintly visible with no interval shift in positioning across the fracture and interval resolution of a joint effusion. Mild degenerative changes involving medial coronoid. Electronically signed by: Ernesto Sandhu MD 03/11/2025 10:06 AM EDT
--- OUTSIDE RECORDS SUMMARY | 2025-03-11 09:42 | XMS_ITS | Patient Health Record ---
Author Organization [facility] Address [address] [place] [address] Care Team Providers Care Stain Dipper Name Role Phone Radha LEE, Hali Primary [...] Risk Notes Problem Screening for colon cancer (874821578) Screening for colon cancer (V76.51) Active confirmed Problem Colon cancer screening (027501951) Colon cancer screening (Z12.11) Active confirmed Problem Gastro-esophagea l reflux disease without esophagitis (515525851) Gastro-esophage al reflux disease without esophagitis (K21.9) Active confirmed Plan Of Treatment Future Test Test Name Order Date COLONOSCOPY 01/16/2013 COLONOSCOPY 05/26/2015 Insurance Providers Payer Name Payer Address Payer Phone Subscriber Number Group Number Insured Name Patient Relationship to Insured Coverage Start Date Coverage End Date [facility] [address] [facility] [id number] TROY CEDEÑO Self - patient is the insured Medical (General) History Medical History History ICD Code anxiety sensory neuropathy migraine headaches Surgical History Surgery Date(Month/Year) tubal ligation
== END 2025-03-11 08:51 | disposition home or self-care (01) ==
LOC: HO.HOSX 08:50
DX: S52.122D Displaced fracture of head of left radius, subsequent encounter for closed fracture with routine healing (principal); X58.XXXD Exposure to other specified factors, subsequent encounter
CPT/HCPCS: 73080; 99212

== ENCOUNTER 2025-03-11 09:39 | Outpatient (AMB) | payer OTHER, SELFPAY ==
--- NOTE | 2025-03-11 09:40 | A.OFFVIS_ITS ---
Vital Signs 03/11/25 09:48 Height 4 ft 11 in Weight 146 lb BMI 29.5 Handedness Right Intake Visit Reasons: OV-Left elbow Pain -4WK follow up Intake Note: Carolyn is a 65 year old right hand dominant female who presents today in office for a follow up and range of motion check for her left scapholunate ligament mild widening and left distal radius contusion, DOI: 01/08/2025. At her last visit in office with Dr Christel Howe she ordered an additional course of OT hand therapy to work on stretching, gentle strengthening, and normalizing function. Patient reports she has been attending OT and sees some improvement. Denies numbness and tingling. She states when she does certain activities with her left hand such as clicking in a seat belt or grabbing things causes pain in the left hand so she swicthes to use her right hand. Allergies peanut Allergy (Intermediate, Verified 03/11/25 09:47) hives and edema ibuprofen Allergy (Mild, Verified 03/11/25 09:47) Hives environmental allergies Allergy (Unknown, Verified 03/11/25 09:47) Unknown HPI HPI OV-Left elbow Pain -4WK follow up: Details: Carolyn is a 65 year old right hand dominant female who presents today in office for a follow up for a left radial head fracture, DOI: 01/08/2025. At her last visit in office with Dr Christel Howe she ordered an additional course of OT hand therapy to work on stretching, gentle strengthening, and normalizing function. Patient reports she has been attending OT and sees some improvement. Denies numbness and tingling. She states when she does certain activities with her left hand such as clicking in a seat belt or grabbing things causes pain in the left hand so she swicthes to use her right hand. [facility] Medical History (Updated 03/11/25 @ 09:54 by VEE Lyons) Scapholunate ligament injury with no instability Left radial head fracture (~01/08/25) Visit for suture removal HLD (hyperlipidemia) Hypertension Surgical History History of colonoscopy (~09/08/15) History of bilateral fallopian tube excision Family History Father Diabetes Prostate cancer Mother HTN (hypertension) Maternal Uncle Colon cancer Social History Alcohol intake: current Alcohol intake frequency: holidays/special occasions only Patient Tobacco Use Status: Never used Tobacco Current occupational status: retired 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 Neuro: Normal sensation of the tips of all digits of the left hand at this time Vascular: Cap refill brisk Pain: No tenderness to palpation of the left radial head No pain with range of motion of the left elbow ROM: Patient is able to make a closed fist Patient is able to extend the left elbow to 0 degrees degrees and can flex to approximately 100 degrees Pronation full and intact Patient is able to supinate to approximately 80 degrees past neutral Skin: No lacerations or abrasions. General: No ecchymosis, erythema, or evidence of infection. Psych: Appears grossly normal Affect normal Attitude cooperative Assessment & Plan Assessment & Plan (1) Left radial head fracture: Onset Date: ~01/08/25 Code(s): S52.122A - Displaced fracture of head of left radius, initial encounter for closed fracture Category: Medical Plan 1. Left radial head fracture Date of injury 01/08/2025 Patient appears to be recovering well from her injury Patient is educated about the typical recovery course Patient may increase to a 4-5 lb weight limit over the next 3-4 weeks Patient should continue with occupational therapy for range of motion of the left elbow No further sling use indicated Follow-up in 4-6 weeks month with repeat x-rays for reassessment, sooner with any acute concerns Orders: Orders XR elbow LT min 3V Today M25.522 - Pain in left elbow Coding Level of Care Code Global (49608) Diagnoses Left radial head fracture S52.122A
[2025-03-11 09:48] VITALS: BMI 29.5
== END 2025-03-11 10:02 | disposition home or self-care (01) ==
LOC: HO.HOS 09:39
PROVIDERS: PCP Internal Medicine
DX: S52.122A Displaced fracture of head of left radius, initial encounter for closed fracture (principal)
CPT/HCPCS: 99213

== ENCOUNTER → 2025-03-11 09:40 | Outpatient (BNV) | payer OTHER, SELFPAY | PROVIDERS: Visit Provider Radiology Diagnostic Radiology | DX: S52.122A Displaced fracture of head of left radius, initial encounter for closed fracture (principal); M19.022 Primary osteoarthritis, left elbow | CPT/HCPCS: 73080 ==

== ENCOUNTER 2025-04-03 11:21 | Outpatient (REF) | payer OTHER, SELFPAY ==
--- NOTE | ~2025-04-03 | XR_ITS ---
EXAMINATION: XR ELBOW 3 VIEWS LEFT HISTORY: M25.522 - Pain in left elbow COMPARISON: Comparison is made with the prior examination dated 03/11/2025. FINDINGS: Three views of the left elbow are submitted. Osseous mineralization is normal. Again seen is deformity of the radial head the site of the previously noted fracture. The fracture line is poorly visualized, consistent with continued healing. The joint spaces are preserved. The soft tissues are unremarkable. There is no joint effusion. XR/XR elbow LT min 3V IMPRESSION: Further healing of the previously seen intra-articular fracture of the radial head. Electronically signed by: Wisam Carver MD 04/03/2025 11:54 AM EST
--- OUTSIDE RECORDS SUMMARY | 2025-04-03 12:14 | XMS_ITS | Patient Health Record ---
Author Organization [facility] Address [address] [place] [address] Care Team Providers Care Community Relations Assistant Name Role Phone Radha LEE, Hali Primary Care Provider Damon Givens Jr Unavailable Allergies Allergen (clinical drug ingredient) Drug/Non Drug Allergy documented on EMR Reaction Allergy Type Onset Date Status ibuprofen Ibuprofen Unknown Drug Allergy Active Reason For Referral No Information Medications Medication SIG (Take, Route, Frequency, Duration) Notes Start Date End Date Status Omeprazole 20 MG Capsule Delayed Release 1 capsule Orally Once a day/prn Active OsmoPrep 1.102-0.398 GM Tablet 32 tablets Orally over two days as directed; Duration: 2 day(s) 05/26/2015 Active LORazepam 0.5mg Acti ve Social History Social History Additional Details Category Social Info Options Details Miscellaneous: Marital status: 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 Problems Problem Type SNOMED Code ICD Code Onset Dates Problem Status W/U Status Risk Notes Problem Screening for colon cancer (384672174) Screening for colon cancer (V76.51) Active confirmed Problem Colon cancer screening (560054498) Colon cancer screening (Z12.11) Active confirmed Problem Gastro-esophagea l reflux disease without esophagitis (802717095) Gastro-esophage al reflux disease without esophagitis (K21.9) Active confirmed Plan Of Treatment Future Test Test Name Order Date COLONOSCOPY 01/16/2013 COLONOSCOPY 05/26/2015 Insurance Providers Payer Name Payer Address Payer Phone Subscriber Number Group Number Insured Name Patient Relationship to Insured Coverage Start Date Coverage End Date [facility] [address] [place] [phone] [id number] NUNEZ Self - patient is the insured Medical (General) History Medical History History ICD Code anxiety sensory neuropathy migraine headaches Surgical History Surgery Date(Month/Year) tubal ligation
== END 2025-04-03 11:22 | disposition home or self-care (01) ==
LOC: HO.HOSX 11:21
DX: S52.122D Displaced fracture of head of left radius, subsequent encounter for closed fracture with routine healing (principal)
CPT/HCPCS: 73080; 99212

== ENCOUNTER 2025-04-03 11:27 | Outpatient (AMB) | payer OTHER, SELFPAY ==
--- NOTE | 2025-04-03 11:42 | A.OFFVIS_ITS ---
Vital Signs 04/03/25 11:43 Height 4 ft 1 in Weight 146 lb BMI 42.7 Intake Visit Reasons: OV:LT Rad Head Fx, DOI 01/08/25 w/xray (re-injured) Intake Note: Carolyn is a 65 year old right hand dominant female who presents today for Follow Up status post Left Radial Head Fracture, DOI: 01/08/2025. At her last visit, she was notified she may increase to a 4-5 lb weight limit over the upcoming 3-4 weeks. She was advised to continue with occupational therapy for range of motion of the left elbow. Today, patient reports she injured her left wrist during vacation. She thinks she twisted . She complains of pain on the lateral aspect of the left forearm without any associated numbness or tingling. She is not taking any pain medications at this time. Allergies peanut Allergy (Intermediate, Verified 04/03/25 11:49) hives and edema ibuprofen Allergy (Mild, Verified 04/03/25 11:49) Hives environmental allergies Allergy (Unknown, Verified 04/03/25 11:49) Unknown HPI HPI OV:LT Rad Head Fx, DOI 01/08/25 w/xray (re-injured): Details: Carolyn is a 65 year old right hand dominant female who presents today for Follow Up status post Left Radial Head Fracture, DOI: 01/08/2025. At her last visit, she was notified she may increase to a 4-5 lb weight limit over the upcoming 3-4 weeks. She was advised to continue with occupational therapy for range of motion of the left elbow. Today, patient reports she injured her left forearm and elbow during vacation while locking up a railing. She thinks she twisted the forearm and caused some soreness in the left elbow in the area of her fracture. She complains of pain on the lateral aspect of the left forearm without any associated numbness or tingling. She is not taking any pain medications at this time. [facility] Medical History (Updated 03/11/25 @ 09:54 by VEE Lyons) Scapholunate ligament injury with no instability Left radial head fracture (~01/08/25) Visit for suture removal HLD (hyperlipidemia) Hypertension Surgical History History of colonoscopy (~09/08/15) History of bilateral fallopian tube excision Family History Father Diabetes Prostate cancer Mother HTN (hypertension) Maternal Uncle Colon cancer Social History Alcohol intake: current Alcohol intake frequency: holidays/special occasions only Patient Tobacco Use Status: Never used Tobacco Current occupational status: retired Current occupation: rt handed Review of Systems Const All systems reviewed & are unremarkable except as noted in HPI and below Physical Exam Vital Signs: BMI result Body Mass Index 42.7 Extrem Other: Patient is alert, oriented, and in no acute distress. Neuro: Normal sensation of the tips of all digits of the left hand at this time Vascular: Cap refill brisk Pain: No tenderness to palpation of the left radial head No pain with range of motion of the left elbow ROM: Patient is able to make a closed fist Patient is able to extend the left elbow to 0 degrees degrees and can flex to approximately 100 degrees Pronation full and intact Patient is able to supinate to approximately 90 degrees past neutral Skin: No lacerations or abrasions. General: No ecchymosis, erythema, or evidence of infection. Psych: Appears grossly normal Affect normal Attitude cooperative Results Reviewed Results Reviewed: X-rays obtained in the office today and independently reviewed by me, Calvin Richards PA-C, demonstrate minimally displaced fracture of the left radial head in similar clinical alignment to previous evaluation with evidence of good interval bony healing Assessment & Plan Assessment & Plan (1) Left radial head fracture: Onset Date: ~01/08/25 Code(s): S52.122A - Displaced fracture of head of left radius, initial encounter for closed fracture Category: Medical Plan 1. Left radial head fracture Date of injury 01/08/2025 Patient appears to be recovering well from her injury Patient is educated about the typical recovery course Patient may increase to a 10 lb weight limit over the next 3-4 weeks Patient should continue with occupational therapy for range of motion of the left elbow, as her range of motion has improved significantly and I feel this will only continue to help her No further sling use indicated Follow-up in 6-8 weeks month with repeat x-rays for reassessment, sooner with any acute concerns Orders: Orders XR elbow LT min 3V Today M25.522 - Pain in left elbow Coding Level of Care Code Global (18497) Diagnoses Left radial head fracture S52.122A
[2025-04-03 11:43] VITALS: BMI 42.7
== END 2025-04-03 11:57 | disposition home or self-care (01) ==
LOC: HO.HOS 11:28
PROVIDERS: PCP Internal Medicine
DX: S52.122A Displaced fracture of head of left radius, initial encounter for closed fracture (principal)
CPT/HCPCS: 99213

== ENCOUNTER → 2025-04-03 11:32 | Outpatient (BNV) | payer OTHER, SELFPAY | PROVIDERS: Visit Provider Radiology Diagnostic Radiology | DX: S52.122D Displaced fracture of head of left radius, subsequent encounter for closed fracture with routine healing (principal) | CPT/HCPCS: 73080 ==

== ENCOUNTER 2025-04-27 07:41 | Outpatient (AMB) | payer OTHER, SELFPAY ==
--- OUTSIDE RECORDS SUMMARY | 2025-04-27 07:45 | XMS_ITS | Patient Health Record ---
Author Organization [facility] Address [address] [place] [address] Care Team Providers Care Dining Chair Seat Cushion Trimmer Name Role Phone Radha LEE, Hali Primary [...] Risk Notes Problem Screening for colon cancer (512000516) Screening for colon cancer (V76.51) Active confirmed Problem Colon cancer screening (622770071) Colon cancer screening (Z12.11) Active confirmed Problem Gastro-esophagea l reflux disease without esophagitis (222925408) Gastro-esophage al reflux disease without esophagitis (K21.9) Active confirmed Plan Of Treatment Future Test Test Name Order Date COLONOSCOPY 01/16/2013 COLONOSCOPY 05/26/2015 Insurance Providers Payer Name Payer Address Payer Phone Subscriber Number Group Number Insured Name Patient Relationship to Insured Coverage Start Date Coverage End Date [facility] [address] [place] [phone] [id number] NUNEZ Self - patient is the insured Medical (General) History Medical History History ICD Code anxiety sensory neuropathy migraine headaches Surgical History Surgery Date(Month/Year) tubal ligation
--- NOTE | 2025-04-27 08:03 | A.OFFPC_ITS ---
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 Required: No Accompanied by: Self / Same As Patient Allergies peanut Allergy (Intermediate, Verified 04/27/25 08:04) hives and edema ibuprofen Allergy (Mild, Verified 04/27/25 08:04) Hives environmental allergies Allergy (Unknown, Verified 04/27/25 08:04) Unknown Tobacco use date assessed: 04/27/25 Dental Screening Dental Screen Date: 04/27/25 Did you have a dental visit in the last 12 months?: No Did you have a dental problem in the last 6 months where you did not have access to dental care?: No HPI HPI Comments History of Present Illness Details 64-year-old female with history of hyper tension, hyperlipidemia, and atherosclerosis of the aorta presents to the office today for management of chronic conditions. Hypertension-has been taking amlodipine 5 mg daily but stopped this medication as she felt like it was causing her /GI side effects Hyperlipidemia/aortic atherosclerosis-previously following with Dr. Donnelly in Cardiology. No evidence of aortic aneurysm but recommending optimization of ldL. She had been taking atorvastatin 20 mg daily which she discontinued on her own. Goal for LDL less than 70. Last LDL was 128. ASCVD risk 3.8% Concerns: Recurrent falls. Feels off balance. No radicular back pain. No shuffing. No prodrome. Neuro appt next month Fall 12/2024- s/p radial fracture with humerus hematoma with 3 sutures placed in the L brow. Did OT, still limited ROM L wrist Health maintenance: Last mammogram [id number] follow-up advised for left breast given history of solid mass with biopsy showing fibroadenoma without any atypia or malignancy. Following with General surgery Last Pap smear 05/30 Last colonoscopy 08/2015 with 10 year follow-up advised. Dr. Perales ROS: General: No fevers, malaise, unintentional weight loss HEENT: No blurred vision, diplopia. No sore throat, nasal congestion, rhinorrhea, sinus pain, ear pain Cardiovascular: No chest pain, palpitations, or leg edema Respiratory: No shortness of breath, wheezing, cough MSK: No myalgia, back pain Neuro: No headaches, weakness, paresthesias. see hpi Skin: No rashes or lesions EXAM: Constitutional - Awake and Alert, No apparent distress Eyes - PERRL Cardiovascular - S1S2, RRR, No edema Respiratory - Normal lung expansion, Normal respiratory effort, No respiratory distress, CTA bilaterally Extremities - no calf tenderness bilaterally, no swelling Skin - Warm/Dry Neurological - Alert & oriented x3, normal gait Psychological - Appropriate affect [facility] Medical History Scapholunate ligament injury with no instability Left radial head fracture (~01/08/25) Visit for suture removal HLD (hyperlipidemia) Hypertension Surgical History History of colonoscopy (~09/08/15) History of bilateral fallopian tube excision Family History Father Diabetes Prostate cancer Mother HTN (hypertension) Maternal Uncle Colon cancer Social History Housing: House Alcohol intake: current Alcohol intake frequency: holidays/special occasions only Patient Tobacco Use Status: Never used Tobacco e-Cigarette/Vaping Use: Never Used service: No Current occupational status: retired Current occupation: rt handed Cognitive needs: No Hearing needs: No Vision needs: No Questionnaire PHQ-9 Over the last 2 weeks, how often have you been bothered by any of the following problems? 1. Little interest or pleasure in doing things: not at all 2. Feeling down, depressed, or hopeless: not at all 3. Trouble falling or staying asleep, or sleeping too much: not at all 4. Feeling tired or having little energy: not at all 5. Poor appetite or overeating: not at all 6. Feeling bad about yourself - or that you are a failure or have let yourself or your family down: not at all 7. Trouble concentrating on things, such as reading the newspaper or watching television: not at all 8. Moving or speaking so slowly that other people could have noticed. Or the opposite - being so fidgety or restless that you have been moving around a lot more than usual: not at all 9. Thoughts that you would be better off or of hurting yourself in some way: not at all Total score: 0 Depression Screening Interpretation: Negative Depression Screening Done: Yes Source: Developed by Drs. Wisam Ledezma, Shayy Walden, Eddie Dasilva and colleagues, with an educational franklyn from [employer]. Thrive Questionnaire Date Thrive assessed: 04/27/25 I am a: Patient Within the past 12 months, did the food you bought not last and you didn't have the money to get more?: Never true Within the past 12 months, did you worry whether your food would run out before you got money to buy more?: Never true Do you have trouble paying for medicines?: No Do you have trouble getting transportation to medical appointments?: No Do you have trouble paying your heating and electricity bill?: No Do you have trouble taking care of your child, family member or friend?: No Do you have trouble with day-to-day activities such as bathing, preparing meals, shopping, managing finances, etc.?: No Are you currently unemployed and looking for a job?: No Are you interested in more education?: No THRIVE Score: 0 AUDIT C Alcohol Use Questionnaire (AUDIT-C) 1. How often do you have a drink containing alcohol?: Monthly or less 2. How many drinks containing alcohol do you have on a typical day when you are drinking?: 1 or 2 3. How often do you have six or more drinks on one occasion?: Less than monthly Total Score: 2 MATILDE-7 AMB Questionnaire MATILDE-7 Date MATILDE - 7 assessed: 04/27/25 Feeling nervous, anxious, or on edge: 0 = Not at all Not being able to stop or control worryin = Not at all Worrying too much about different things: 0 = Not at all Trouble relaxin = Not at all Being so restless that it is hard to sit still: 0 = Not at all Becoming easily annoyed or irritable: 0 = Not at all Feeling afraid as if something awful might happen: 0 = Not at all Total MATILDE-7 score (0-4 normal; 5-9 mild; 10-14 moderate; 15-21 severe): 0 Source: Developed by Drs. Wisam Ledezma, Shayy Walden, Eddie Dasilva and colleagues, with an educational franklyn from [employer]. Physical exam (Primary Care) Vital Signs: Last Vital Signs Temp 98.7 F 04/27/25 08:04 Pulse 65 04/27/25 08:04 BP 130/80 04/27/25 08:04 Pulse Ox 99 04/27/25 08:04 Oxygen Delivery Method Room Air 04/27/25 08:04 BMI result Body Mass Index 29.1 Tobacco/Smoking Status: Tobacco use Status Tobacco use date assessed 04/27/25 04/27/25 08:11 Patient Tobacco Use Status Never used Tobacco 04/27/25 08:04 e-Cigarette/Vaping Use Never Used 04/27/25 08:11 PHQ-9: PHQ-9 Score PHQ-9: Total score 0 04/27/25 08:12 Depression Screening Interpretation: Negative Thrive Assessment: Date of Thrive Assessment Date Thrive assessed 04/27/25 04/27/25 08:11 Coding Level of Care Code Est Pt Level 4 (57018) Add On Problem Visit Only Diagnoses Hypertension I10 HLD (hyperlipidemia) E78.5 Fibroadenoma of left breast D24.2 Abdominal aortic atherosclerosis I70.0 Assessment & Plan Assessment & Plan (1) Hypertension: Code(s): I10 - Essential (primary) hypertension Category: Medical Plan: Controlled at this time with blood pressure 130/80. We will continue monitoring for now. Low-sodium diet (2) HLD (hyperlipidemia): Code(s): E78.5 - Hyperlipidemia, unspecified Category: Medical Plan: Not at goal with LDL 128, goal less than given history of atherosclerosis of the aorta. Last cardiology note reviewed. Will recheck lipid profile today and calculate ASCVD risk score. Recommend diet low in saturated fat and highly processed foods. (3) Fibroadenoma of left breast: Code(s): D24.2 - Benign neoplasm of left breast Category: Surgical Plan: Reviewed last mammogram recommending 6 month follow-up of the left breast given fibroadenoma. Continue following with General surgery (4) Abdominal aortic atherosclerosis: Code(s): I70.0 - Atherosclerosis of aorta Category: Medical Plan: Reviewed last note from Cardiology. Lipid panel ordered. Goal for LDL less than 70. Last ASCVD risk score was only 3.1% with optimal risk score 2.1%, which is not significant. She does decline statin at this time, we will continue monitoring. Recommend diet lower in saturated fats, highly processed foods as well as increased exercise Plan Follow-up in 6 months, labs to be completed today as well as 6 months for now prior to her visit Orders: Orders Lipid Panel 6 Months E78.5 - Hyperlipidemia, unspecified, I10 - Essential (primary) hypertension, I70.0 - Atherosclerosis of aorta Vitamin D 25-OH Total 6 Months E78.5 - Hyperlipidemia, unspecified, I10 - Essential (primary) hypertension, I70.0 - Atherosclerosis of aorta Basic Metabolic Panel Today E78.5 - Hyperlipidemia, unspecified, I10 - Essential (primary) hypertension Lipid Panel Today E78.5 - Hyperlipidemia, unspecified, I10 - Essential (primary) hypertension Basic Metabolic Panel 6 Months E78.5 - Hyperlipidemia, unspecified, I10 - Essential (primary) hypertension, I70.0 - Atherosclerosis of aorta Hemoglobin A1c 6 Months E78.5 - Hyperlipidemia, unspecified, I10 - Essential (primary) hypertension, I70.0 - Atherosclerosis of aorta Liver Panel 6 Months E78.5 - Hyperlipidemia, unspecified, I10 - Essential (primary) hypertension, I70.0 - Atherosclerosis of aorta
[2025-04-27 08:04] VITALS: BP 130/80; PULSE 65; TEMP 37.1; O2SAT 99; BMI 29.1
== END 2025-04-27 08:37 | disposition home or self-care (01) ==
LOC: HO.HMCHD 07:42
PROVIDERS: PCP Internal Medicine; Visit Provider Physician Assistant
DX: I10 Essential (primary) hypertension (principal); E78.5 Hyperlipidemia, unspecified; D24.2 Benign neoplasm of left breast; I70.0 Atherosclerosis of aorta

== ENCOUNTER 2025-04-27 07:41 | Outpatient (REF) | payer OTHER, SELFPAY ==
[2025-04-27 10:48] LABS: Anion Gap 10 (12-20); Blood Urea Nitrogen 10 mg/dL (9-16); Calcium 9.4 mg/dL (8.4-10.2); Carbon Dioxide 28 mmol/L (22-29); Chloride 107 mmol/L (96-108); Cholesterol 198 mg/dL (<200); Estimated Glomerular Filt Rate > 60; HDL Cholesterol 46 mg/dL (>40); Potassium 4.7 mmol/L (3.3-5.1); Sodium 140 mmol/L (135-145); Triglycerides 132 mg/dL (<150)
== END 2025-04-27 07:42 | disposition home or self-care (01) ==
LOC: HO.LAB 07:41
PROVIDERS: PCP Internal Medicine; Visit Provider Physician Assistant
DX: I10 Essential (primary) hypertension (principal); E78.5 Hyperlipidemia, unspecified; D24.2 Benign neoplasm of left breast; I70.0 Atherosclerosis of aorta
CPT/HCPCS: 36415; 80048; 80061; 99212

== ENCOUNTER 2025-05-05 10:13 | Outpatient (REF) | payer OTHER, SELFPAY ==
--- NOTE | ~2025-05-05 | MM_ITS ---
EXAMINATION: DXA BONE DENSITY AXIAL HISTORY: M89.8X9 - Other specified disorders of bone, unspecified site TECHNIQUE: [employer] Dual energy absorptiometry (DEXA) of the lumbar spine, total left hip, and femoral neck was performed. COMPARISON: Comparison is made with the prior examination dated 04/06/2015. FINDINGS: The bone mineral density of the lumbar spine is 1.023 g/cm2, corresponding to a T-score of -1.3, and a Z-score of 0.1. This is indicative of osteopenia. This represents a BMD change of -3.9% compared to the prior exam. This is statistically significant. The bone mineral density of the left total hip is 0.855 g/cm2, corresponding to a T-score of -1.2, and a Z-score of -0.1. This is indicative of osteopenia. This represents a BMD change of -0.2% compared to the prior exam. This is not statistically significant. The bone mineral density of the left femoral neck is 0.714 g/cm2, corresponding to a T-score of -2.3, and a Z-score of -1.0. This is indicative of osteopenia. This represents a BMD change of -1.2% compared to the prior exam. FRACTURE RISK: The FRAX index suggests a ten year probability of major osteoporotic fracture of 11.0%, and of hip fracture 1.9%. MM/XR DEXA axial skeleton IMPRESSION: Based on bone mineral density, and according to World Health Organization (WHO) criteria, the diagnosis is consistent with osteopenia. Statistically, 68% of repeat scans fall within 1 SD (+/- 0.010 g/cm2 for AP spine L1-L4) and 1 SD (+/- 0.012 g/cm2 for femur total) FRAX is a trademark of the [employer] [place] [employer] Metabolic Bone Disease, a World Health Organization (WHO) Collaborating Center. Electronically signed by: Wisam Carver MD 05/05/2025 10:52 AM [facility]
--- OUTSIDE RECORDS SUMMARY | 2025-05-05 11:18 | XMS_ITS | Patient Health Record ---
Author Organization [facility] Address [address] [place] [address] Care Team Providers Care Metal Trimmer Name Role Phone Radha LEE, Hali [...] Risk Notes Problem Screening for colon cancer ([id number]) Screening for colon cancer (V76.51) Active confirmed Problem Colon cancer screening (684874731) Colon cancer screening (Z12.11) Active confirmed Problem Gastro-esophagea l reflux disease without esophagitis (958221109) Gastro-esophage al reflux disease without esophagitis (K21.9) Active confirmed Plan Of Treatment Future Test Test Name Order Date COLONOSCOPY 01/16/2013 COLONOSCOPY 05/26/2015 Insurance Providers Payer Name Payer Address Payer Phone Subscriber Number Group Number Insured Name Patient Relationship to Insured Coverage Start Date Coverage End Date [facility] [address] [facility] [phone] [id number] NUNEZ Self - patient is the insured Medical (General) History Medical History History ICD Code anxiety sensory neuropathy migraine headaches Surgical History Surgery Date(Month/Year) tubal ligation
== END 2025-05-05 10:14 | disposition home or self-care (01) ==
LOC: HO.MAMMO 10:13
PROVIDERS: PCP Physician Assistant; Visit Provider Physician Assistant
DX: M89.8X0 Other specified disorders of bone, multiple sites (principal); T07.XXXA Unspecified multiple injuries, initial encounter; Z13.820 Encounter for screening for osteoporosis
CPT/HCPCS: 77080

== ENCOUNTER → 2025-05-05 10:30 | Outpatient (BNV) | payer OTHER, SELFPAY | PROVIDERS: PCP Physician Assistant; Visit Provider Radiology Diagnostic Radiology | DX: E28.39 Other primary ovarian failure (principal) | CPT/HCPCS: 77080 ==